=== PATIENT | male | born 1975 | race Caucasian/White ===

== ENCOUNTER 2020-09-17 10:10 | Outpatient (REF) | payer OTHER, SELFPAY ==
[2020-09-17 11:12] LABS: Alanine Aminotransferase 58 U/L (0-40); Albumin Level 4.3 g/dL (3.5-5.0); Alkaline Phosphatase 70 U/L (39-117); Aspartate Amino Transferase 40 U/L (5-37); Bilirubin Direct 0.4 mg/dL (0.0-0.5); Bilirubin Total 1.1 mg/dL (0.0-1.0); Cholesterol 155 mg/dL; HDL Cholesterol 40 mg/dL; LDL Cholesterol Calculated 96 mg/dl; Total Protein 6.7 g/dL (6.5-8.0); Triglycerides 99 mg/dL
[2020-09-17 13:07] LABS: Reflex LDLD? No
== END 2020-09-17 10:11 | disposition home or self-care (01) ==
LOC: HO.LNP 10:10
PROVIDERS: Visit Provider Internal Medicine
DX: E78.5 Hyperlipidemia, unspecified (principal)
CPT/HCPCS: 80061; 80076

== ENCOUNTER 2021-03-16 10:28 | Outpatient (REF) | payer OTHER, SELFPAY ==
[2021-03-16 10:32] LABS: MANUAL DIFF FLAG NO
[2021-03-16 10:59] LABS: Eosinophils Absolute Auto 0.1 X10*3/uL (0.0-0.4); Eosinophils Percent Auto 1.1 % (0-4); Imm Gran Abs Auto 0.01 X10*3/uL (0.00-0.03); Imm Gran Pct Auto 0.2 % (0.0-0.4); Mean Corpuscular HGB Conc 34.5 g/dl (31.0-36.0); Mean Corpuscular Volume 94.6 fL (80.0-98.0); Red Cell Distribution Width 12.2 % (11.0-16.0)
[2021-03-16 11:03] LABS: Appearance Urine CLEAR; Color Urine YELLOW; Glucose Urine UA NEG (NEG); Leukocyte Esterase Urine NEG (NEG); Nitrite Urine NEG (NEG); Specific Gravity - Urine <= 1.005 (1.005-1.025); Urine Blood NEG (NEG); Urine Ketones NEG (NEG); Urine Protein NEG (NEG-TRACE)
[2021-03-16 11:10] LABS: Basophils Percent Auto 0.4 % (0-2); Hemoglobin 15.2 g/dl (14.0-18.0); Lymphocytes Absolute Auto 1.7 X10*3/uL (1.2-4.9); Lymphocytes Percent Auto 32.2 % (20-40); Mean Corpuscular Hemoglobin 32.7 pg (27.0-33.0); Mean Platelet Volume 10.6 fL (9.4-12.4); Monocytes Absolute Auto 0.5 X10*3/uL (0.1-1.2); Monocytes Percent Auto 8.9 % (2-11); Neutrophils Absolute Auto 3.1 x10*3/uL (2.0-8.3); Neutrophils Percent Auto 57.2 % (45-73); Platelet Count 203 X10*3/uL (160-400); Red Blood Count 4.65 X10*6/uL (4.60-5.80); White Blood Count 5.4 X10*3/uL (4.8-10.8)
[2021-03-16 11:42] LABS: Alanine Aminotransferase 44 U/L (0-40); Albumin Level 4.3 g/dL (3.5-5.0); Alkaline Phosphatase 75 U/L (39-117); Anion Gap 13 (12-20); Aspartate Amino Transferase 36 U/L (5-37); Bilirubin Total 1.5 mg/dL (0.0-1.0); Blood Urea Nitrogen 14 mg/dL (9-16); Calcium 9.3 mg/dL (8.4-10.2); Carbon Dioxide 26 mmol/L (22-29); Chloride 107 mmol/L (96-108); Cholesterol 160 mg/dL; Estimated Glomerular Filt Rate > 60; Glucose Fasting 98 mg/dL (60-99); HDL Cholesterol 43 mg/dL; LDL Cholesterol Calculated 91 mg/dl; Potassium 3.9 mmol/L (3.3-5.1); Sodium 142 mmol/L (135-145); Total Protein 6.8 g/dL (6.5-8.0); Triglycerides 134 mg/dL
[2021-03-16 12:05] LABS: PSA,Total (Free>4and<10) 0.67 ng/mL (0.00-4.00)
[2021-03-16 13:47] LABS: Reflex LDLD? No
== END 2021-03-16 10:29 | disposition home or self-care (01) ==
LOC: HO.LNP 10:28
PROVIDERS: PCP Internal Medicine; Visit Provider Internal Medicine
DX: Z00.00 Encounter for general adult medical examination without abnormal findings (principal); Z12.5 Encounter for screening for malignant neoplasm of prostate; E78.2 Mixed hyperlipidemia; E78.5 Hyperlipidemia, unspecified; R79.89 Other specified abnormal findings of blood chemistry
CPT/HCPCS: 80053; 80061; 81003; 84153; 85025

== ENCOUNTER 2022-03-17 10:48 | Outpatient (REF) | payer SELFPAY ==
[2022-03-17 10:52] LABS: MANUAL DIFF FLAG NO
[2022-03-17 11:08] LABS: Basophils Percent Auto 0.5 % (0-2); Eosinophils Absolute Auto 0.1 X10*3/uL (0.0-0.4); Eosinophils Percent Auto 1.5 % (0-4); Hematocrit 44.3 % (42.0-52.0); Hemoglobin 15.2 g/dl (14.0-18.0); Imm Gran Abs Auto 0.01 X10*3/uL (0.00-0.03); Imm Gran Pct Auto 0.2 % (0.0-0.4); Lymphocytes Absolute Auto 2.1 X10*3/uL (1.2-4.9); Lymphocytes Percent Auto 34.2 % (20-40); Mean Corpuscular HGB Conc 34.3 g/dl (31.0-36.0); Mean Corpuscular Hemoglobin 32.1 pg (27.0-33.0); Mean Corpuscular Volume 93.5 fL (80.0-98.0); Mean Platelet Volume 11.1 fL (9.4-12.4); Monocytes Absolute Auto 0.6 X10*3/uL (0.1-1.2); Monocytes Percent Auto 9.8 % (2-11); Neutrophils Absolute Auto 3.3 x10*3/uL (2.0-8.3); Neutrophils Percent Auto 53.8 % (45-73); Platelet Count 190 X10*3/uL (160-400); Red Blood Count 4.74 X10*6/uL (4.60-5.80); White Blood Count 6.2 X10*3/uL (4.8-10.8)
[2022-03-17 11:10] LABS: Appearance Urine Clear; Color Urine Yellow; Glucose Urine UA Negative (Negative); Leukocyte Esterase Urine Negative (Negative); Nitrite Urine Negative (Negative); PH 6.5 (5.0-9.0); Urine Blood Negative (Negative); Urine Ketones Negative (Negative); Urine Protein Negative (Neg-Trace)
[2022-03-17 11:14] LABS: Bacteria Urine None Seen (None Seen); Hyaline Casts Urine 0-2 /LPF (0-2); RBC Urine 0-2 /HPF (0-2); Squamous Epithelial Cell Urine 0-2 /HPF (0-2); WBC Urine 0-5 /HPF (0-5)
[2022-03-17 11:15] LABS: Alanine Aminotransferase 52 U/L (0-40); Albumin Level 4.4 g/dL (3.5-5.0); Alkaline Phosphatase 75 U/L (39-117); Anion Gap 15 (12-20); Aspartate Amino Transferase 38 U/L (5-37); Bilirubin Total 1.6 mg/dL (0.0-1.0); Blood Urea Nitrogen 12 mg/dL (9-16); Calcium 9.3 mg/dL (8.4-10.2); Carbon Dioxide 26 mmol/L (22-29); Chloride 104 mmol/L (96-108); Cholesterol 168 mg/dL; Estimated Glomerular Filt Rate > 60; Glucose Fasting 98 mg/dL (60-99); HDL Cholesterol 40 mg/dL; LDL Cholesterol Calculated 103 mg/dl; Sodium 141 mmol/L (135-145); Triglycerides 126 mg/dL
[2022-03-17 11:38] LABS: PSA,Total (Free>4and<10) 0.61 ng/mL (0.00-4.00)
== END 2022-03-17 10:49 | disposition home or self-care (01) ==
LOC: HO.LNP 10:48
PROVIDERS: Visit Provider Internal Medicine
DX: Z00.00 Encounter for general adult medical examination without abnormal findings (principal); Z12.5 Encounter for screening for malignant neoplasm of prostate; E78.5 Hyperlipidemia, unspecified; R79.89 Other specified abnormal findings of blood chemistry
CPT/HCPCS: 80053; 80061; 81001; 84153; 85025

== ENCOUNTER 2022-09-23 09:09 | Outpatient (REF) | payer BC, SELFPAY ==
[2022-09-23 10:35] LABS: Alanine Aminotransferase 34 U/L (0-40); Albumin Level 4.3 g/dL (3.5-5.0); Alkaline Phosphatase 73 U/L (39-117); Aspartate Amino Transferase 28 U/L (5-37); Bilirubin Direct 0.4 mg/dL (0.0-0.5); Bilirubin Total 1.6 mg/dL (0.0-1.0); Cholesterol 173 mg/dL; HDL Cholesterol 44 mg/dL; LDL Cholesterol Calculated 108 mg/dl; Total Protein 6.8 g/dL (6.5-8.0); Triglycerides 107 mg/dL
== END 2022-09-23 09:10 | disposition home or self-care (01) ==
LOC: HO.LNP 09:09
PROVIDERS: Visit Provider Internal Medicine
DX: E78.2 Mixed hyperlipidemia (principal)
CPT/HCPCS: 80061; 80076

== ENCOUNTER 2022-10-26 15:23 | Emergency (ER) | payer BC, SELFPAY ==
--- NOTE | ~2022-10-26 | CT_ITS ---
EXAMINATION: CT HEAD WITHOUT CONTRAST CLINICAL INFORMATION: Head injury. COMPARISON: None. TECHNIQUE: Contiguous axial imaging was performed from the skull base to vertex without intravenous administration of contrast. Coronal and sagittal reformatted images are performed at the CT scanner. [This CT examination was performed using dose optimization techniques as appropriate, variously including the following: *Automated exposure control *Adjustment of mA and/or kV according to patient size (this includes techniques or standardized protocols for targeted exams where dose is matched to indication/reason for exam; i.e. extremities or head) *Use of iterative reconstruction technique] DLP: 651 mGy-cm. FINDINGS: There is no evidence of acute intracranial hemorrhage or territorial infarction. No abnormal mass-effect or midline shift is seen. Hawthorne to white matter differentiation is well preserved. No extra-axial fluid collections are identified. The ventricles are normal in size. There is no abnormal attenuation within the brain parenchyma. There is no osseous abnormality. The mastoid air cells and visualized portions of the paranasal sinuses are well-aerated. CT/CT head/brain wo IV con IMPRESSION: No acute intracranial pathology.
--- NOTE | ~2022-10-26 | XR_ITS ---
EXAMINATION: XR ELBOW, LEFT CLINICAL INFORMATION: Left elbow pain, fell off a ladder COMPARISON: None available. TECHNIQUE: AP, lateral, and oblique views of the left elbow. FINDINGS: No definite evidence for acute fracture or dislocation; there is small spurring of lateral epicondyle. Radial head and neck appear intact. There is spurring of the coronoid process of the ulna. No appreciable distention of the elbow fat pads. XR/XR elbow LT min 3V IMPRESSION: 1. No definite evidence for acute fracture or dislocation. Degenerative changes. 2. Small spurring of the lateral epicondyle.
--- NOTE | 2022-10-26 15:43 | ED.GENADULT ---
HPI - General Adult General Chief complaint: Fall Stated complaint: fell off ladder, head injury, R elbow inj Time Seen by Provider: 10/26/22 17:39 Source: patient, RN notes reviewed and old records reviewed Mode of arrival: ambulatory History of Present Illness HPI narrative: 47-year-old male with no significant past medical history presenting to the ED complaining of facial laceration and left elbow pain s/p mechanical fall off 4-5 foot ladder around 1400. Denies taking anticoagulation or LOC. Last tetanus unknown. Denies symptoms prior to fall. Admits fell onto left side and hit head. Denies neck/back pain, abdominal pain, CP, incontinence, numbness/tingling, vision loss Onset (ago): hour(s) Related Data Allergies Allergy/AdvReac Type Severity Reaction Status Date / Time No Known Allergies Allergy Unverified 01/23/20 15:11 [No Known Allergies*] Review of Systems Review of Systems: Constitutional: No Fever, No Chills ENT/Mouth: No Ear Pain, No Nasal Congestion, No sore throat, No Rhinorrhea, No Swallowing Difficulty Cardiovascular: No Chest Pain, No SOB Respiratory: No Cough, No Sputum, No Wheezing Gastrointestinal: No Nausea, No Vomiting, No Diarrhea, No Constipation, No Abdominal pain Genitourinary: No Dysuria, No Urinary Frequency, No Hematuria, No Urinary Incontinence/retention Musculoskeletal: + joint pain, No Myalgias, No Joint Swelling, +headache Skin: + Skin Lesions, No rash Neuro: No Weakness, No Numbness, No Paresthesias Yes all other systems are reviewed and are negative Constitutional: Constitutional: Reports as per HPI Neurologic: Denies Abnormal speech present [facility] Past Medical History Attestation statement: The following information was validated with the patient. Source: old records reviewed Physical Exam ED Vital Signs: Vital Signs - 24 hr 10/26/22 15:45 10/26/22 17:38 Temperature 97.9 F Pulse Rate 76 58 Respiratory Rate 16 16 Blood Pressure 118/76 111/69 Pulse Oximetry 97 98 Oxygen Delivery Method Room Air Room Air BMI result Body Mass Index 26.0 Const General: cooperative, healthy appearing and no acute distress Orientation/consciousness: patient oriented x3 Limitations: no limitations HENMT Other: +1.5cm superficial irregular laceration noted to right lateral eyebrow. No active bleeding. No periorbital step-off Head: Yes normal to inspection and Yes atraumatic Ears: hearing grossly normal bilaterally General nose exam: Normal external nose present Face and sinus: Yes normal facial exam Throat: Yes posterior oropharynx normal Eyes General: appearance normal, both eyes and all related structures Pupils: Equal, round and reactive pupils present EOM: EOMs intact bilaterally Neck Other: No midline cervical spinous tenderness or step-off Neck: Yes normal visual inspection and Yes no meningeal signs Resp Effort & Inspection: normal respiratory effort and no respiratory distress Auscultation: clear to auscultation bilaterally Cardio Rate: regular rate Heart sounds: S1 normal heart sound present and S2 normal heart sound present GI Inspection: Yes normal to inspection Palpation (GI): Soft to palpation, nontender, no guarding and not rigid General: Yes no CVA tenderness Back/Spine/Pelvis Other: No midline cervical/thoracic/lumbar spinous tenderness/step-off or deformity Back: no CVA tenderness Skin Rashes: no rashes Wounds: no wounds Neuro General: patient oriented x3, gait normal, tone normal, moves all extremities, no meningeal signs, no focal motor deficits and CN's II-XI intact bilaterally Cranial nerves: Yes CN's II-XII intact bilaterally and Yes Equal, round and reactive pupils present Cognition (Neuro): normal cognition Speech: No Abnormal speech present Gait exam (Neuro): Normal gait present Motor exam (neuro): 5/5 motor strength present throughout Extrem Other: Left elbow without noted deformity. Mild swelling. Mild tenderness. Full range of motion intact with slight discomfort. Neurovascular intact distally. Pronation/supination intact General: Yes normal to inspection Course Course Course Narrative: CT head/brain wo IV con IMPRESSION: No acute intracranial pathology. XR elbow LT min 3V IMPRESSION: 1.? No definite evidence for acute fracture or dislocation. Degenerative changes. 2.? Small spurring of the lateral epicondyle. Results discussed with patient including worrisome signs and symptoms and strict return precautions, and when to return to the emergency department. They verbalized understanding and feel safe for discharge at this time. Medications Administered Discontinued Medications Generic Name Dose Route Start Last Admin Trade Name Freq PRN Reason Stop Dose Admin Diphtheria/Tetanus/Acell Pertussis 0.5 ml 10/26/22 15:48 10/26/22 17:45 Diphth,Pertus(Acell),Tet Adult 0.5 Ml Syringe IM 10/26/22 15:49 0.5 ml .ONCE ONE Administration Procedures Laceration Laceration 1: Site: face Side (If applicable): right Size (cm): 1.5 Description: irregular Depth: simple, single layer Pre-repair: wound explored Skin layer closed with: other (dermabond) Medical Decision Making Medical Decision Making [facility] Narrative: 47-year-old male with no significant past medical history presenting to the ED complaining of facial laceration and left elbow pain s/p mechanical fall off 4-5 foot ladder around 1400. On exam vital signs stable, NAD, nontoxic appearing my physical exam as noted above. Facial laceration noted, underlying structures intact, no raccoon eyes/Cordova sign, left elbow with mild tenderness. Concern for ICH vs fractures vs sprain. No evidence of infection plan: Head CT, x-ray repair wound Please refer to course for remaining clinical decision making, interpretation of labs/imaging results, and discussions with consultants and/or family members. Differential Diagnosis Differential Diagnoses: The differential diagnosis associated with the presentation includes As above Admission/Observation Consideration of admission/observation: Escalation of care including admission/observation considered Lab Data [facility] Lab Attestation statement: I reviewed the patient's lab results. Radiology Impression Discussion of test interpretation with radiology: I have reviewed the radiologist's reading. External Record Review External record reviewed: Inpatient record, Office record, Outpatient record, Prior outpatient labs, Prior outpatient radiology, Primary care record and Outside ED record Tests considered The following testing was considered but not selected: As above Discharge Plan Discharge Clinical Impression: Facial laceration, Elbow pain Patient Disposition: Home, Self-Care Instructions: Laceration (DC), Arm Pain (ED) Additional Instructions: Your head and elbow x-rays are unremarkable Your wound was repaired with skin glue, do not get the area, keep dry and clean Pat dry, do not rub If begins to look infected return to the ED your tetanus was updated Follow-up with your doctor. If symptoms persist or worsening of constant worsening headache, persistent nausea/vomiting or fever return to the ED Referrals: Gordon Cali MD [Primary Care Provider] - Discharge Date/Time: 10/26/22 18:15
[2022-10-26 15:45] VITALS: BP 118/76; PULSE 76; RESP 16; TEMP 36.6; O2SAT 97; BMI 26.0
[2022-10-26 17:38] VITALS: BP 111/69; PULSE 58; RESP 16; O2SAT 98
[2022-10-26] MEDS: Diphth,Pertus(ACell),Tet Adult 0.5 ML SYRINGE IM (17:45)
== END 2022-10-26 18:15 | disposition home or self-care (01) ==
PROVIDERS: Emergency Provider Emergency Medicine Emergency Medical Services; PCP Internal Medicine
DX: S01.81XA Laceration without foreign body of other part of head, initial encounter (principal); W11.XXXA Fall on and from ladder, initial encounter; M25.522 Pain in left elbow; Y93.9 Activity, unspecified; Y92.9 Unspecified place or not applicable; Y99.9 Unspecified external cause status
CPT/HCPCS: 12011; 70450; 73080; 90471; 90715; 99282; 99284

== ENCOUNTER 2023-02-24 11:43 | Day surgery (SDC) | payer BC, SELFPAY ==
--- NOTE | 2023-02-23 11:50 | P.CONAN_ITS ---
Documented by User: Jalyn Chaudhary NP 02/23/23 11:52 HPI - Anesthesia Eval Consult details Narrative: 48yo M for Upper Endoscopy and Colonoscopy [facility] Past Medical History Medical History (Updated 02/23/23 @ 11:51 by Jalyn Chaudhary NP) HLD (hyperlipidemia) Social History Social History Patient Tobacco Use Status: Never used Tobacco Are you DNR?: No Advance Directives: No Advance Directives Information Provided: Yes Recently lost weight without trying: No Nutrition Risks: No Nutritional Risk Poor oral hygiene: No Meds Allergies Allergy/AdvReac Type Severity Reaction Status Date / Time No Known Allergies Allergy Unverified 01/23/20 15:11 [No Known Allergies*] Home Medications Medication Instructions Recorded Confirmed Last Taken Type Fish Oil 02/23/23 02/20/23 History took half dose atorvastatin 10 mg tablet 10 mg PO DAILY 02/23/23 02/24/23 02/23/23 History multivitamin 02/23/23 02/17/23 History Exam Exam Date and Time: February 23, 2023 1150 Assessment and Plan Assessment Anesthesia Assessment: Chart Reviewed Documented by User: Panfilo Black MD 02/24/23 13:35 [facility] Past Medical History Medical History (Updated 02/23/23 @ 11:51 by Jalyn Chaudhary NP) HLD (hyperlipidemia) Family History Family history of problems with anesthesia: No Surgical History History of Problems with Anesthesia: No Social History Social History Patient Tobacco Use Status: Never used Tobacco Are you DNR?: No Advance Directives: No Advance Directives Information Provided: Yes Recently lost weight without trying: No Nutrition Risks: No Nutritional Risk Poor oral hygiene: No Meds Allergies Allergy/AdvReac Type Severity Reaction Status Date / Time No Known Allergies Allergy Unverified 01/23/20 15:11 [No Known Allergies*] Home Medications Medication Instructions Recorded Confirmed Last Taken Type Fish Oil 02/23/23 02/20/23 History took half dose atorvastatin 10 mg tablet 10 mg PO DAILY 02/23/23 02/24/23 02/23/23 History multivitamin 02/23/23 02/17/23 History Exam Airway Mallampati Class: II TM Dist: >3cm Neck ROM: Full Assessment and Plan Assessment Anesthesia Assessment: Anesthesia Plan Discussed Final Anesthetic Review Family History of Problems with Anesthesia: No History of Problems with Anesthesia: No NPO: Yes ASA Class: II Final Preanesthetic Review: No Changes in Pt Med Stat, Meds/Allgs Chart Reviewed, Consent Obtained/Reviewed and Anes Risks/Benef Reviewed Patient Risk: Low Procedure Risk: Low Anesthetic Plan Anesthetic Plan: MAC: Disposition: Standard PACU
[2023-02-24 11:56] VITALS: BMI 25.1
[2023-02-24 12:32] VITALS: BP 117/64; PULSE 89; RESP 18; TEMP 36.4; O2SAT 96
[2023-02-24] MEDS: Lactated Ringers 1,000 ML 100 ML IVCONT (12:34)
[2023-02-24 14:15] VITALS: BP 95/54; PULSE 80; RESP 16; TEMP 36.1; O2SAT 96
--- NOTE | 2023-02-24 14:25 | PM.OP ---
Brief Operative Note Date of Service: 02/24/23 Pre-op diagnosis: Screening, GERD Post-op diagnosis: other (Reflux, R/O Ramos's, Hiatal hernia, Gastritis/Gastric ulcer, Duodenitis, Colon polyp) Procedure: EGD with biopsies, Colonoscopy to the cecum and TI with bx/removal of polyp Surgeon: Jorge Zamudio MD Anesthesia: MAC Was an Leather Finisher used for this Procedure?: No Estimated blood loss (mL): 2.0 Pathology: other (A. Gastric antrum B. Esophagus 34-35cm C. Ascending colon polyp) Condition: stable Disposition: PACU
--- NOTE | 2023-02-24 14:27 | P.CONAN_ITS ---
[facility] Past Medical History Medical History (Updated 02/23/23 @ 11:51 by Jalyn Chaudhary NP) HLD (hyperlipidemia) Family History Family history of problems with anesthesia: No Surgical History History of Problems with Anesthesia: No Social History Social History Patient Tobacco Use Status: Never used Tobacco Meds Allergies Allergy/AdvReac Type Severity Reaction Status Date / Time No Known Allergies Allergy Unverified 01/23/20 15:11 [No Known Allergies*] Active Medications: Current Medications Lactated Ringer's (Lr) 1,000 mls @ 100 mls/hr IVCONT .Q10H ALLISON Last Admin: 02/24/23 12:34 Dose: 100 mls/hr Sodium Biphosphate/Sodium Phosphate (Sodium Phosphate,Luquillo-Dibasic 133 Ml Enema) 133 ml NC ONCE PRN PRN Reason: Poor Colonoscopy Prep Results Home Medications Medication Instructions Recorded Confirmed Last Taken Type Fish Oil 02/23/23 02/20/23 History took half dose atorvastatin 10 mg tablet 10 mg PO DAILY 02/23/23 02/24/23 02/23/23 History multivitamin 02/23/23 02/17/23 History Exam Exam Date and Time: February 24, 2023 1427 Height,Weight and Vital Signs: Height 5 ft 8 in Weight 74.843 kg Last Vital Signs Temp 97 F 02/24/23 14:15 Pulse 80 02/24/23 14:15 Resp 16 02/24/23 14:15 BP 95/54 L 02/24/23 14:15 Pulse Ox 96 02/24/23 14:15 O2 Del Method Room Air 02/24/23 14:15 Airway Mallampati Class: III TM Dist: >3cm Neck ROM: Full Assessment and Plan Assessment Anesthesia Assessment: Anesthesia Plan Discussed and Chart Reviewed Final Anesthetic Review Family History of Problems with Anesthesia: No History of Problems with Anesthesia: No NPO: Yes ASA Class: II Final Preanesthetic Review: No Changes in Pt Med Stat, Meds/Allgs Chart Reviewe d, Consent Obtained/Reviewed and Anes Risks/Benef Reviewed Patient Risk: Low Procedure Risk: Low Anesthetic Plan Anesthetic Plan: MAC: Disposition: Standard PACU
[2023-02-24 14:30] VITALS: BP 102/56; PULSE 66; RESP 16; TEMP 36.2; O2SAT 96
--- NOTE | 2023-02-24 21:07 | OP_ITS ---
DATE OF SERVICE: 02/24/2023 SURGEON: Jorge Zamudio MD INDICATIONS: The patient presents for evaluation of gastroesophageal reflux and colorectal cancer screening. Full consent was obtained from him for this, including risks of bleeding and perforation. PREOPERATIVE DIAGNOSIS: POSTOPERATIVE DIAGNOSIS: PROCEDURE PERFORMED: ESTIMATED BLOOD LOSS: COMPLICATIONS: ANESTHESIA: Monitored anesthesia care. ASSISTANTS: SPECIMENS: PREOPERATIVE DIAGNOSES: Gastroesophageal reflux disease, colorectal cancer screening. POSTOPERATIVE DIAGNOSES: Gastroesophageal reflux disease, colorectal cancer screening, rule out Ramos's esophagus, hiatal hernia, gastritis, gastric ulcers, duodenitis, colon polyp, internal hemorrhoids. PROCEDURES PERFORMED: Esophagogastroduodenoscopy with biopsies, and colonoscopy to the cecum and terminal ileum with biopsy and removal of polyp. DESCRIPTION OF PROCEDURE: The patient was placed in the left lateral decubitus position. The Olympus video gastroscope was passed in the posterior oropharynx and upper esophagus under direct vision. The scope was passed slowly to the distal esophagus. The gastroesophageal junction appeared at 35 cm. Extending from this to 34 cm were areas of some irregularity, edema, and possible Ramos's mucosa. There was no evidence of any ulceration nor any lesions. The scope entered the stomach. There was a small hiatal hernia. The scope was advanced to the pylorus. The duodenum was cannulated to the descending portion. The duodenum including the bulb was carefully inspected. There was some duodenitis in the duodenal bulb with small erosions, but no ulceration nor mass. The scope was withdrawn back into the stomach. In the gastric antrum, along the posterior wall, were 2 approximately 10 mm ulcers with surrounding edema and gastritis. There was no evidence of any mass and they appeared to be very benign. There was no bleeding. There was good peristalsis. The scope was retroflexed, visualizing the proximal stomach carefully, which appeared normal, without any sign of mass or ulceration. The scope was straightened. Biopsies were obtained from the area of the gastric ulcers and gastritis. The scope withdrawn back to the esophagus. Multiple biopsies were obtained between 34 and 35 cm. Proximal to 34 cm, the esophageal mucosa appeared normal. The scope was withdrawn from the patient. He was turned around for the colonoscopy. The digital rectal exam revealed no abnormalities. The Olympus video pediatric colonoscope was then entered into the rectum and advanced easily to the cecum. Once in the cecum, I did identify normal-appearing cecal pouch with appendiceal orifice and a normal-appearing ileocecal valve. The terminal ileum was cannulated and appeared normal. The scope was withdrawn back in the colon. The entire cecum and ileocecal valve appeared normal. The scope was then slowly withdrawn assessing all mucosal surfaces carefully. Preparation was excellent. In the proximal ascending colon, there was an approximately 4 mm polyp, which was biopsied and completely removed with the cold biopsy forceps. I did not visualize any other polyps, colitis, or angiodysplasia. In the rectum, scope was retroflexed visualizing internal hemorrhoids, but no other pathology. The rectal mucosa appeared normal. The scope was straightened and withdrawn from the patient. He tolerated both procedures well and was returned to the recovery area in stable condition. IMPRESSION: 1. Hiatal hernia, gastroesophageal reflux, rule out Ramos's esophagus. 2. Gastric ulcers, rule out Helicobacter pylori. 3. Duodenitis. 4. Colon polyp. 5. Internal hemorrhoids. PLAN: The results of the pathology will be checked. If the polyp is a tubular adenoma, I would recommend a followup colonoscopy in 5 years. If it is only hyperplastic, I would recommend a followup colonoscopy in 10 years. Given the upper endoscopy findings, I shall start him on omeprazole 40 mg daily. If there is evidence of Ramos's esophagus without dysplasia, I would recommend a repeat upper endoscopy within 2 to 3 years. If Helicobacter pylori is present in the gastric biopsies, I would recommend treating that as well. He will be seen in followup as well. He was advised to avoid all aspirin and NSAIDs on a long-term basis. MD ANAMARIA Hodge/SARAH / [id number] MTDD
== END 2023-02-24 15:04 | disposition home or self-care (01) ==
PROVIDERS: PCP Internal Medicine; Visit Provider Internal Medicine
PROC: (CPT 45380; principal; 2023-02-24 12:50)
DX: Z12.11 Encounter for screening for malignant neoplasm of colon (principal); Z80.0 Family history of malignant neoplasm of digestive organs; K63.5 Polyp of colon; K64.8 Other hemorrhoids; K21.9 Gastro-esophageal reflux disease without esophagitis; K25.9 Gastric ulcer, unspecified as acute or chronic, without hemorrhage or perforation; K29.60 Other gastritis without bleeding; K29.80 Duodenitis without bleeding; K44.9 Diaphragmatic hernia without obstruction or gangrene; E78.00 Pure hypercholesterolemia, unspecified; Z79.899 Other long term (current) drug therapy
CPT/HCPCS: 45380; 43239; 88305; 88342

== ENCOUNTER 2023-03-21 11:36 | Outpatient (REF) | payer BC, SELFPAY ==
[2023-03-21 11:40] LABS: MANUAL DIFF FLAG NO
[2023-03-21 12:17] LABS: Appearance Urine Clear; Basophils Percent Auto 0.6 % (0-2); Color Urine Yellow; Eosinophils Absolute Auto 0.2 X10*3/uL (0.0-0.4); Eosinophils Percent Auto 3.9 % (0-4); Glucose Urine UA Negative (Negative); Hematocrit 44.1 % (42.0-52.0); Hemoglobin 15.5 g/dl (14.0-18.0); Imm Gran Abs Auto 0.01 X10*3/uL (0.00-0.03); Imm Gran Pct Auto 0.2 % (0.0-0.4); Leukocyte Esterase Urine Negative (Negative); Lymphocytes Absolute Auto 1.7 X10*3/uL (1.2-4.9); Lymphocytes Percent Auto 31.5 % (20-40); Mean Corpuscular HGB Conc 35.1 g/dl (31.0-36.0); Mean Corpuscular Hemoglobin 32.6 pg (27.0-33.0); Mean Corpuscular Volume 92.6 fL (80.0-98.0); Mean Platelet Volume 10.7 fL (9.4-12.4); Monocytes Absolute Auto 0.6 X10*3/uL (0.1-1.2); Monocytes Percent Auto 10.4 % (2-11); Neutrophils Absolute Auto 2.9 x10*3/uL (2.0-8.3); Neutrophils Percent Auto 53.4 % (45-73); Nitrite Urine Negative (Negative); PH 6.5 (5.0-9.0); Platelet Count 191 X10*3/uL (160-400); Red Blood Count 4.76 X10*6/uL (4.60-5.80); Red Cell Distribution Width 11.9 % (11.0-16.0); Urine Blood Negative (Negative); Urine Ketones Negative (Negative); Urine Protein Negative (Neg-Trace); White Blood Count 5.4 X10*3/uL (4.8-10.8)
[2023-03-21 12:29] LABS: Alanine Aminotransferase 39 U/L (0-40); Albumin Level 4.2 g/dL (3.5-5.0); Alkaline Phosphatase 74 U/L (39-117); Anion Gap 11 (12-20); Aspartate Amino Transferase 36 U/L (5-37); Bilirubin Direct 0.4 mg/dL (0.0-0.5); Bilirubin Total 1.1 mg/dL (0.0-1.0); Blood Urea Nitrogen 11 mg/dL (9-16); Calcium 9.7 mg/dL (8.4-10.2); Carbon Dioxide 30 mmol/L (22-29); Chloride 103 mmol/L (96-108); Cholesterol 171 mg/dL (<200); Estimated Glomerular Filt Rate > 60; Glucose Fasting 102 mg/dL (60-99); HDL Cholesterol 42 mg/dL (>40); LDL Cholesterol Calculated 106 mg/dL (<100); Potassium 3.9 mmol/L (3.3-5.1); Sodium 140 mmol/L (135-145); Total Protein 7.1 g/dL (6.5-8.0); Triglycerides 115 mg/dL (<150)
[2023-03-21 12:45] LABS: PSA,Total (Free>4and<10) 0.85 ng/mL (0.00-4.00)
== END 2023-03-21 11:37 | disposition home or self-care (01) ==
LOC: HO.LNP 11:36
PROVIDERS: Visit Provider Internal Medicine
DX: Z00.00 Encounter for general adult medical examination without abnormal findings (principal); R79.89 Other specified abnormal findings of blood chemistry; E78.2 Mixed hyperlipidemia; Z12.5 Encounter for screening for malignant neoplasm of prostate
CPT/HCPCS: 80053; 80061; 80076; 81003; 82248; 84153; 85025

== ENCOUNTER 2023-03-27 10:41 | Outpatient (REF) | payer BC, SELFPAY ==
[2023-03-28 11:53] LABS: Lyme Abs Screen <0.90 index
== END 2023-03-27 10:42 | disposition home or self-care (01) ==
LOC: HO.LNP 10:41
PROVIDERS: Visit Provider Internal Medicine
DX: S30.861D Insect bite (nonvenomous) of abdominal wall, subsequent encounter (principal); W57.XXXD Bitten or stung by nonvenomous insect and other nonvenomous arthropods, subsequent encounter
CPT/HCPCS: 86617; 86618

== ENCOUNTER 2023-09-22 11:53 | Outpatient (REF) | payer BC, SELFPAY ==
[2023-09-22 12:29] LABS: Alanine Aminotransferase 73 U/L (0-40); Albumin Level 4.3 g/dL (3.5-5.0); Alkaline Phosphatase 77 U/L (39-117); Aspartate Amino Transferase 50 U/L (5-37); Bilirubin Direct 0.4 mg/dL (0.0-0.5); Bilirubin Total 1.3 mg/dL (0.0-1.0); Cholesterol 182 mg/dL (<200); HDL Cholesterol 51 mg/dL (>40); LDL Cholesterol Calculated 102 mg/dL (<100); Total Protein 7.3 g/dL (6.5-8.0); Triglycerides 145 mg/dL (<150)
[2023-09-22 14:49] LABS: Reflex LDLD? No
== END 2023-09-22 11:54 | disposition home or self-care (01) ==
LOC: HO.LNP 11:53
PROVIDERS: Visit Provider Internal Medicine
DX: E78.5 Hyperlipidemia, unspecified (principal)
CPT/HCPCS: 80061; 80076

== ENCOUNTER 2023-10-06 08:56 | Day surgery (SDC) | payer BC, SELFPAY ==
--- NOTE | 2023-10-04 12:31 | HO.ANESPROP2 ---
Documented by User: Jalyn Chaudhary NP 10/04/23 12:31 HPI - Anesthesia Eval Consult details Narrative: 48yo M for Upper Endoscopy [facility] Active Problems Active Problems: All Active Problems Gastric ulcer (Acute) Past Medical History Medical History (Updated 10/04/23 @ 15:46 by Jemma Blair, SEPIDEH) GERD (gastroesophageal reflux disease) HLD (hyperlipidemia) Family History Family history of problems with anesthesia: No Surgical History Surgical History (Updated 10/06/23 @ 09:58 by Luisa Brenner) History of esophagogastroduodenoscopy (EGD) History of Problems with Anesthesia: No Social History Social History Patient Tobacco Use Status: Never used Tobacco Use of substances other than those prescribed or required for medical reasons: No Are you DNR?: No Advance Directives: No Advance Directives Information Provided: Yes Meds Allergies Allergy/AdvReac Type Severity Reaction Status Date / Time No Known Allergies Allergy Verified 10/06/23 09:54 [No Known Allergies*] Home Medications ?Medication ?Instructions ?Recorded ?Confirmed ?Last Taken ?Type Fish Oil 2 cap PO BID 02/23/23 10/06/23 10/05/23 History atorvastatin 10 mg tablet 10 mg PO DAILY 02/23/23 10/06/23 02/23/23 History multivitamin 1 tab PO DAILY 02/23/23 10/06/23 02/17/23 History omeprazole 40 mg capsule,delayed 20 mg PO DAILY 10/06/23 10/06/23 Unknown History release Assessment and Plan Assessment Anesthesia Assessment: Chart Reviewed Final Anesthetic Review Family History of Problems with Anesthesia: No History of Problems with Anesthesia: No Documented by User: Panfilo Black MD 10/06/23 11:17 [facility] Past Medical History Medical History (Updated 10/04/23 @ 15:46 by Jemma Blair RN) GERD (gastroesophageal reflux disease) HLD (hyperlipidemia) Surgical History Surgical History (Updated 10/06/23 @ 09:58 by Luisa Brenner) History of esophagogastroduodenoscopy (EGD) Social History Social History Patient Tobacco Use Status: Never used Tobacco Use of substances other than those prescribed or required for medical reasons: No Are you DNR?: No Advance Directives: No Advance Directives Information Provided: Yes Meds Allergies Allergy/AdvReac Type Severity Reaction Status Date / Time No Known Allergies Allergy Verified 10/06/23 09:54 [No Known Allergies*] Home Medications ?Medication ?Instructions ?Recorded ?Confirmed ?Last Taken ?Type Fish Oil 2 cap PO BID 02/23/23 10/06/23 10/05/23 History atorvastatin 10 mg tablet 10 mg PO DAILY 02/23/23 10/06/23 02/23/23 History multivitamin 1 tab PO DAILY 02/23/23 10/06/23 02/17/23 History omeprazole 40 mg capsule,delayed 20 mg PO DAILY 10/06/23 10/06/23 Unknown History release Exam Airway Mallampati Class: III TM Dist: >3cm Neck ROM: Full Assessment and Plan Assessment Anesthesia Assessment: Anesthesia Plan Discussed Final Anesthetic Review NPO: Yes ASA Class: II Final Preanesthetic Review: No Changes in Pt Med Stat, Meds/Allgs Chart Reviewed, Consent Obtained/Reviewed and Anes Risks/Benef Reviewed Patient Risk: Low Procedure Risk: Low Anesthetic Plan Anesthetic Plan: TIVA Disposition: Standard PACU
[2023-10-04 15:45] VITALS: BMI 27.5
[2023-10-06 10:19] VITALS: BMI 27.5
[2023-10-06 10:21] VITALS: BP 122/73; PULSE 51; RESP 16; TEMP 36.6; O2SAT 97
[2023-10-06] MEDS: Lactated Ringers 1,000 ML 100 ML IVCONT (10:28)
[2023-10-06 11:46] VITALS: BP 126/85; PULSE 79; RESP 16; TEMP 36.1; O2SAT 97
--- NOTE | 2023-10-06 11:52 | PM.OP ---
Brief Operative Note Date of Service: 10/06/23 Pre-op diagnosis: GERD, Hx of gastric ulcers Post-op diagnosis: other (Hiatal hernia, GERD, R/O Ramos's) Procedure: EGD with biopsies Surgeon: Jorge Zamudio MD Anesthesia: MAC Was an Clinical Administrative Coordinator used for this Procedure?: No Estimated blood loss (mL): 2.0 Pathology: other (A. EG Junction at 36cm) Condition: stable Disposition: PACU
[2023-10-06 12:01] VITALS: BP 131/83; PULSE 75; RESP 16; O2SAT 96
[2023-10-06 12:16] VITALS: BP 136/91; PULSE 73; RESP 16; TEMP 36.1; O2SAT 98
--- NOTE | 2023-10-06 12:35 | OP_ITS ---
DATE OF SERVICE: 10/06/2023 SURGEON: Jorge Zamudio MD INDICATIONS: The patient presents for followup of a history of gastric ulcers and chronic reflux. Full consent has been obtained from him for this, including risks of bleeding and perforation. PREOPERATIVE DIAGNOSIS: POSTOPERATIVE DIAGNOSIS: PROCEDURE PERFORMED: Esophagogastroduodenoscopy with biopsies. ESTIMATED BLOOD LOSS: COMPLICATIONS: ANESTHESIA: Monitored anesthesia care. ASSISTANTS: SPECIMENS: PREOPERATIVE DIAGNOSES: History of gastric ulcers and gastroesophageal reflux. POSTOPERATIVE DIAGNOSES: History of gastric ulcers, gastroesophageal reflux, healed gastric ulcers, hiatal hernia, rule out Ramos esophagus. DESCRIPTION OF PROCEDURE: The patient was placed in the left lateral decubitus position. The Olympus video gastroscope was passed in the posterior oropharynx and upper esophagus under direct vision. The scope was passed slowly into the distal esophagus. The gastroesophageal junction appeared at 36 cm. There was some slight irregularity and several short, less than 1 cm, thin projections of possible Ramos mucosa. There was no esophagitis, ulceration, nor any lesions. The scope entered the stomach. There was a small hiatal hernia. The scope was advanced to the pylorus and the duodenum was cannulated to the descending portion. The duodenum including the bulb appeared normal without mass or ulceration. The scope was withdrawn back in the stomach. The gastric antrum and body appeared normal with good peristalsis. There was no sign of any residual ulcer disease. The scope was retroflexed visualizing the proximal stomach carefully, which appeared normal, without any sign of mass or ulceration. The scope was straightened and withdrawn back to the esophagus. Biopsies were obtained at the EG junction at 36 cm from the areas to look for Ramos mucosa. Proximal to this, the esophageal mucosa appeared normal. The scope was withdrawn from the patient. He tolerated the procedure well and was returned to the recovery area in stable condition. IMPRESSION: 1. History of gastroesophageal reflux, rule out Ramos esophagus. 2. Hiatal hernia. 3. Healed gastric ulcers. PLAN: The results of the biopsies will be checked. He just recently went from 40 mg to 20 mg of omeprazole daily and will continue that long-term. I did advise him to let me know if he has increasing reflux on that dose and we could always increase that again to 40 mg. He was advised to avoid all aspirin and NSAIDs long-term given his previous history of gastric ulcers. Of note, previous gastric biopsies have been negative for H pylori. If there is evidence of Ramos mucosa, I would then recommend a repeat upper endoscopy in 3 years. If it is negative for Ramos esophagus, then he will see me in 2027 for a followup colonoscopy and possibly repeat upper endoscopy as well. This has all been discussed with his as well. MD ANAMARIA Hodge/SARAH / [phone]
--- NOTE | 2023-10-06 17:09 | PC.NURSE ---
24 hour preop assessment documented by Dr Zamudio using paper form.
== END 2023-10-06 12:40 | disposition home or self-care (01) ==
PROVIDERS: PCP Internal Medicine; Visit Provider Internal Medicine
PROC: 0DJ08ZZ Inspection of Upper Intestinal Tract, Via Natural or Artificial Opening Endoscopic (ICD-10-PCS; CPT 43235; principal; 2023-10-06 12:00)
DX: K21.00 Gastro-esophageal reflux disease with esophagitis, without bleeding (principal); K44.9 Diaphragmatic hernia without obstruction or gangrene; Z87.19 Personal history of other diseases of the digestive system; Z80.0 Family history of malignant neoplasm of digestive organs; Z79.899 Other long term (current) drug therapy
CPT/HCPCS: 43239; 88305; 88313; J1596; J2704

== ENCOUNTER 2023-11-30 11:14 | Outpatient (REF) | payer BC, SELFPAY ==
[2023-11-30 12:19] LABS: Alanine Aminotransferase 45 U/L (0-40); Albumin Level 4.2 g/dL (3.5-5.0); Alkaline Phosphatase 81 U/L (39-117); Aspartate Amino Transferase 34 U/L (5-37); Bilirubin Direct 0.5 mg/dL (0.0-0.5); Bilirubin Total 1.6 mg/dL (0.0-1.0)
== END 2023-11-30 11:15 | disposition home or self-care (01) ==
LOC: HO.LNP 11:14
PROVIDERS: Visit Provider Internal Medicine
DX: K20.90 Esophagitis, unspecified without bleeding (principal)
CPT/HCPCS: 80076

== ENCOUNTER 2024-03-26 12:17 | Outpatient (REF) | payer BC, SELFPAY ==
[2024-03-26 12:23] LABS: MANUAL DIFF FLAG NO
[2024-03-26 12:35] LABS: Appearance Urine Clear; Basophils Percent Auto 0.2 % (0-2); Color Urine Yellow; Eosinophils Absolute Auto 0.1 X10*3/uL (0.0-0.4); Eosinophils Percent Auto 0.9 % (0-4); Glucose Urine UA Negative (Negative); Hematocrit 44.4 % (42.0-52.0); Hemoglobin 15.4 g/dl (14.0-18.0); Imm Gran Abs Auto 0.01 X10*3/uL (0.00-0.03); Imm Gran Pct Auto 0.2 % (0.0-0.4); Leukocyte Esterase Urine Negative (Negative); Lymphocytes Absolute Auto 1.7 X10*3/uL (1.2-4.9); Mean Corpuscular HGB Conc 34.7 g/dl (31.0-36.0); Mean Corpuscular Hemoglobin 32.6 pg (27.0-33.0); Mean Corpuscular Volume 94.1 fL (80.0-98.0); Mean Platelet Volume 10.7 fL (9.4-12.4); Monocytes Absolute Auto 0.6 X10*3/uL (0.1-1.2); Monocytes Percent Auto 9.8 % (2-11); Neutrophils Absolute Auto 3.5 x10*3/uL (2.0-8.3); Neutrophils Percent Auto 59.9 % (45-73); Nitrite Urine Negative (Negative); Platelet Count 195 X10*3/uL (160-400); Red Blood Count 4.72 X10*6/uL (4.60-5.80); Red Cell Distribution Width 12.5 % (11.0-16.0); Specific Gravity - Urine 1.015 (1.005-1.025); Urine Blood Negative (Negative); Urine Ketones Negative (Negative); Urine Protein Negative (Neg-Trace); White Blood Count 5.8 X10*3/uL (4.8-10.8)
[2024-03-26 12:39] LABS: Bacteria Urine None Seen (None Seen); Hyaline Casts Urine 0-2 /LPF (0-2); RBC Urine 0-2 /HPF (0-2); Squamous Epithelial Cell Urine 0-2 /HPF (0-2); WBC Urine 0-5 /HPF (0-5)
[2024-03-26 12:56] LABS: Alanine Aminotransferase 63 U/L (0-40); Albumin Level 4.3 g/dL (3.5-5.0); Alkaline Phosphatase 77 U/L (39-117); Anion Gap 9 (12-20); Aspartate Amino Transferase 45 U/L (5-37); Bilirubin Total 1.4 mg/dL (0.0-1.0); Blood Urea Nitrogen 10 mg/dL (9-16); Calcium 9.1 mg/dL (8.4-10.2); Carbon Dioxide 29 mmol/L (22-29); Chloride 107 mmol/L (96-108); Cholesterol 155 mg/dL (<200); Estimated Glomerular Filt Rate > 60; Glucose Fasting 103 mg/dL (60-99); HDL Cholesterol 43 mg/dL (>40); LDL Cholesterol Calculated 90 mg/dL (<100); Potassium 3.6 mmol/L (3.3-5.1); Sodium 141 mmol/L (135-145); Triglycerides 111 mg/dL (<150)
[2024-03-26 13:06] LABS: PSA,Total (Free>4and<10) 0.96 ng/mL (0.00-4.00)
== END 2024-03-26 12:18 | disposition home or self-care (01) ==
LOC: HO.LNP 12:17
PROVIDERS: Visit Provider Internal Medicine
DX: Z00.00 Encounter for general adult medical examination without abnormal findings (principal); E78.5 Hyperlipidemia, unspecified; R79.89 Other specified abnormal findings of blood chemistry; Z12.5 Encounter for screening for malignant neoplasm of prostate
CPT/HCPCS: 80053; 80061; 81001; 84153; 85025

== ENCOUNTER 2024-05-17 09:06 | Outpatient (REF) | payer BC, SELFPAY ==
[2024-05-17 11:39] LABS: Blood Urea Nitrogen 12 mg/dL (9-16); Estimated Glomerular Filt Rate > 60
[2024-05-17 12:02] LABS: HIV AB/AG Nonreactive (Nonreactive); HIV Num 1 0.05 S/CO (0.00-0.99)
[2024-05-17 12:37] LABS: CT PCR NOT DETECTED (Not Detect.); NG PCR NOT DETECTED (Not Detect.)
== END 2024-05-17 09:07 | disposition home or self-care (01) ==
LOC: HO.LAB 09:06
PROVIDERS: PCP Internal Medicine; Visit Provider Internal Medicine
DX: Z01.812 Encounter for preprocedural laboratory examination (principal); Z20.2 Contact with and (suspected) exposure to infections with a predominantly sexual mode of transmission
CPT/HCPCS: 82565; 84520; 87389; 87491; 87591

== ENCOUNTER 2024-07-04 10:27 | Outpatient (REF) | payer BC, SELFPAY ==
[2024-07-04 11:28] LABS: Alanine Aminotransferase 53 U/L (0-40); Albumin Level 4.3 g/dL (3.5-5.0); Alkaline Phosphatase 81 U/L (39-117); Aspartate Amino Transferase 44 U/L (5-37); Bilirubin Direct 0.4 mg/dL (0.0-0.5); Bilirubin Total 1.5 mg/dL (0.0-1.0); Cholesterol 250 mg/dL (<200); HDL Cholesterol 39 mg/dL (>40); LDL Cholesterol Calculated 177 mg/dL (<100); Total Protein 7.6 g/dL (6.5-8.0); Triglycerides 171 mg/dL (<150)
--- OUTSIDE RECORDS SUMMARY | 2024-07-04 12:12 | XMS_ITS ---
Author Organization [facility] Address [address] [place] [phone] Care Team Providers Care Digital Manager Name Role Phone Viraj MCGILL, Gordon Primary Care Provider Jorge Cisneros [phone] ALLERGIES No Known Allergies REASON FOR VISIT Patient presents today for gerd,gastric ulcers MEDICATIONS Medication SIG (Take, Route, Frequency, Duration) Notes Start Date End Date Status Omeprazole 20 MG 1 Orally Every morni ng for 30 day(s) 08/29/2023 Active Omeprazole 40 MG 1 every morning Oral ly Once every morning for 30 days 05/19/2023 Active Multivitamin Adult - 1 tablet Orally Onc e a day for 30 day(s) Active Fish Oil Active Atorvastatin Calcium 10 MG TAKE ONE TABL ET BY MOUTH EVERY DAY Oral for 90 Active SOCIAL HISTORY Tobacco Use: Social History Observation Description Date Details (start date - stop date) Never Smoker NA - NA Sex Assigned At : Social History Observation Description Sex Assigned At Unknown Tobacco Use/Smoking Question Answer Notes Patient is a nonsmoker Alcohol Screen Question Answer Notes Did you have a drink contain ing alcohol in the past year? Yes How often did you have a dri nk containing alcohol in the past year? 2 to 4 times a month (2 points) How many drinks did you have on a typical day when you were drinking in the past year? 5 or 6 drinks (2 points) Points 4 Interpretation Positive PROBLEMS Problem Type ICD Code Onset Dates Problem Status W/U Status Risk SNOMED Code Notes Problem Acute gastric ulcer (K25.3) Active confirmed Acute gastric u lcer (02711008) Problem Chronic GERD (K21.9) Active confirmed Gastroesophagea l reflux disease (disorder) (629298077) VITAL SIGNS Blood pressure systolic 00 mm Hg 08/29/19 24 Blood pressure diastolic 00 mm Hg 024 Height 67.5 in 08/29/2023 Weight 178 lbs 08/29/2023 BMI 27.46 kg/m2 08/29/2023 Encounters Encounter Location Date Provider Diagnosis [facility] [address] [place] [address] 08/29/2023 Jorge Zamudio Acute gastric ulcer K25.3 and Chronic GERD K21.9 ASSESSMENTS Encounter Date Diagnosis Assessment Notes Treatment Notes Treatment Clinical Notes 08/29/2023 Acute gastric ulcer (ICD-10 - K25.3) We will switch to the 20mg omeprazole 08/29/2023 Chronic GERD (ICD-10 - K21.9) PLAN OF TREATMENT Medication Medication Name Sig Start Date Stop Date Notes Omeprazole 20 MG 1 Orally Every morning for 30 day(s) 08/07 Treatment Notes Assessment Notes Acute gastric ulcer We will switch to e 20mg omeprazole Future Test Test Name Order Date UPPER GI ENDOSCOPY 08/29/2023 Next Appt Details Follow Up: prn, Reason: Progress Notes * Examination Category Sub-Category Detail Notes General Examination GENERAL APPEARANCE: pleasant , well nourished, well developed, in no acute distress HEAD: EYES: sclera non-icteric EARS: NOSE: THROAT: NECK/THYROID: no cervical lymphade nopathy, neck supple HEART: S1, S2 normal CHEST: LUNGS: clear to auscultatio n bilaterally ABDOMEN: normal bowel sounds, no guarding or rigidity, no guarding or rigidity, no masses palpable, soft, nontender, nondistended NEUROLOGIC: alert and oriented SKIN: nonjaundiced, no spi debby angiomata EXTREMITIES: no edema PERIPHERAL PULSES: BACK: BREASTS: MUSCULOSKELETAL: MALE GENITOURINARY: LYMPH NODES: RECTAL EXAM: FEMALE GENITOURINARY: ORAL CAVITY: mucosa moist
--- OUTSIDE RECORDS SUMMARY | 2024-07-04 12:12 | XMS_ITS ---
Author Organization [facility] Address [address] [place] [address] Care Team Providers Care Functional Support Analyst Name Role Phone Viraj MCGILL, Gordon Primary Care Provider Jorge Cisneros Unavailable [phone] REASON FOR VISIT acute gastric ulcer,gerd PROBLEMS Problem Type ICD Code Onset Dates Problem Status W/U Status Risk SNOMED Code Notes Problem Gastro-esophagea l reflux disease without esophagitis (K21.9) Active confirmed Gastro-esophage al reflux disease without esophagitis (883292056) Encounters Encounter Location Date Provider Diagnosis [facility] [address] [place], [place] [phone] 10/06/2023 Jorge Zamudio Gastro-esophageal reflux disease without esophagitis K21.9 ; Hiatal hernia K44.9 and Gastric ulcer K25.9 ASSESSMENTS Encounter Date Diagnosis Assessment Notes Treatment Notes Treatment Clinical Notes 10/06/2023 Gastro-esophageal reflux disease without esophagitis (ICD-10 - K21.9) 10/06/2023 Hiatal hernia (ICD-10 - K44.9) 10/06/2023 Gastric ulcer (ICD-10 - K25.9) PLAN OF TREATMENT No Information
--- OUTSIDE RECORDS SUMMARY | 2024-07-04 12:12 | XMS_ITS ---
Author Organization Gordon Cali MD Address [address] [place], [place] [phone] Care Team Providers Care Patient Services Representative Name Role Phone Gordon Cali Primary Care Provider Results Component Value Reference Range Notes Liver Panel (Not yet reviewe d by provider) Interpretation: Performing Lab:[facility], [address] [place] [phone] Notes/Report: Bilirubin Total 1.5 0.0-1.0 mg/dL Bilirubin Direct 0.4 0.0-0.5 mg/dL Aspartate Amino Transferase 44 5-37 U/L Alanine Aminotransferase 53 0-40 U/L Total Protein 7.6 6.5-8.0 g/dL Albumin Level 4.3 3.5-5.0 g/dL Alkaline Phosphatase 81 39-117 U/L Lipid Panel (Not yet reviewe d by provider) Interpretation: Performing Lab:[facility], [address] [place] [phone] Notes/Report: Triglycerides 171 <150 mg/dL Desirable Triglyceride: [...] Location Date Provider Diagnosis Gordon Cali MD [address] [place] [phone] 07/04/2024 Gordon Cali Mixed hyperlipidemia E78.2 ; Hyperlipidemia, unspecified E78.5 and Possible exposure to STD Z20.2 Assessments Encounter Date Diagnosis (ICD Code) Assessment Notes Treatment Notes Treatment Clinical Notes Section Notes 07/04/2024 Mixed hyperlipidemia (ICD-10 - E78.2) 07/04/2024 Hyperlipidemia, unspecified (ICD-10 - E78.5) 07/04/2024 Possible exposure to STD (ICD-10 - Z20.2) Plan Of Treatment Pending Test Test Name Order Date Liver Panel 07/04/2024 Lipid Panel 07/04/2024 Next Appt Details Provider Name:Gordon alexander, 07/11/2024 07:45:00 AM, [address] [place] [address], [address], [phone], Provider Name:Gordon alexander, 04/01/2025 07:15:00 AM, [address] [place] [address], [phone], Provider Name:Gordon alexander, 04/08/2025 09:30:00 AM, [address] [place] [address], [phone], Progress Notes * Fabio BORDENDOB: [birth year] (49 yo M)Acc No.[id number]:07/04/2024 Progress Note Patient:Fabio FAN Provider:?Gordon Cali MD :1975???Age:49 Y???Sex:Male Roberto e:07/04/2024 Address:[address] [place] [phone] Subjective: * Chief Complaints: * ???1. FASTING LIPID AND LIVE R PANEL. * Medical History:? Objective: * Vitals:? Assessment: * Assessment: 1.?Mixed hyperlipidemia - E7 8.2 (Primary)???2.?Hyperlipidemia, unspecified - E78.5???3.?Possible exposure to STD - Z20.2??? Plan: * Treatment: * Procedure Codes:?28964 VENIP UNCT, ROUTINE* * * The named appointment provid er may or may not be the originator of this progress note, and it is not deemed complete until electronically signed by the appointment provider. Sign off status: Pending * Provider:?Gordon Cali MD Date:?0 07/04/2024 Generated for Shanda casey/Park/Kendraitting on:?07/04/2024 12:12 PM EST
--- OUTSIDE RECORDS SUMMARY | 2024-07-04 12:13 | XMS_ITS ---
Author Organization [facility] Address [address] [place] [address] Care Team Providers Care Multiple Drill Operator Name Role Phone Viraj MCGILL, Gordon Primary Care Provider Jorge Cisneros [phone] Encounters Encounter Location Date Provider Diagnosis [facility] [address] [place] [address] 08/29/2023 Jorge Zamudio PLAN OF TREATMENT No Information
--- OUTSIDE RECORDS SUMMARY | 2024-07-04 12:13 | XMS_ITS ---
Author Organization Gordon Cali MD Address [address] [place] [phone] Care Team Providers Care Microphone Operator Name Role Phone Gordon Cali Primary Care Provider REASON FOR VISIT Results CT Scan Encounters Encounter Location Date Provider Diagnosis Gordon Cali MD [facility] [address] [place] [phone] 06/11/2024 Gordon aCli Plan Of Treatment Next Appt Details Provider Name:Gordon alexander, 07/11/2024 07:45:00 AM, [address] [place] [address], [address] [place] [address], [phone], Provider Name:Gordon alexander, 04/01/2025 07:15:00 AM, [address] [place] [address], [place] [address], [place], [place], [phone], Provider Name:Gordon alexander, 04/08/2025 09:30:00 AM, [address] [place] [address], [address], [phone], Progress Notes * NANCYIngrid GALAVIZmadhubryannaDOB: [birth year] (49 yo M)Acc No.[id number]:06/11/2024 Patient:?Fabio BORDEN :1975???Age:49 Y???Sex:Male Address:[address] [place] [address] [place] [phone] * true * Date:? Generated for Shanda casey/Park/eTransmitting on:?07/04/2024 12:12 PM EST
--- OUTSIDE RECORDS SUMMARY | 2024-07-04 12:13 | XMS_ITS | Clinical Summary ---
Author Organization [facility] Address [address] [place] [address] Care Team Providers Care Ruby Engineer Name Role Phone Unavailable Primary Care Provider Unavailabl e Source Comments PLEASE NOTE, if this patient is a minor, it may be UNLAWFUL to discuss sensitive information that is contained in these records (such as FAMILY PLANNING, MENTAL HEALTH or SUBSTANCE ABUSE) with the minor patient's parent or other person without the patient's specific authorization.[facility] Immunizations Name Administration Dates Next Due Moderna COVID-19 Vaccine, re d cap blue label, 12+ Primary Series 04/28/2021,09/01/2020,08/05/2020 Social History Tobacco Use Types Packs/Day Years Used Date Smoking Tobacco: Never Assessed Social Connections Answer Date Recorded Social Connections and Isolation 0 08/05/2020 Financial Resource Strain Answer Date R ecorded Financial Resource Strain 0 2020 Stress Answer Date Recorded Stress 0 08/05/2020 Physical Activity Answer Date Recorded Physical Activity 0 08/05/2020 Food Insecurity Answer Date Recorded Food 0 08/05/2020 Transportation Needs Answer Date Record ed Transportation 0 08/05/2020 Housing Stability Answer Date Recorded Housing 0 08/05/2020 Safety and Environment Answer Date Gregory rded Safety 0 08/05/2020 Utilities Answer Date Recorded Utilities 0 08/05/2020 Employment Answer Date Recorded Employment 0 08/05/2020 Sex and Gender Information Value Date Recorded Sex Assigned at Not on file Legal Sex Male 8:24 AM PDT Gender Identity Not on file Sexual Orientation Not on file Plan of Treatment Health Maintenance Due Date Last Done Comments Diabetes Screening 1975 Lipid Screening 1975 Tobacco Screening 1977 Annual Preventive Care Visit 1995 Hypertension Screening (#1) 1995 Imm-Hepatitis B (1 of 3 - 19 + 3-dose series) 01/24/1996 CT Colonography 2022 Colonoscopy 2022 Colorectal Cancer Screening 2022 FIT/gFOBT 2022 Fecal DNA 2022 Flexible Sigmoidoscopy 2022 [id number]-17 ( season) 2024 04/28/2021, 09/01/2020, 08/05/2020 Imm-Influenza (#1) 2024 02/09/2021, 0 01/29/2020, 02/26/2019 Alcohol and Drug Screen 05/08/2024 Depression Annual Screen 05/08/2024 Imm-DTaP/Tdap/Td (2 - Td or Tdap) 02/03/2028 018 HIV Screening Completed 08/03/2020 Hepatitis C Screening Completed 08/03/2020 Insurance [facility]
--- OUTSIDE RECORDS SUMMARY | 2024-07-04 12:13 | XMS_ITS | Clinical Summary ---
Author Organization [facility] [address] Address [address] [place] [address] Care Team Providers Care Pellet Press Operator Name Role Phone Damian Cali MD Primary Care Provider [phone] Social History Tobacco Use Types Packs/Day Years Used Date Smoking Tobacco: Never Assessed Sex and Gender Information Value Date Recorded Sex Assigned at Not on file Legal Sex Male 9:19 AM EDT Gender Identity Not on file Sexual Orientation Not on file Plan of Treatment Health Maintenance Due Date Last Done Comments HIV screening 1990 Hepatitis C screening 1995 Tetanus adult (Td q 10,TDAP once) 1997 Lipid disorder screening 2017 Colon cancer screening, Colonoscopy 2022 Diabetes screening 2022 Influenza vaccine 12/07/2023 Covid-19 vaccine series ( - 2023-25 season) 2024 RSV Discussion (1 - 1-dose 7 5+ series) 01/24/2052 Meningococcal Vaccine Aged Out No eduardo raf eligible based on patient's age to complete this topic Pneumococcal Vaccine (2 - 49 years) Aged Out No longer eligible based on patient's age to complete this topic Insurance CIGNA CIG CIGNA Care Teams Pellet Press Operator Relationship Specialty Start Date End Date Damian Cali MD [address] [place] [phone] PCP - General Internal Medicine 08/06/18
== END 2024-07-04 10:28 | disposition home or self-care (01) ==
LOC: HO.LNP 10:27
PROVIDERS: Visit Provider Internal Medicine
DX: E78.5 Hyperlipidemia, unspecified (principal)
CPT/HCPCS: 80061; 80076

== ENCOUNTER 2024-07-11 10:51 | Outpatient (REF) | payer BC, SELFPAY ==
[2024-07-11 11:56] LABS: HIV AB/AG Nonreactive (Nonreactive); HIV Num 1 0.05 S/CO (0.00-0.99)
--- OUTSIDE RECORDS SUMMARY | 2024-07-11 13:10 | XMS_ITS ---
Author Organization [facility] Address [address] [place] [address] Care Team Providers Care Jet Piercer Operator Name Role Phone Viraj MCGILL, Gordon Primary Care Provider Jorge Cisneros [phone] Allergies No Known Allergies REASON FOR VISIT Patient presents today for gerd,gastric ulcers Medications Medication SIG (Take, Route, Frequency, Duration) [...] MOUTH EVERY DAY Oral for 90 Active Social History Tobacco Use: Social History [...] drinks (2 points) Points 4 Interpretation Positive Section Notes: Nonsmoker, occ alcohol Problems Problem Type SNOMED Code ICD Code Onset Dates Problem Status W/U Status Risk Notes Problem Acute gastric ulcer (05921008) Acute gastric ulcer (K25.3) Active confirmed Problem Gastroesophageal reflux disease (disorder) (188083983) Chronic GERD (K21.9) Active confirmed Vital Signs Blood pressure systolic 00 mm Hg 08/29/19 24 Blood pressure diastolic 00 mm Hg 024 Height 67.5 in 08/29/2023 Weight 178 lbs 08/29/2023 BMI 27.46 kg/m2 08/29/2023 Encounters Encounter Location Date Provider Diagnosis [facility] [address] [place] [address] 08/29/2023 Jorge Zamudio Acute gastric ulcer K25.3 and Chronic GERD K21.9 Assessments Encounter Date Diagnosis (ICD Code) Assessment Notes Treatment Notes Treatment Clinical Notes Section Notes 08/29/2023 Acute gastric ulcer (ICD-10 - K25.3) We will switch to the 20mg omeprazole Overall, Sean appears well. We did review the findings of his 2 procedures from last fall. I did recommend a followup colonoscopy in 2027 due to the family history of both colon cancer in a maternal uncle in his 50s, as well as mothers history of esophageal cancer. I did recommend a followup upper endoscopy this year given the finding of the previous gastric ulcers and changes of gastroesophageal reflux. I advised him that I think it would be important to be sure the ulcers have healed. I did advise him to continue to try to avoid NSAIDs. I will decrease the omeprazole to 20 mg daily. Full consent was obtained for the endoscopy, including risks of bleeding and perforation. The procedure will be done with monitored anesthesia care. We did review that if his upper endoscopy is negative for any residual ulcer disease or Ramos's esophagus, and would probably hold off on any future endoscopies from a surveillance standpoint. However, he is concerned about the family history in his mother and we discussed that we could probably do another upper endoscopy at the time of his next colonoscopy in 2027. Sean was comfortable with this plan. Thank you again for allowing me to participate in Sean's care. I shall continue to keep you advised of his progress. 08/29/2023 Chronic GERD (ICD-10 - K21.9) Overall, Sean appears well. We did review the findings of his 2 procedures from last fall. I did recommend a followup colonoscopy in 2027 due to the family history of both colon cancer in a maternal uncle in his 50s, as well as mothers history of esophageal cancer. I did recommend a followup upper endoscopy this year given the finding of the previous gastric ulcers and changes of gastroesophageal reflux. I advised him that I think it would be important to be sure the ulcers have healed. I did advise him to continue to try to avoid NSAIDs. I will decrease the omeprazole to 20 mg daily. Full consent was obtained for the endoscopy, including risks of bleeding and perforation. The procedure will be done with monitored anesthesia care. We did review that if his upper endoscopy is negative for any residual ulcer disease or Ramos's esophagus, and would probably hold off on any future endoscopies from a surveillance standpoint. However, he is concerned about the family history in his mother and we discussed that we could probably do another upper endoscopy at the time of his next colonoscopy in 2027. Sean was comfortable with this plan. Thank you again for allowing me to participate in Sean's care. I shall continue to keep you advised of his progress. Plan Of Treatment Medication Medication Name Sig Start Date Stop Date Notes Omeprazole 20 MG 1 Orally Every morning for 30 day(s) 08/07 Treatment Notes Assessment Notes Acute gastric ulcer We will switch to th e 20mg omeprazole Future Test Test Name Order Date UPPER GI ENDOSCOPY 08/29/2023 Next Appt Details Follow Up: prn, Reason: Progress Notes * LISA BORDENDOB: [birth year] (48 yo M)Acc No.[id number]:08/29/2023 Progress Notes Patient:?LISA BORDEN Provider:?Jorge Zamudio MD :1975???Age:48 Y???Sex:Male Roberto e:08/29/2023 Address:[address] [place] [address] [facility] Pcp:Gordon Cali MD Subjective: * Chief Complaints: * ???Patient presents today fo r gerd,gastric ulcers * HPI: ???incontinence:? I saw Sean in followup today in regard to his gastroesophageal reflux, history of gastric ulcers, and discussion of colorectal cancer screening. ?I last saw Sean in February 2023, at which time he underwent a screening colonoscopy and an upper endoscopy. The colonoscopy was negative other than a non-adenomatous polyp. His upper endoscopy revealed some changes of reflux but without Ramos's esophagus or erosive esophagitis. There was a small hiatal hernia. He did have 2 approximately 10 mm gastric ulcers but biopsies were negative for neoplasm or H. pylori. He was started on 40 mg of omeprazole at that time. He had been taking some intermittent NSAIDs and has been avoiding those since then. ?He presently reports he has been feeling well from a GI standpoint. He has not been having any symptoms of reflux. He denies any dysphagia, anorexia, early satiety, nausea, nor vomiting. He denies abdominal pain, jaundice, no weight loss. His bowel movements are regular and without any signs of bleeding. ?As you know, he does have a family history of his mother passing away from esophageal cancer and a maternal uncle having of colon cancer in his 50s. * ROS:?General/Constitutional:?Change in appetite?denies.?Chills?denies.?Fatigue?denies.?Ophthalmologic:?Comments?all negative.?ENT:?Comments?all negative.?Respiratory:?hemoptysis?denies.?Cough?denies.?Cardiovascular:?Chest pain?denies.?Orthopnea?denies.?Gastrointestinal:?Comments?See HPI for details.?Genitourinary:?Hematuria?denies.?Dysuria?denies.?Musculoskeletal:?Painful joints?denies.?Weakness?denies.?Skin:?Itching?denies.?Rash?denies.?Neurologic:?Headache?denies.?Seizures?denies.?Psychiatric:?Comments?all negative.? * Medical History:? * Surgical History:?Denies Pas t Surgical History * Hospitalization/Major Diagno stic Procedure:?No Hospitalization History. * Family History:?Father: torrey kaplan, diagnosed with Colon polyps.?Mother: , esophageal cancer.?Maternal uncle: 56 yrs, diagnosed with Colon cancer.? * Social History:?Tobacco Use:?Tobacco Use/Smoking?Patient is a?nonsmoker.?Drugs/Alcohol:?Alcohol Screen?Did you have a drink containing alcohol in the past year??Yes,?How often did you have a drink containing alcohol in the past year??2 to 4 times a month (2 points),?How many drinks did you have on a typical day when you were drinking in the past year??5 or 6 drinks (2 points),?Points?4,?Interpretation?Positive.?Miscellaneous:?Marital status: . Occupation: employment advisor. ???Nonsmoker, occ alcohol. * Medications:?TakingFish Oil Multivitamin Adult - Tablet 1 tablet Orally Once a dayAtorvastatin Calcium 10 MG Tablet TAKE ONE TABLET BY MOUTH EVERY DAY Oral Omeprazole 40 MG Capsule Delayed Release 1 every morning Orally Once every morningTaking Fish Oil Taking Multivitamin Adult - Tablet 1 tablet Orally Once a dayTaking Atorvastatin Calcium 10 MG Tablet TAKE ONE TABLET BY MOUTH EVERY DAY Oral Taking Omeprazole 40 MG Capsule Delayed Release 1 every morning Orally Once every morningDiscontinuedOmeprazole 40 MG Capsule Delayed Release 1 Orally Once a day every morningMedication List reviewed and reconciled with the patientDiscontinued Omeprazole 40 MG Capsule Delayed Release 1 Orally Once a day every morningMedication List reviewed and reconciled with the patient * Allergies:?N.K.D.A.yes[Aller gies Verified] Objective: * Vitals:?Wt: 178 lbs, Ht: 67. 5 in, BMI:27.46 Index, BP: 00/00 mm Hg. * Examination: ???General Examination: ?GENERAL APPEARANCE:?pleasant, well nourished, well developed, in no acute distress.?EYES:?sclera non-icteric.?ORAL CAVITY:?mucosa moist.?NECK/THYROID:?no cervical lymphadenopathy, neck supple.?SKIN:?nonjaundiced, no spider angiomata.?HEART:?S1, S2 normal.?LUNGS:?clear to auscultation bilaterally.?ABDOMEN:?normal bowel sounds, no guarding or rigidity, no guarding or rigidity, no masses palpable, soft, nontender, nondistended.?EXTREMITIES:?no edema.?NEUROLOGIC:?alert and oriented.? Assessment: * Assessment: 1.?Acute gastric ulcer - K25 .3 (Primary)?2.?Chronic GERD - K21.9? Overall, Sean appears well. We did review the findings of his 2 procedures from last fall. I did recommend a followup colonoscopy in 2027 due to the family history of both colon cancer in a maternal uncle in his 50s, as well as mothers history of esophageal cancer. I did recommend a followup upper endoscopy this year given the finding of the previous gastric ulcers and changes of gastroesophageal reflux. I advised him that I think it would be important to be sure the ulcers have healed. I did advise him to continue to try to avoid NSAIDs. I will decrease the omeprazole to 20 mg daily. Full consent was obtained for the endoscopy, including risks of bleeding and perforation. The procedure will be done with monitored anesthesia care. We did review that if his upper endoscopy is negative for any residual ulcer disease or Ramos's esophagus, and would probably hold off on any future endoscopies from a surveillance standpoint. However, he is concerned about the family history in his mother and we discussed that we could probably do another upper endoscopy at the time of his next colonoscopy in 2027. Sean was comfortable with this plan. Thank you again for allowing me to participate in Sean's care. I shall continue to keep you advised of his progress. Plan: * Treatment: Notes: We will switch to the 20mg omeprazole??2.?Chronic GERD? Start Omeprazole Capsule Delayed Release, 20 MG, 1, Orally, Every morning, 30 day(s), 30, Refills 6.?Procedure: UPPER GI ENDOSCOPY (Ordered for 08/29/2023)* with MACsched for 10/06/23 at 12:10 pm * Procedure Codes:?3017F COLOR ECTAL CA SCREEN DOC [id number] TOBACCO [id number]-[id number] BP SCR NOT PRFRM REC REASON NOS * Preventive Medicine:? ??Counseling:?Care goal follow-up plan:?Above Normal BMI Follow-up?Giving encouragement to exercise,?BMI management provided?Yes.? * Follow Up:?prn * * Sign off status: Completed true * Provider:?Jorge Zamudio MD Date:? 024 Generated for Shanda casey/Park/Olivier on:?07/11/2024 01:09 PM EST History and Physical Notes * HPI (History of Present Illness) Category Sub-Category Detail Notes Category Not es incontinence I saw Sean in followup today in regard to his gastroesophageal reflux, history of gastric ulcers, and discussion of colorectal cancer screening. I last saw Sean in February 2023, at which time he underwent a screening colonoscopy and an upper endoscopy. The colonoscopy was negative other than a non-adenomatous polyp. His upper endoscopy revealed some changes of reflux but without Ramos's esophagus or erosive esophagitis. There was a small hiatal hernia. He did have 2 approximately 10 mm gastric ulcers but biopsies were negative for neoplasm or H. pylori. He was started on 40 mg of omeprazole at that time. He had been taking some intermittent NSAIDs and has been avoiding those since then. He presently reports he has been feeling well from a GI standpoint. He has not been having any symptoms of reflux. He denies any dysphagia, anorexia, early satiety, nausea, nor vomiting. He denies abdominal pain, jaundice, no weight loss. His bowel movements are regular and without any signs of bleeding. As you know, he does have a family history of his mother passing away from esophageal cancer and a maternal uncle having of colon cancer in his 50s. Examination Category Sub-Category Detail Notes Category Not es General Examination GENERAL APPEARANCE: pleasant , well [...]
--- OUTSIDE RECORDS SUMMARY | 2024-07-11 13:10 | XMS_ITS ---
Author Organization [facility] Address [address] [place] [address] Care Team Providers Care Paper Novelty Maker Name Role Phone Viraj MCGILL, Gordon Primary Care Provider Jorge Cisneros [phone] REASON FOR VISIT acute gastric ulcer,gerd Problems Problem Type SNOMED Code ICD Code Onset Dates Problem Status W/U Status Risk Notes Problem Gastro-esophagea l reflux disease without esophagitis (472606324) Gastro-esophage al reflux disease without esophagitis (K21.9) Active confirmed Encounters Encounter Location Date Provider Diagnosis [facility] Out[address] [place], [place] [id number] 10/06/2023 Jorge Zamudio Gastro-esophageal reflux disease without [...] * LISA BORDENDOB: [birth year] (49 yo M)Acc No.[id number]:10/06/2023 EGD/MAC Patient:?LISA BORDEN Provider:?Jorge Zamudio MD :1975???Age:48 Y???Sex:Male Roberto e:10/06/2023 Address: [address], [id number] Pcp:Gordon Cali MD Subjective: * Chief Complaints: * ???1. Acute gastric ulcer,ge rd. * Medical History:? Objective: * Vitals:? Assessment: * Assessment: 1.?Gastro-esophageal reflux disease without esophagitis - K21.9 (Primary)???2.?Hiatal hernia - K44.9???3.?Gastric ulcer - K25.9??? Plan: * Treatment: * Procedure Codes:?47659 UPPER GI ENDOSCOPY, BIOPSY * * The named appointment provid er may or may not be the originator of this progress note, and it is not deemed complete until electronically signed by the appointment provider. Sign off status: Pending * Provider:?Jorge Zamudio MD Date:? 024 Generated for Shanda casey/Park/eTjamesonsmitting on:?07/11/2024 01:09 PM EST
--- OUTSIDE RECORDS SUMMARY | 2024-07-11 13:10 | XMS_ITS | Patient Health Record ---
Author Organization [facility] Address [address] [place] [address] Care Team Providers Care Carpet Renovator Name Role Phone Viraj MCGILL, Gordon Primary Care Provider Jorge Cisneros Unavailable [phone] Allergies No Known Allergies Results Component Value Reference Range Notes Pathology Reviewed date:10/17/2023 09:29:03 AM Interpretation: Performing Lab:[facility], [address] [place] [phone] Notes/Report: Name: Sean Borden Age/Sex: 48/M : 1975 Unit#: [id number] Attend Dr: Jorge Zamudio Re10/06/23 Status : [facility] Location: [facility] Disch: SPEC : [id number] RECD : 10/06/23-1253 STATUS: PAT LING NUM: [id number] ARNOLDO: 10/06/23-[address] [facility] [address]: Jorge Zamudio ENTERED: 10/06/23-12 56 SP TYPE: Surgical OTHR DR: Gordon Cali MD ORDERED: HE Stain/3, Gross Micro L4 Diagnosis EG junction, 36 cm, biopsy: - Cardiac-type mucos a with moderate chronic active inflammation; no intestinal metaplasia seen. - Active esophagitis (maximum eosinophil count 1 per high powered field). Clinical History Pre-Op Dx: Gastric ulcer Post-Op Dx: Hiatal h ernia, reflux Microscopic Description Microscopic sections examined. No metaplastic changes are seen, supported by AB/PAS stains Material Received EG junction at 36 Gross Description Received in formalin labeled ?EG junction at 36? are 4 rubbery, gonzalez-pink irregular tissue fragments ranging 0. 2 to 0.3 cm, submitted in toto in a cassette labeled A. CEDS Special studies orde red and performed: AB/PAS stains Copies To: Gordno Cali MD [address] [place] [address] [address] [place] [address] Jorge Zamudio [address] [place] [address] [address] [place] [address] Signed (si gnature on file) Terrance John MD 10/09/23 1506 END OF REPORT Reason For Referral No Information Medications Medication SIG (Take, Route, Frequency, Duration) Notes Start Date End Date Status Omeprazole 20 MG 1 Orally Every morni ng for 30 day(s) 08/29/2023 Active Omeprazole 40 MG 1 every morning Oral ly Once every morning for 30 days 05/19/2023 Active Multivitamin Adult - 1 tablet Orally Onc e a day for 30 day(s) Active Atorvastatin Calcium 10 MG TAKE ONE TABL ET BY MOUTH EVERY DAY Oral for 90 Active Fish Oil Active Social History Tobacco Use: Social History [...] Interpretation Positive Section Notes: Nonsmoker, occ alcohol Nonsmoker, occ alcohol Problems Problem Type SNOMED Code ICD Code Onset Dates Problem Status W/U Status Risk Notes Problem 934934862 Colon cancer screening (Z12.11) Active confirmed Problem Gastro-esophageal reflux disease without esophagitis (280958412) Gastro-esophageal reflux disease without esophagitis (K21.9) Active confirmed Problem Duodenitis (62793039) Duodenitis (K29.80) Active confirmed Problem 445562394 Family history o f colon cancer (Z80.0) Active confirmed Problem Acute gastric ulcer (08419447) Acute gastric ulcer (K25.3) Active confirmed Problem Gastritis (3687776) Gastritis (K29.70) Active c onfirmed Problem Gastric ulcer (758988253) Gastric ulcer (K25.9) Active confirmed Problem 068262079 Family history o f esophageal cancer (Z80.0) Active confirmed Problem 910953792 Gastroesophageal reflux disease, unspecified whether esophagitis present (K21.9) Active confirmed Problem Gastroesophageal reflux disease (disorder) (753379014) Chronic GERD (K21.9) Active confirmed Vital Signs Blood pressure diastolic 00 mm Hg 08/29/2023 Height 67.5 in 08/29/2023 Blood pressure systolic 00 mm Hg 08/29/2023 Weight 178 lbs 08/29/2023 BMI 27.46 kg/m2 08/29/2023 Encounters Encounter Location Date Provider Diagnosis [facility] Outpatient [address] [place], [place] [phone] 10/06/2023 Jorge Zamudio Gastro-esophageal reflux disease without esophagitis K21.9 ; Hiatal hernia K44.9 and Gastric ulcer K25.9 [facility] [address] [place] [phone] 08/29/2023 Jorge Zamudio Acute gastric ulcer K25.3 and Chronic GERD K21.9 [facility] [address] [place] [phone] 08/29/2023 Jorge Zamudio Assessments Encounter Date Diagnosis (ICD Code) Assessment Notes Treatment Notes Treatment Clinical Notes Section Notes 10/06/2023 Gastro-esophage al reflux disease without esophagitis (ICD-10 - K21.9) 10/06/2023 Hiatal hernia (ICD-10 - K44.9) 08/29/2023 Acute gastric ulcer (ICD-10 - K25.3) [...] to keep you advised of his progress. 10/06/2023 Gastric ulcer (ICD-10 - K25.9) Plan Of Treatment Future Test Test Name Order Date UPPER GI ENDOSCOPY 12/02/2022 COLONOSCOPY 12/02/2022 UPPER GI ENDOSCOPY 08/29/2023 Insurance Providers Payer Name Payer Address Payer Phone Subscriber Number Group Number Insured Name Patient Relationship to Insured Coverage Start Date Coverage End Date [facility] [address] [place], [place] [id number] [phone] [id number] TIEN LISA Potts Self - patient is the insured Medical (General) History Medical History History ICD Code Denies [place],DM,CVA,Lung disease,renal dise ase Hypercholesterolemia Screening colonoscopy on Feb was negative other than a non-adenomatous polyp GERD and gastric ulcer--uppe r endoscopy in February of 2023 revealed a small hiatal hernia, changes of reflux but without Ramos's esophagus or erosive esophagitis, and two approximately 10 mm gastric ulcers. Biopsies were negative for H. pylori. He was started on omeprazole 40 mg daily at that time. Surgical History Surgery Date(Month/Year)
--- OUTSIDE RECORDS SUMMARY | 2024-07-11 13:10 | XMS_ITS ---
Author Organization [facility] Address [address] [place] [address] Care Team Providers Care Finish Saw Operator Name Role Phone Viraj MCGILL, Gordon Primary Care Provider Jorge Cisneros [phone] Encounters Encounter Location Date Provider Diagnosis [facility] [address] [place] [address] 08/29/2023 Jorge Zamudio Plan Of Treatment No Information Progress Notes * LISA BORDENDOB: [birth year] (48 yo M)Acc No.[id number]:08/29/2023 Patient:?LISA BORDEN :1975???Age:48 Y???Sex:Male Address:[address] [place], [address] * true * Date:? Generated for Shanda casey/Park/eTransmitting on:?07/11/2024 01:10 PM EST
--- OUTSIDE RECORDS SUMMARY | 2024-07-11 13:10 | XMS_ITS ---
Author Organization Gordon Cali MD Address [address] [place] [phone] Care Team Providers Care Maple Syrup Maker Name Role Phone Gordon Cali Primary Care Provider Results Component Value Reference Range Notes Liver Panel Reviewed date:07/04/2024 04:12:23 PM Interpretation: Performing Lab:[facility], [address] [place] [phone] Notes/Report: Bilirubin Total 1.5 0.0-1.0 mg/dL Bilirubin Direct 0.4 0.0-0.5 mg/dL Aspartate Amino Transferase 44 5-37 U/L Alanine Aminotransferase 53 0-40 U/L Total Protein 7.6 6.5-8.0 g/dL Albumin Level 4.3 3.5-5.0 g/dL Alkaline Phosphatase 81 39-117 U/L Lipid Panel Reviewed date:07/04/2024 04:16:49 PM Interpretation: Performing Lab:[facility], [address] [place] [phone] Notes/Report: Triglycerides 171 <150 mg/dL Desirable Triglyceride: [...] Location Date Provider Diagnosis Gordon Cali MD [address] [place] [phone] 07/04/2024 Gordon Cali Mixed hyperlipidemia E78.2 ; Hyperlipidemia, unspecified E78.5 and Possible exposure to STD Z20.2 Assessments Encounter Date Diagnosis (ICD Code) Assessment Notes Treatment Notes Treatment Clinical Notes Section Notes 07/04/2024 Mixed hyperlipidemia (ICD-10 - E78.2) 07/04/2024 Hyperlipidemia, unspecified (ICD-10 - E78.5) 07/04/2024 Possible exposure to STD (ICD-10 - Z20.2) Plan Of Treatment Next Appt Details Provider Name:Gordon alexander, 10/11/2024 07:30:00 AM, [address] [place] [address], [address], [phone], Provider Name:Gordon alexander, 10/17/2024 07:45:00 AM, [address] [place] [address], [address], [phone], Provider Name:Gordon alexander, 04/01/2025 07:15:00 AM, [address] [place] [address], [address], [phone], Provider Name:Gordon alexander, 04/08/2025 09:30:00 AM, [address], [address], [place], [place], [phone], Progress Notes * Fabio BORDENDOB: [birth year] (49 yo M)Acc No.[id number]:07/04/2024 Progress Note Patient:Fabio FAN Provider:?Gordon Cali MD :1975???Age:49 Y???Sex:Male Roberto e:07/04/2024 Address:[address] [place], [place] [phone] Subjective: * Chief Complaints: * ???1. FASTING LIPID AND LIVE R PANEL. * Medical History:? Objective: * Vitals:? Assessment: * Assessment: 1.?Mixed hyperlipidemia - E7 8.2 (Primary)???2.?Hyperlipidemia, unspecified - E78.5???3.?Possible exposure to STD - Z20.2??? Plan: * Treatment: * Procedure Codes:?02174 VENIP UNCT, ROUTINE* * * The named appointment provid er may or may not be the originator of this progress note, and it is not deemed complete until electronically signed by the appointment provider. Sign off status: Pending * Provider:?Gordon Cali MD Date:?0 07/04/2024 Generated for Shanda casey/Park/Kendraitting on:?07/11/2024 01:10 PM EST
--- OUTSIDE RECORDS SUMMARY | 2024-07-11 13:11 | XMS_ITS ---
Author Organization Gordon Cali MD Address [address] [place] [phone] Care Team Providers Care Block Tester Name Role Phone Gordon Cali Primary Care Provider Allergies No Known Allergies Results Component Value Reference Range Notes HIV Ab/Ag Reviewed date:07/11/2024 12:14:19 PM Interpretation: Performing Lab:[facility], [address] [place] [phone] Notes/Report: HIV AB/AG Nonreactive Nonreactive HIV-1 p24 [...] limit of detection of this assay. The [employer] HIV Ag/Ab Combo assay result and supplemental [...] Externally Twice a day 08/18/2016 Not-Takin g Atorvastatin Calcium 10 MG TAKE ONE [...] Location Date Provider Diagnosis Gordon Cali MD [address] [place] [address] [place] [phone] 07/11/2024 Gordon Cali Possible exposure to STD Z20.2 ; Elevated LFTs R79.89 ; Skin lesion L98.9 and Hyperlipidemia, unspecified E78.5 Assessments Encounter Date Diagnosis (ICD Code) Assessment Notes Treatment Notes Treatment Clinical Notes Section Notes 07/11/2024 Possible exposure to STD (ICD-10 - Z20.2) continuing to monitor STD, following possible exposure 07/11/2024 Elevated LFTs (ICD-10 - R79.89) did not change after stopping the statin so will start and recheck 07/11/2024 Skin lesion (ICD-10 - L98.9) is on upper lip may be a cold sore coming. if it doesn't go away in couploe weeks to return 07/11/2024 Hyperlipidemia, unspecified (ICD-10 - E78.5) will restart statin Plan Of Treatment Treatment Notes Assessment Notes Possible exposure to STD continuing to m onitor STD, following possible exposure Elevated LFTs did not change after stopping the statin so will start and recheck Skin lesion is on upper lip may be a cold sore coming. if it doesn't go away in couploe weeks to return Hyperlipidemia, unspecified will restart statin Future Test Test Name Order Date Liver Panel 10/11/2024 Lipid Panel 10/11/2024 Next Appt Details Follow Up: 3 Months, Reason: Provider Name:Gordon alexander, 10/11/2024 07:30:00 AM, [address], [address], [place], [phone], Provider Name:Gordon vernonr, 10/17/2024 07:45:00 AM, [address], [address], [place], [phone], Provider Name:Gordon vernonr, 04/01/2025 07:15:00 AM, [address], [address], [place], [phone], Provider Name:Gordon vernonr, 04/08/2025 09:30:00 AM, [address] [place] [address], [address], [place], [place], [phone], Progress Notes * Fabio BORDENDOB: [birth year] (49 yo M)Acc No.[id number]:07/11/2024 Progress Notes Patient:?Fabio BORDEN Provider:?Gordon Cali MD :1975???Age:49 Y???Sex:Male Roberto e:07/11/2024 Address:[address] [place] [phone] Subjective: * Chief Complaints: * ???1. 3 MO F/U. * HPI: ???Symptom(s):?patient is a 49 yo male here for 3 month? follow up visit. has been doing well with no symptoms. * ROS:?General/Constitutional:?Denies?Chills.?Denies?Fatigue.?Denies?Fever.?Denies?Headache.?ENT:?Patient denies?decreased sense of smell, any loss of taste, sore throat.?Denies?Sore throat.?Respiratory:?Denies?Cough.?Denies?Shortness of breath at rest.?Denies?Shortness of breath with exertion.?Gastrointestinal:?Denies?Diarrhea.?Denies?Nausea.?Peripheral Vascular:?Patient denies?red and blue toes.? * Medical History:?Esophageal reflux: colonoscopy 02/24/23 repeat 5 years andendoscopy in 5 years, Lft's were normal before going on statins. * Medications:?Taking Fish Oil 1200 MG Capsule 1 capsule Orally Twice a day , Taking Ketoconazole 2 % Shampoo 5 ml Externally Twice a day , Taking Omeprazole 20 MG Capsule Delayed Release 1 capsule 30 minutes before morning meal Orally Once a day , Not-Taking/PRN Atorvastatin Calcium 10 MG Tablet TAKE ONE TABLET BY MOUTH EVERY DAY , Not-Taking/PRN Valtrex 500 MG Tablet 1 tablet Orally twice a day , Not- Taking/PRN Hydrocortisone Acetate 2.5 % Cream 1 application to affected area Externally Twice a day , Medication List reviewed and reconciled with the patient * Allergies:?N.K.D.A. Objective: * Vitals:?Ht: 67.5, Wt: 183, B HI:28.24, BP:118/60, Wt-k.01. * ???Past Orders: ???Lab:Liver Panel (Order Da te - 07/04/2024) (Collection Date & Time - 07/04/2024 07:00 AM) ? Value Reference Range ?Bilirubin Total 1.5 H 0.0- 1.0 - mg/dL ?Bilirubin Direct 0.4 0.0 -0.5 - mg/dL ?Aspartate Amino Transferase 44 H 5-37 - U/L ?Alanine Aminotransferase 53 H 0-40 - U/L ?Total Protein 7.6 6.5-8. 0 - g/dL ?Albumin Level 4.3 3.5-5. 0 - g/dL ?Alkaline Phosphatase 81 39-117 - U/L ???Lab:Lipid Panel (Order Da te - 07/04/2024) (Collection Date & Time - 07/04/2024 07:00 AM) ? Value Reference Range ?Triglycerides 171 H <150 - mg/dL ?Cholesterol 250 H <200 - m g/dL ?LDL Cholesterol Calculated 177 H <100 - mg/dL ?HDL Cholesterol 39 L >40 - mg/dL * Examination: ???General Examination: ?GENERAL APPEARANCE:?alert, well hydrated, in no distress.?SKIN:?abnormal with a red 1/2 inch raised lesion? on upper lip.? Assessment: * Assessment: 1.?Possible exposure to STD - Z20.2???2.?Elevated LFTs - R79.89???3.?Skin lesion - L98.9???4.?Hyperlipidemia, unspecified - E78.5??? Plan: * Treatment: 2.?Elevated LFTs? Notes: did not change after stopping the statin so will start and recheck?? 3.?Skin lesion? Notes: is on upper lip may be a cold sore coming. if it doesn't go away in couploe weeks to return?? 4.?Hyperlipidemia, unspecifi ed? Notes: will restart statin?? * Procedure Codes:?11727 VENIP UNCT, ROUTINE* * Follow Up:?3 Months * * The named appointment provid er may or may not be the originator of this progress note, and it is not deemed complete until electronically signed by the appointment provider. Sign off status: Pending * Provider:?Gordon Cali MD Date:?0 07/11/2024 Generated for Shanda casey/Park/Olivier on:?07/11/2024 01:10 PM EST History and Physical Notes * [...]
--- OUTSIDE RECORDS SUMMARY | 2024-07-11 13:11 | XMS_ITS | Clinical Summary ---
Author Organization [facility] Address [address] [place] [address] Care Team Providers Care Sales And Marketing Representative Name Role Phone Unavailable Primary Care Provider [...] 1975 Lipid Screening 1977 Tobacco Screening 1977 Hypertension Screening (#1) 1995 Imm-Hepatitis B (1 of 3 - 19 + 3-dose series) 01/24/1996 CT Colonography 2022 Colonoscopy 2022 Colorectal Cancer Screening 2022 FIT/gFOBT 2022 Fecal DNA 2022 Flexible Sigmoidoscopy 2022 Bvh-BMOQS-01 ( season) 2024 04/28/2021, 09/01/2020, 08/05/2020 Imm-Influenza (#1) 2024 02/09/2021, 0 01/29/2020, 02/26/2019 Alcohol and Drug Screen 05/08/2024 Depression Annual Screen 05/08/2024 Imm-DTaP/Tdap/Td (2 - Td or Tdap) 02/03/2028 018 HIV Screening Completed 08/03/2020 Hepatitis C Screening Completed 08/03/2020 Insurance [employer]
--- OUTSIDE RECORDS SUMMARY | 2024-07-11 13:11 | XMS_ITS ---
Author Organization Gordon Cali MD Address [address] [place] [phone] Care Team Providers Care Parking Lot Signaler Name Role Phone Gordon Cali Primary Care Provider [phone] REASON FOR V[address] Results CT Scan Encounters Encounter Location Date Provider Diagnosis Gordon Cali MD [facility] [address] [place] [phone] 06/11/2024 Gordon Cali Plan Of Treatment Next Appt Details Provider Name:Gordon alexander, 10/11/2024 07:30:00 AM, [address] [place] [address], [address] [place] [address], [phone], Provider Name:Gordon alexander, 10/17/2024 07:45:00 AM, [address] [place] [address], [address], [phone], Provider Name:Gordon alexander, 04/01/2025 07:15:00 AM, [address] [place] [address], [address], [phone], Provider Name:Gordon Edge benjamin, 04/08/2025 09:30:00 AM, [address], [address], [place], [phone], Progress Notes * Fabio BORDENDOB: [birth year] (49 yo M)Acc No.[id number]:06/11/2024 Patient:?Fabio BORDEN :1975???Age:49 Y???Sex:Male Address:[address] [place] [address] [place] [phone] * true * Date:? Generated for Shanda casey/Park/eTransmitting on:?07/11/2024 01:10 PM EST
--- OUTSIDE RECORDS SUMMARY | 2024-07-11 13:11 | XMS_ITS | Clinical Summary ---
Author Organization [place] [address] [address] Address [address] [place] [address] Care Team Providers Care Rigging And Controls Aircraft Mechanic Name Role Phone Damian Cali MD Primary Care Provider [phone] Social History Tobacco Use Types Packs/Day Years [...] topic Insurance CIGNA CIG CIGNA Care Teams Rigging And Controls Aircraft Mechanic Relationship Specialty Start Date End Date Damian Cali MD [address] [place] [phone] PCP - General Internal Medicine 08/06/18
== END 2024-07-11 10:52 | disposition home or self-care (01) ==
LOC: HO.LNP 10:51
PROVIDERS: Visit Provider Internal Medicine
DX: Z20.2 Contact with and (suspected) exposure to infections with a predominantly sexual mode of transmission (principal)
CPT/HCPCS: 87389

== ENCOUNTER 2024-10-11 12:04 | Outpatient (REF) | payer BC, SELFPAY ==
--- OUTSIDE RECORDS SUMMARY | 2024-10-11 12:30 | XMS_ITS ---
Author Organization [facility] Address [address] [place] [phone] Care Team Providers Care Beet Topper Name Role Phone Viraj MCGILL, Gordon Primary Care Provider Jorge Cisneros [phone] REASON FOR VISIT acute gastric ulcer,gerd Problems Problem Type SNOMED Code ICD Code Onset Dates Problem Status W/U Status Risk Notes Problem Gastro-esophagea l reflux disease without esophagitis (039882040) Gastro-esophage al reflux disease without esophagitis (K21.9) Active confirmed Encounters Encounter Location Date Provider Diagnosis [facility] Outpatient [address] [place], [place] [phone] 10/06/2023 Jorge Zamudio Gastro-esophageal reflux disease without [...] * LISA BORDENDOB: [birth year] (49 yo M)Acc No.[id number]:10/06/2023 EGD/MAC Patient:?LISA BORDEN Provider:?Jorge Zamudio MD :1975???Age:48 Y???Sex:Male Roberto e:10/06/2023 Address: [address], [phone] Pcp:Gordon Cali MD Subjective: * Chief Complaints: * ???1. Acute gastric ulcer,ge rd. * Medical History:? Objective: * Vitals:? Assessment: * Assessment: 1.?Gastro-esophageal reflux disease without esophagitis - K21.9 (Primary)???2.?Hiatal hernia - K44.9???3.?Gastric ulcer - K25.9??? Plan: * Treatment: * Procedure Codes:?75428 UPPER GI ENDOSCOPY, BIOPSY * * The named appointment provid er may or may not be the originator of this progress note, and it is not deemed complete until electronically signed by the appointment provider. Sign off status: Pending * Provider:?Jorge Zamudio MD Date:? 024 Generated for Shanda casey/Park/eTransmitting on:?10/11/2024 12:30 PM EDT
[2024-10-11 13:42] LABS: Albumin Level 4.4 g/dL (3.5-5.0); Alkaline Phosphatase 72 U/L (39-117); Aspartate Amino Transferase 51 U/L (5-37); Bilirubin Direct 0.5 mg/dL (0.0-0.5); Bilirubin Total 1.5 mg/dL (0.0-1.0); Cholesterol 149 mg/dL (<200); HDL Cholesterol 41 mg/dL (>40); LDL Cholesterol Calculated 84 mg/dL (<100); Triglycerides 122 mg/dL (<150)
[2024-10-11 14:06] LABS: Alanine Aminotransferase 56 U/L (0-40)
[2024-10-14 13:59] LABS: RPR Rapid Plasma Reagin NON-REACTIVE (NON-REACTIVE)
== END 2024-10-11 12:05 | disposition home or self-care (01) ==
LOC: HO.LNP 12:04
PROVIDERS: Visit Provider Internal Medicine
DX: Z20.2 Contact with and (suspected) exposure to infections with a predominantly sexual mode of transmission (principal); Z13.6 Encounter for screening for cardiovascular disorders
CPT/HCPCS: 80061; 80076; 86592

== ENCOUNTER 2025-01-17 11:05 | Outpatient (REF) | payer BC, SELFPAY ==
--- OUTSIDE RECORDS SUMMARY | 2023-10-06 06:50 | XMS_ITS ---
Author Organization [facility] Address [address] [place] [id number] Care Team Providers Care Railroad Cook Name Role Phone Viraj MCGILL, Gordon Primary Care Provider Jorge Cisneros [phone] REASON FOR VISIT acute gastric ulcer,gerd Problems Problem Type SNOMED Code ICD Code Onset Dates Problem Status W/U Status Risk Notes Problem Gastro-esophagea l reflux disease without esophagitis (884079966) Gastro-esophage al reflux disease without esophagitis (K21.9) Active confirmed Encounters Encounter Location Date Provider Diagnosis [facility] Outpatient [address], [place] [phone] 10/06/2023 Jorge Zamudio Gastro-esophageal reflux disease without [...] Information Progress Notes * LISA BORDENDOB: [birth year] (49 yo M)Acc No.[id number]:10/06/2023 EGD/MAC Patient: Heidy LISA DIXON Provider: Gwendolyn Zamudio MD :1975 A ge:48 Y S ex:Male Date:10/06/2023 Address: [address] [id number] Pcp:Gordon Cali MD Subjective: * Chief Complaints: * 1 . Acute gastric ulcer,gerd. * Medical History: Objective: * Vitals: Assessment: * Assessment: 1. G dana-esophageal reflux disease without esophagitis - K21.9 (Primary) 2 .?Hiatal hernia - K44.9 3 . G astric ulcer - K25.9 Plan: * Treatment: * Procedure Codes: 4 3239 UPPER GI ENDOSCOPY, BIOPSY * * The named appointment provid er may or may not be the originator of this progress note, and it is not deemed complete until electronically signed by the appointment provider. Sign off status: Pending * Provider: Gwendolyn Zamudio MD Date: 0 10/06/2023 Generated for Shanda casey/Park/Kendraitting on: 0 01/17/2025 12:59 PM EDT
--- OUTSIDE RECORDS SUMMARY | 2024-07-04 03:00 | XMS_ITS ---
Author Organization Gordon Cali MD Address [address] [place] [phone] Care Team Providers Care Lock Installer Name Role Phone Gordon Cali Primary Care Provider Results Component Value Reference Range Notes Liver Panel Reviewed date:07/04/2024 04:12:23 PM Interpretation: Performing Lab:[facility], [address] [place] [phone] Notes/Report: Bilirubin Total 1.5 0.0-1.0 mg/dL Bilirubin Direct 0.4 0.0-0.5 mg/dL Aspartate Amino Transferase 44 5-37 U/L Alanine Aminotransferase 53 0-40 U/L Total Protein 7.6 6.5-8.0 g/dL Albumin Level 4.3 3.5-5.0 g/dL Alkaline Phosphatase 81 39-117 U/L Lipid Panel Reviewed date:07/04/2024 04:16:49 PM Interpretation: Performing Lab:[facility], [address] [place] [phone] Notes/Report: Triglycerides 171 <150 mg/dL Desirable Triglyceride: [...] Location Date Provider Diagnosis Gordon Cali MD [address] [place] [phone] 07/04/2024 Gordon Cali Mixed hyperlipidemia E78.2 ; Hyperlipidemia, unspecified E78.5 and Possible exposure to STD Z20.2 Assessments Encounter Date Diagnosis (ICD Code) Assessment Notes Treatment Notes Treatment Clinical Notes Section Notes 07/04/2024 Mixed hyperlipidemia (ICD-10 - E78.2) 07/04/2024 Hyperlipidemia, unspecified (ICD-10 - E78.5) 07/04/2024 Possible exposure to STD (ICD-10 - Z20.2) Plan Of Treatment Next Appt Details Provider Name:Gordon alexander, 04/01/2025 07:15:00 AM, [address] [place] [address], [address], [phone], Provider Name:Gordon alexander, 04/08/2025 09:30:00 AM, [address] [place] [address], [address], [phone], Progress Notes * Fabio BORDENDOB: [birth year] (49 yo M)Acc No.[id number]:07/04/2024 Progress Note Patient: Heidy Fabio DIXON Provider: Nico Cali MD :1975 A ge:49 Y S ex:Male Date:07/04/2024 Address:[address] [place], [place] [phone] Subjective: * Chief Complaints: * 1 . [...] MD Date: 0 07/04/2024 Generated for Shanda casey/Park/Kendraitting on: 0 01/17/2025 01:00 PM EDT
--- OUTSIDE RECORDS SUMMARY | 2024-07-11 05:00 | XMS_ITS ---
Author Organization Gordon Cali MD Address [address] [place] [phone] Care Team Providers Care Rotating Equipment Engineer Name Role Phone Gordon Cali Primary Care Provider [phone] Allergies No Known Allergies Results Component Value Reference Range Notes HIV Ab/Ag Reviewed date:07/11/2024 12:14:19 PM Interpretation: Performing Lab:[facility], [address] [place] [phone] Notes/Report: HIV AB/AG Nonreactive Nonreactive HIV-1 p24 [...] limit of detection of this assay. The [employer] HIV Ag/Ab Combo assay result and supplemental [...] Date Provider Diagnosis Gordon Cali MD [address] [place] [address] [place] [phone] 07/11/2024 Gordon Cali Elevated LFTs R79.89 ; [...] 3 Months, Reason: Provider Name:Gordon Edge ier, 04/01/2025 07:15:00 AM, [address], [address], [place], [phone], Provider Name:Gordon Edge ier, 04/08/2025 09:30:00 AM, [address], [address], [place], [place], [phone], Progress Notes * Fabio BORDENDOB: [birth year] (49 yo M)Acc No.[id number]:07/11/2024 Progress Notes Patient: Fabio LYONS Provider: Nico Cali MD :1975 A ge:49 Y S ex:Male Date:07/11/2024 Address:[address] [place] [id number] Subjective: * Chief Complaints: * 3 MO [...] MD Date: 0 07/11/2024 Generated for Shanda casey/Park/Kendraitting on: 0 01/17/2025 12:59 PM EDT History and Physical Notes * HPI (History [...]
--- OUTSIDE RECORDS SUMMARY | 2024-10-11 03:30 | XMS_ITS ---
Author Organization Gordon Cali MD Address [address] [place] [phone] Care Team Providers Care Corporate Officer Name Role Phone Gordon Cali Primary Care Provider Results Component Value Reference Range Notes Liver Panel Reviewed date:10/11/2024 06:52:21 PM Interpretation: Performing Lab:[facility], [address] [place] [phone] Notes/Report: Bilirubin Total 1.5 0.0-1.0 mg/dL Bilirubin Direct 0.5 0.0-0.5 mg/dL Aspartate Amino Transferase 51 5-37 U/L Alanine Aminotransferase 56 0-40 U/L Total Protein 7.0 6.5-8.0 g/dL Albumin Level 4.4 3.5-5.0 g/dL Alkaline Phosphatase 72 39-117 U/L Lipid Panel Reviewed date:10/11/2024 06:52:30 PM Interpretation: Performing Lab:[facility], [address] [place] [phone] Notes/Report: Triglycerides 122 <150 mg/dL Desirable Triglyceride: [...] Date Provider Diagnosis Gordon Cali MD [address] [place] [address] [place] [phone] 10/11/2024 Gordon Cali Possible exposure to STD Z20.2 Assessments Encounter Date Diagnosis (ICD Code) Assessment Notes Treatment Notes Treatment Clinical Notes Section Notes 10/11/2024 Possible exposure to STD (ICD-10 - Z20.2) Plan Of Treatment Pending Test Test Name Order Date RPR (SYPHILIS TP) RFLX CONFIRMATION 10/2024 Next Appt Details Provider Name:Gordon alexander, 04/01/2025 07:15:00 AM, [address] [place] [address], [address] [place] [address], [phone], Provider Name:Gordon Edge ier, 04/08/2025 09:30:00 AM, [address] [place] [address], Suite [facility], [place], [place], [phone], Progress Notes * Fabio BORDENDOB: [birth year] (49 yo M)Acc No.[id number]:10/11/2024 Progress Note Patient: Fabio LYONS Provider: Nico Cali MD :1975 A ge:49 Y S ex:Male Date:10/11/2024 Address: [id number] Subjective: * Chief Complaints: * 1 . [...] 0 10/11/2024 Generated for Shanda casey/Park/Kendraitting on: 0 01/17/2025 01:00 PM EDT
--- OUTSIDE RECORDS SUMMARY | 2024-10-17 03:45 | XMS_ITS ---
Author Organization Gordon Cali MD Address [address] [place] [phone] Care Team Providers Care Community Case Manager Name Role Phone Gordon Cali Primary Care [...] kg/m2 10/17/2024 weight is down 4 pounds [facility] 07-11-24 Encounters Encounter Location Date Provider Diagnosis Gordon Cali MD [address] [place] [address] [place] [phone] 10/17/2024 Gordon Cali Hyperlipidemia, unspecified E78.5 and [...] to monitor Next Appt Details Provider Name:Gordon alexander, 04/01/2025 07:15:00 AM, [address] [place] [address], Suite [facility], [place], [place], [phone], Provider Name:Gordon alexander, 04/08/2025 09:30:00 AM, [address] [place] [address], [place] [address], [place], [place], [phone], Progress Notes * Fabio BORDENDOB: [birth year] (49 yo M)Acc No.[id number]:10/17/2024 Progress Notes Patient: Heidy Fabio DIXON Provider: Nico Cali MD :1975 A ge:49 Y S ex:Male Date:10/17/2024 Address:[address] [place] [address] [id number] Subjective: * Chief Complaints: * 3 MO [...] true * Provider: Nico Cali MD Date: 10/17/2024 Generated for Shanda casey/Park/eTransmitting on: 01/17/2025 01:01 PM EDT History and Physical Notes * [...]
--- OUTSIDE RECORDS SUMMARY | 2025-01-17 04:00 | XMS_ITS ---
Author Organization Gordon Cali MD Address [address] [place] [phone] Care Team Providers Care Car Mechanic Helper Name Role Phone Gordon Cali Primary Care Provider Results Component Value Reference Range Notes Liver Panel Reviewed date:01/17/2025 12:34:55 PM Interpretation: Performing Lab:[facility], [address] [place] [phone] Notes/Report: Bilirubin Total 1.7 0.0-1.0 mg/dL Bilirubin Direct 0.4 0.0-0.5 mg/dL Aspartate Amino Transferase 44 5-37 U/L Alanine Aminotransferase 48 0-40 U/L Total Protein 6.9 6.5-8.0 g/dL Albumin Level 4.4 3.5-5.0 g/dL Alkaline Phosphatase 76 39-117 U/L REASON FOR VISIT liver panel Encounters Encounter Location Date Provider Diagnosis Gordon Cali MD [address] [place] [phone] 01/17/2025 Gordon Cali Elevated LFTs R79.89 Assessments Encounter Date Diagnosis (ICD Code) Assessment Notes Treatment Notes Treatment Clinical Notes Section Notes 01/17/2025 Elevated LFTs (ICD-10 - R79.89) Plan Of Treatment Next Appt Details Provider Name:Gordon Edge ier, 04/01/2025 07:15:00 AM, [address], [address], [place], [place], [phone], Provider Name:Gordon Edge ier, 04/08/2025 09:30:00 AM, [address], [address], [place], [place], [phone], Progress Notes * Fabio BORDENDOB: [birth year] (49 yo M)Acc No.[id number]:01/17/2025 Progress Note Patient: Faibo LYONS Provider: Nico Cali MD :1975 A ge:49 Y S ex:Male Date:01/17/2025 Address:[address] [place] [phone] Subjective: * Chief Complaints: * 1 . [...] Pending * Provider: Nico Cali MD Date: 01/17/2025 Generated for Shanda casey/Park/Kendraitting on: 01/17/2025 01:00 PM EDT
[2025-01-17 12:14] LABS: Alanine Aminotransferase 48 U/L (0-40); Albumin Level 4.4 g/dL (3.5-5.0); Alkaline Phosphatase 76 U/L (39-117); Aspartate Amino Transferase 44 U/L (5-37); Total Protein 6.9 g/dL (6.5-8.0)
--- OUTSIDE RECORDS SUMMARY | 2025-01-17 13:00 | XMS_ITS | Clinical Summary ---
Author Organization [facility] Address [address] [facility] ([place], [place]) [address] [place] [phone] Phone Care Team Providers Care Boom Conveyor Operator Name Role Phone Godron Cali MD Primary Care Provider Allergies No known active allergies Medications DOCOSAHEXANOIC ACID/EPA (FISH OIL ORAL) Take by mouth. Active LORATADINE (CLARITIN ORAL) Take by mouth. Active fluticasone propionate (FLONASE) 50 mcg/actuation nasal spray 1 spray by Nasal route daily. Active Family History Medical History Relation Comments Hearing loss Neg Hx Social History Tobacco Use Types Packs/Day Years Used Date Smoking Tobacco: Never Alcohol Use Standard Drinks/Week Comments Yes 0 (1 standard drink = 0.6 oz pur e alcohol) Education Answer Date Recorded Are you interested in more education? Not on ricardo e 09/02/2022 Are you concerned about learning? Not on file 09/02/2022 No 09/02/2022 No 09/02/2022 Digital Access Answer Date Recorded No 09/27/2022 No 09/27/2022 No 09/27/2022 Reliable internet access at home? Not on file 09/27/2022 Device with a working camera? Not on file Sex and Gender Information Value Date Recorded Sex Assigned at Male 07/31/2020 9:08 PM EDT Legal Sex Male 11:39 AM EDT Gender Identity Male 07/31/2020 9:08 PM EDT Sexual Orientation Straight 07/31/2020 9: 08 PM EDT Plan of Treatment Health Maintenance Due Date Last Done Comments LIPID PANEL 1975 DEPRESSION SCREENING 1989 COLOGUARD 2022 COLONOSCOPY 2022 COLORECTAL CANCER SCREENING 2022 FIT TEST 2022 FOBT 2022 SIGMOIDOSCOPY 2022 VIRTUAL COLONOSCOPY 2022 COVID-19 VACCINE (2 - 2023-2 5 season) 2024 08/05/2020 INFLUENZA VACCINE (#1) 2024 0, 02/26/2019 Adult Td,Tdap Booster 02/03/2028 02/02/2018 SMOKING STATUS SCREENING (On ce After 26 Yrs) Completed 08/25/2015 HEPATITIS C SCREENING Completed 08/03/2020 HIV ONE-TIME SCREENING (18-6 5 YEARS) Completed 08/03/2020 HEPATITIS A VACCINES Aged Out No long er eligible based on patient's age to complete this topic HIB VACCINES Aged Out No longer eligi ble based on patient's age to complete this topic MENINGOCOCCAL VACCINES (ACWY) Aged Out No longer eligible based on patient's age to complete this topic MENINGOCOCCAL VACCINES (B) Aged Out N o longer eligible based on patient's age to complete this topic PNEUMOCOCCAL VACCINES (0-49 years) Aged Out No longer eligible b ased on patient's age to complete this topic Medical Devices Not on file Procedures Procedure Name Priority Date/Time Associated Diagnosis Comments HEPATITIS C ANTIBODY, QUALITATIVE Routine 08/03/2020 9:51 AM EDT Fertility testing from Last 3 Months or Most Recently Relevant to Health Maintenance Results * Hepatitis C antibody, qualitative (08/03/2020 9:51 AM EDT) HCV ANTIBODY Negative Negative [facility] Comment:Antibodies to HCV no t detected. Does not exclude the possibility of exposure to HCV. 08/03/2020 9:51 AM EDT 08/03/2020 3:19 PM EDT us Ivon Kelly MD LAB BLOOD ORDERABLES Final Result [facility] [address] [place] [address] from Last 3 Months or Most Recently Relevant to Health Maintenance Insurance CIGNA PPO CIGNA PPO CIGNA PPO Member Subscriber Plan / Payer (Ef fective 2016-Present) Name:aFbio Borden Relation to Subscriber:Self Name:FABIO BORDEN Payer ID:[id number] (NAIC) Type:PPO Address: [id number] [place] [address] [place] [id number] CIGNA PPO CIGNA PPO CIGNA PPO CIGNA PPO CIGGALI PPO CIGNA PPO Care Teams Boom Conveyor Operator Relationship Specialty Start Date End Date Gordon Cali MD [address] [place] [address] [place] [address] PCP - General Internal Medicine 08/17/15 Additional Source Comments The information contained in this document represents components of the legal health record. It is not the complete legal health record.[facility]
--- OUTSIDE RECORDS SUMMARY | 2025-01-17 13:00 | XMS_ITS | Clinical Summary ---
Author Organization [facility] Address [address] [place] [address] Care Team Providers Care Lithoduplicator Operator Name Role Phone Unavailable Primary Care Provider Unavailabl e Source Comments PLEASE NOTE, if this patient is a minor, it may be UNLAWFUL to discuss sensitive information that is contained in these records (such as FAMILY PLANNING, MENTAL HEALTH or SUBSTANCE ABUSE) with the minor patient's parent or other person without the patient's specific authorization.[facility] Immunizations Immunization Administration Dates Next Due Moderna COVID-19 Vaccine, [...] Health Maintenance Due Date Last Done Comments Anxiety Screening 1975 Diabetes Screening 1975 Lipid Screening 1975 Tobacco Screening 1975 Hypertension Screening (#1) 1995 Imm-Hepatitis B (1 of 3 - 19 + 3-dose series) 01/24/1996 CT Colonography 2022 Colonoscopy 2022 Colorectal Cancer Screening 2022 FIT/gFOBT 2022 Fecal DNA 2022 Flexible Sigmoidoscopy 2022 Alcohol and Drug Screen 05/08/2024 Depression Annual Screen 05/08/2024 Tpt-[id number] ( season) 2025 04/28/2021, 09/01/2020, 08/05/2020 Imm-Influenza (#1) 2025 02/09/2021, 0 01/29/2020, 02/26/2019 Imm-DTaP/Tdap/Td (2 - Td or Tdap) 02/03/2028 018 HIV Screening Completed 08/03/2020 Hepatitis C Screening Completed 08/03/2020 Insurance [facility]
--- OUTSIDE RECORDS SUMMARY | 2025-01-17 13:00 | XMS_ITS | Encounter Summary ---
Author Organization [facility] Address [address] [address] Phone Care Team Providers Care Military Aircraft Designer Name Role Phone Gordon Cali MD Primary Care Provider Encounter Details Date Type Department Care Team (Latest Contact Info) Description 08/24/2015 Transcribe Orders [facility] Otology [address] [address] Fransisco Barr MD [address] [place] [address] [place] [address] [email or web address] SNHL (sensorineural hearing loss) (Primary Dx) Social History Tobacco Use Types Packs/Day Years Used Date Smoking Tobacco: Never Assessed Sex and Gender Information Value Date Recorded Sex Assigned at Male 07/31/2020 9:08 PM EDT Legal Sex Male 11:39 AM EDT Gender Identity Male 07/31/2020 9:08 PM EDT Sexual Orientation Straight 07/31/2020 9: 08 PM EDT documented as of this encounter Plan of Treatment Not on file documented as of this encounter Visit Diagnoses Diagnosis SNHL (sensorineural hearing loss)- Primary Unspecified sensorineural hearing loss documented in this encounter Care Teams Military Aircraft Designer Relationship Specialty Start Date End Date Gordon Cali MD [address] [place] [address] [place] [address] PCP - General Internal Medicine 08/17/15 documented as of this encounter Additional Source Comments The information contained in this document represents components of the legal health record. It is not the complete legal health record.[facility]
--- OUTSIDE RECORDS SUMMARY | 2025-01-17 13:00 | XMS_ITS | Clinical Summary ---
Author Organization [facility] Address [address] [place] [address] Care Team Providers Care Geosciences Professor Name Role Phone Damian Cali MD Primary Care Provider [phone] Social History Tobacco Use Types Packs/Day Years [...] cancer screening, Colonoscopy 2022 Diabetes screening 2022 Covid-19 vaccine series (2023- season) 2025 Influenza vaccine 01/06/2025 RSV Immunization (1 - 1-dose 75+ series) 01/24/2052 Meningococcal B Vaccine Aged Out No l onger eligible based on patient's age to complete this topic Meningococcal Vaccine Aged Out No eduardo raf eligible based on patient's age to complete this topic Pneumococcal Vaccine (2 - 49 years) Aged Out No longer eligible based on patient's age to complete this topic Insurance CIG[employer] Member Subscriber Plan / Payer (Ef fective 2016-Present) Name:Fabio Miller Relation to Subscriber:Self Name:Fabio Miller Payer ID:[id number] (NAIC) Type:Not on file Address: [place] [phone] [facility] CIG CIGNA Care Teams Geosciences Professor Relationship Specialty Start Date End Date Damian Cali MD [address] [place] [phone] PCP - General Internal Medicine 08/06/18
--- OUTSIDE RECORDS SUMMARY | 2025-01-17 13:01 | XMS_ITS | Patient Health Record ---
Author Organization Gordon Cali MD Address [address] [place] [phone] Care Team Providers Care Survey Questionnaire Designer Name Role Phone Gordon Cali Primary Care Provider Allergies No Known Allergies Results Component Value Reference Range Notes Complete Blood Count Auto Di ff Reviewed date:03/26/2024 08:02:28 PM Interpretation: Performing Lab:[facility], [address] [place] [phone] Notes/Report: White Blood Count 5.8 4.8-10.8 X10*3/uL Red Blood Count 4.72 4.60-5.80 X10*6/uL Hemoglobin 15.4 14.0-18.0 g/dl Hematocrit 44.4 42.0-52.0 % Mean Corpuscular Volume 94.1 80.0-98.0 fL Mean Corpuscular Hemoglobin 32.6 27.0-33.0 pg Mean Corpuscular HGB Conc 34.7 31.0-36.0 g/dl Red Cell Distribution Width 12.5 11.0-16.0 % Platelet Count 195 160-400 X10*3/uL Mean Platelet Volume 10.7 9.4-12.4 fL Neutrophils Percent Auto 59.9 45-73 % Imm Gran Pct Auto 0.2 0.0-0.4 % Lymphocytes Percent Auto 29.0 20-40 % Monocytes Percent Auto 9.8 2-11 % Eosinophils Percent Auto 0.9 0-4 % Basophils Percent Auto 0.2 0-2 % NRBC Pct Auto 0.0 0.0-0.2 /100WBC Neutrophils Absolute Auto 3.5 2.0-8.3 x10*3/u L Imm Gran Abs Auto 0.01 0.00-0.03 X10*3/uL Lymphocytes Absolute Auto 1.7 1.2-4.9 X10*3/u L Monocytes Absolute Auto 0.6 0.1-1.2 X10*3/uL Eosinophils Absolute Auto 0.1 0.0-0.4 X10*3/u L Basophils Absolute Auto 0.0 0.0-0.2 X10*3/uL NRBC Abs Auto 0.000 0.0-0.012 X10*3/uL Comprehensive [facility]. Panel Fa st Reviewed date:03/26/2024 08:18:18 PM Interpretation: Performing Lab:[facility], [address] [place] [phone] Notes/Report: Sodium 141 135-145 mmol/L Potassium 3.6 3.3-5.1 mmol/L Chloride 107 96-108 mmol/L Carbon Dioxide 29 22-29 mmol/L Anion Gap 9 12-20 Blood Urea Nitrogen 10 9-16 mg/dL Creatinine 1.09 0.5-1.4 mg/dL Estimated Glomerular Filt Rate > 60 Chronic Kidney Disease: Estimated GFR < 60 mL/min/1.73m2 Severe Kidney Disease: Estimated GFR < 15 mL/min/1.73m2 Glucose Fasting 103 60-99 mg/dL A fasting glucose from 100-125 mg/dl is considered impaired (pre-diabetes). Calcium 9.1 8.4-10.2 mg/dL Bilirubin Total 1.4 0.0-1.0 mg/dL Aspartate Amino Transferase 45 5-37 U/L Alanine Aminotransferase 63 0-40 U/L Total Protein 7.0 6.5-8.0 g/dL Albumin Level 4.3 3.5-5.0 g/dL Alkaline Phosphatase 77 39-117 U/L Lipid Panel Reviewed date:03/26/2024 08:02:36 PM Interpretation: Performing Lab:[address] [phone] Notes/Report: Triglycerides 111 <150 mg/dL Desirable Triglyceride: less than 150 mg/dL Borderline High Triglyceride 150-199 mg/dL High Triglyceride: 200-499 mg/dL Very High Triglyceride: greater than or equal to 5OO mg/dL Cholesterol 155 <200 mg/dL Desirable Cholesterol: less than 200 mg/dL Borderline High Cholesterol: 200-239 mg/dL High Cholesterol: greater than 239 mg/dL LDL Cholesterol Calculated 90 <100 mg/dL Desirable LDL: less than 100 mg/dL Near Optimal/Above Optimal LDL: 110-129 mg/dL Borderline High LDL: 130-159 mg/dL High LDL: 160-189 mg/dL Very High LDL: greater than or equal to 190 mg/dL HDL Cholesterol 43 >40 mg/dL Desirable HDL: greater than 40 mg/dL Note: This HDL assay may give artificially low results in patients with liver disease. PSA,Total (Free>4and<10) Reviewed date:03/26/2024 08:02:13 PM Interpretation: Performing Lab:[address] [phone] Notes/Report: PSA,Total (Free>4and<10) 0.96 0.00-4.00 ng/mL A Free PSA was not performed: The percentage of Free PSA can be used to enhance the differentiation of prostate cancer from benign prostatic disease in subjects whose PSA levels are between 4.0 and 10.0 ng/mL. For subjects whose PSA levels are below 4.0 or above 10.0 ng/mL, the risk of prostate cancer is determined on the basis of the PSA alone. Therefore the % Free PSA is recommended only for those subjects whose PSA levels are between 4.0 and 10.0 ng/mL. PSA methodology: Velez Alinity i Chemiluminescent Microparticle Immunoassay (CMIA) UA ClnCatch+Micro w/rflx Cul t Reviewed date:03/26/2024 08:02:53 PM Interpretation: Performing Lab:[address] [place] [address] Notes/Report: [id number] Urine, Clean Catch Color Urine Yellow Appearance Urine Clear PH 6.0 5.0-9.0 Glucose Urine UA Negative Negative mg/dL Urine Blood Negative Negative Specific [place] - Urine 1.015 1.005-1.025 Urine Protein Negative Neg-Trace mg/dL Urine Ketones Negative Negative mg/dL Nitrite Urine Negative Negative Leukocyte Esterase Urine Negative Negative RBC Urine 0-2 0-2 /HPF WBC Urine 0-5 0-5 /HPF Squamous Epithelial Cell Urine 0-2 0-2 /HPF Bacteria Urine None Seen None Seen Hyaline Casts Urine 0-2 0-2 /LPF Liver Panel Reviewed date:07/04/2024 04:12:23 PM Interpretation: Performing Lab:[address] [phone] Notes/Report: Bilirubin Total 1.5 0.0-1.0 mg/dL Bilirubin Direct 0.4 0.0-0.5 mg/dL Aspartate Amino Transferase 44 5-37 U/L Alanine Aminotransferase 53 0-40 U/L Total Protein 7.6 6.5-8.0 g/dL Albumin Level 4.3 3.5-5.0 g/dL Alkaline Phosphatase 81 39-117 U/L Lipid Panel Reviewed date:07/04/2024 04:16:49 PM Interpretation: Performing Lab:[address] [phone] Notes/Report: Triglycerides 171 <150 mg/dL Desirable Triglyceride: [...] low results in patients with liver disease. Liver Panel Reviewed date:10/11/2024 06:52:21 PM Interpretation: Performing Lab:[facility], [address] [place] [phone] Notes/Report: Bilirubin Total 1.5 0.0-1.0 mg/dL Bilirubin Direct 0.5 0.0-0.5 mg/dL Aspartate Amino Transferase 51 5-37 U/L Alanine Aminotransferase 56 0-40 U/L Total Protein 7.0 6.5-8.0 g/dL Albumin Level 4.4 3.5-5.0 g/dL Alkaline Phosphatase 72 39-117 U/L Lipid Panel Reviewed date:10/11/2024 06:52:30 PM Interpretation: Performing Lab:[facility], [address] [place] [phone] Notes/Report: Triglycerides 122 <150 mg/dL Desirable Triglyceride: [...] low results in patients with liver disease. Liver Panel Reviewed date:01/17/2025 12:34:55 PM Interpretation: Performing Lab:[facility], [address] [place] [phone] Notes/Report: Bilirubin Total 1.7 0.0-1.0 mg/dL Bilirubin Direct 0.4 0.0-0.5 mg/dL Aspartate Amino Transferase 44 5-37 U/L Alanine Aminotransferase 48 0-40 U/L Total Protein 6.9 6.5-8.0 g/dL Albumin Level 4.4 3.5-5.0 g/dL Alkaline Phosphatase 76 39-117 U/L Occult Blood, Stool, Guaiac Reviewed date:04/02/2024 09:16:26 AM Interpretation:Negative Performing Lab: Notes/Report: Negative Occult Blood, Stool, Guaiac Neg Blood Urea Nitrogen Reviewed date:05/17/2024 12:38:09 PM Interpretation: Performing Lab:[facility], [address] [place] [phone] Notes/Report: Blood Urea Nitrogen 12 9-16 mg/dL Creatinine Reviewed date:05/17/2024 12:38:29 PM Interpretation: Performing Lab:[facility], [address] [place] [phone] Notes/Report: Creatinine 1.07 0.5-1.4 mg/dL Estimated Glomerular Filt Rate > 60 Chronic Kidney Disease: Estimated GFR < 60 mL/min/1.73m2 Severe Kidney Disease: Estimated GFR < 15 mL/min/1.73m2 HIV Ab/Ag Reviewed date:05/17/2024 12:38:22 PM Interpretation: Performing Lab:[facility], [address] [place] [phone] Notes/Report: HIV AB/AG Nonreactive Nonreactive HIV-1 p24 [...] limit of detection of this assay. The Cardiome PharmaniComfy HIV Ag/Ab Combo assay result and supplemental assay results should be interpreted in conjunction with the patient's clinical presentation, history and other laboratory results. If the results are inconsistent with clinical evidence, additional testing is suggested to confirm the result. HIV Ab/Ag Reviewed date:07/11/2024 12:14:19 PM Interpretation: Performing Lab:[facility], [address] [place] [phone] Notes/Report: HIV AB/AG Nonreactive Nonreactive HIV-1 p24 [...] limit of detection of this assay. The Cardiome Pharmanity HIV Ag/Ab Combo assay result and supplemental assay results should be interpreted in conjunction with the patient's clinical presentation, history and other laboratory results. If the results are inconsistent with clinical evidence, additional testing is suggested to confirm the result. CT NG by PCR Reviewed date:05/17/2024 12:40:47 PM Interpretation: Performing Lab:[facility], [address] [place] [phone] Notes/Report: Urine CT PCR NOT DETECTED Not Detect. A not detected test result does not exclude the possibility of infection because test results can be affected by improper specimen collection, concurrent antibiotic therapy, or the number of organisms in the specimen which may be below the sensitivity of the test. As with many diagnostic tests, results from the Xpert CT/NG assay should be interpreted in conjunction with other laboratory and clinical data available to the clinician. Xpert CT/NG performance has not been evaluated in patients less than 14 years of age. The assay should not be used for the evaluation of suspected sexual abuse or for other medico-legal indications. Additional testing is recommended in any circumstance when false positive or false negative results could lead to adverse medical, social or psychological consequences. NG PCR NOT DETECTED Not Detect. A not detected test result does not exclude the possibility of infection because test results can be affected by improper specimen collection, concurrent antibiotic therapy, or the number of organisms in the specimen which may be below the sensitivity of the test. As with many diagnostic tests, results from the Xpert CT/NG assay should be interpreted in conjunction with other laboratory and clinical data available to the clinician. Xpert CT/NG performance has not been evaluated in patients less than 14 years of age. The assay should not be used for the evaluation of suspected sexual abuse or for other medico-legal indications. Additional testing is recommended in any circumstance when false positive or false negative results could lead to adverse medical, social or psychological consequences. Shayan Stewart Reviewed date:07/04/2024 04:12:02 PM Interpretation: Performing Lab:[facility], [address] [place] [phone] Notes/Report: Hold Gold See Note Specimen held untested for 24 hours; Call to request Chemistry testing. Hold Green Gel Reviewed date:07/11/2024 12:24:01 PM Interpretation: Performing Lab:[facility], [address] [place] [phone] Notes/Report: Hold Green Gel See Note Specimen held untested for 24 hours; Call to request Chemistry testing. RPR Monitor reflex titer Reviewed date:10/15/2024 12:14:48 PM Interpretation: Performing Lab:[facility], [address] [place] [phone] Notes/Report: RPR Rapid Plasma Reagin NON-REACTIVE NON-REACTIVE THIS TEST WAS PERFORMED AT: [facility] [address] [place] [phone] NEO CATHERINE MD Rapid Plasma Reagin Ab Titer TNP Reason For Referral No Information Medications Medication [...] ml Externally Twic e a day Active Immunizations Vaccine Route Administration Date Status Comme nts TDaP IM Intramuscular 02/03/2018 Administered pt was given the vaccine at [facility] in [place]. Tetanus Unknown 02/02/2018 Administered Fluarix Quadrivalent Unknown 02/26/2019 Administered [facility] Fluarix Quadrivalent Unknown 01/29/2020 Administered [facility] Covid Vaccine Unknown 08/05/2020 Administered Moderna Covid Vaccine Unknown 09/01/2020 Administered Moderna Fluarix Quadrivalent Unknown 02/09/2021 Administered [facility] Fluarix Quadrivalent Unknown 02/14/2022 Administered Fluarix Quadrivalent - 150 IM Intramuscular 02/23/2024 Administered Flu Vaccine Unknown 07/20/2014 Refused Flu Vaccine Unknown 07/13/2015 Refused Social History Tobacco Use: Social History Observation [...] Never (0 point) Points 1 Interpretation Negative Problems Problem Type SNOMED Code ICD Code Onset Dates Problem Status W/U Status Risk Notes Problem 229010702 Mixed hyperlipid emia (E78.2) Active confirmed Problem 74392784 Hyperlipidemia, unspecified (E78.5) Active confirmed Problem 107152937 Elevated LFTs (R79.89) Active confirmed Problem 922192709 Gastroesophageal reflux disease without esophagitis (K21.9) Active confirmed Problem 975513049 Low HDL (under 4 0) (E78.6) Active confirmed Problem 63872652 Seborrhea (L21.9) Active confirmed Problem 986868754 Elevated triglycerides with high cholesterol (E78.2) Active confirmed Problem 47451405 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) Active confirmed Problem 40297390 ALAN (obstructive sleep apnea) (G47.33) Active confirmed Problem 851176999 Genital warts (A63.0) Active confirmed Vital Signs Blood pressure diastolic 66 mm Hg 10/17/2024 neva ght is down 4 pounds since 07-11-24 Height 67.5 in 10/17/2024 weight is down 4 pounds since 07-11-24 Blood pressure systolic 104 mm Hg 10/17/2024 weig ht is down 4 pounds since 07-11-24 Weight 179 lbs 10/17/2024 weight is down 4 pounds since 07-11-24 BMI 27.62 kg/m2 10/17/2024 weight is down 4 pounds since 07-11-24 Encounters Encounter Location Date Provider Diagnosis Gordon Cali MD [address] [place] [address] Drive [address] [place] [id number] 03/26/2024 Gordon Cali Blood tests for rout ine general physical examination Z00.00 ; Hyperlipidemia, unspecified E78.5 and Elevated LFTs R79.89 Gordon Cali MD [address] [place] [id number] 07/04/2024 Gordon Cali Mixed hyperlipidemia E78.2 ; Hyperlipidemia, unspecified E78.5 and Possible exposure to STD Z20.2 Gordon Cali MD [address] [place] [id number] 10/11/2024 Gordon Cali Possible exposure to STD Z20.2 Gordon Cali MD [address] [place] [id number] 01/17/2025 Gordon Cali Elevated LFTs R79.89 Gordon Cali MD [address] [place] [id number] 02/23/2024 Gordon Cali Encounter for immunization Z23 Gordon Cali MD [address] [place] [id number] 04/02/2024 Gordon Cali Hyperlipidemia, unspecified E78.5 ; Annual physical exam Z00.00 ; Elevated LFTs R79.89 ; Gastroesophageal reflux disease without esophagitis K21.9 ; Colon cancer screening Z12.11 and Depression screening Z13.31 Gordon Cali MD [address] [place] [id number] 05/17/2024 Gordon Cali Right flank pain R10 .9 ; Possible exposure to STD Z20.2 and Pre-procedural laboratory examination Z01.812 Gordon Cali MD [address] [place] [id number] 07/11/2024 Gordon Cali Elevated LFTs R79.89 ; Skin lesion L98.9 ; Hyperlipidemia, unspecified E78.5 and Possible exposure to STD Z20.2 Gordon Cali MD [address] [place] [id number] 10/17/2024 Gordon Cali Hyperlipidemia, unspecified E78.5 and Elevated LFTs R79.89 Gordon Cali MD [address] [place] [id number] 05/20/2024 Gordon Cali MD [address] [place] [id number] 06/11/2024 Gordon Cali Assessments Encounter Date Diagnosis (ICD Code) Assessment Notes Treatment Notes Treatment Clinical Notes Section Notes 03/26/2024 Blood tests for routine general physical examination (ICD-10 - Z00.00) 03/26/2024 Hyperlipidemia, unspecified (ICD-10 - E78.5) 07/04/2024 Mixed hyperlipidemia (ICD-10 - E78.2) 10/11/2024 Possible exposure to STD (ICD-10 - Z20.2) 01/17/2025 Elevated LFTs (ICD-10 - R79.89) 02/23/2024 Encounter for immunization (ICD-10 - Z23) 04/02/2024 Hyperlipidemia, unspecified (ICD-10 - E78.5) will try stopping meds and recheck in 3 months 04/02/2024 Annual physical exam (ICD-10 - Z00.00) labs reviewed and discussed with patient 05/17/2024 Right flank pain (ICD-10 - R10.9) pending diagnostic testing, faxed order to [facility] 05/17/2024 Possible exposure to STD (ICD-10 - Z20.2) pending diagnostic testing 07/11/2024 Elevated LFTs (ICD-10 - R79.89) did not change after stopping the statin so will start and recheck 07/11/2024 Skin lesion (ICD-10 - L98.9) is on upper lip may be a cold sore coming. if it doesn't go away in couploe weeks to return 10/17/2024 Hyperlipidemia, unspecified (ICD-10 - E78.5) will continue on the meds 03/26/2024 Elevated LFTs (ICD-10 - R79.89) 07/04/2024 Hyperlipidemia, unspecified (ICD-10 - E78.5) 04/02/2024 Elevated LFTs (ICD-10 - R79.89) will try stopping the statin and repeat left in 3 months 05/17/2024 Pre-procedural laboratory examination (ICD-10 - Z01.812) 07/11/2024 Hyperlipidemia, unspecified (ICD-10 - E78.5) will restart statin 10/17/2024 Elevated LFTs (ICD-10 - R79.89) DIid not go to normal off the meds. is most likely the fatty liver, will continue to monitor 07/04/2024 Possible exposure to STD (ICD-10 - Z20.2) 04/02/2024 Gastroesophageal reflux disease without esophagitis (ICD-10 - K21.9) stable, will contiue current regiment 07/11/2024 Possible exposure to STD (ICD-10 - Z20.2) continuing to monitor STD, following possible exposure 04/02/2024 Colon cancer screening (ICD-10 - Z12.11) guaiac negative 04/02/2024 Depression screening (ICD-10 - Z13.31) negative screen Plan Of Treatment Pending Test Test Name Order Date Electrocardiogram (EKG) 09/13/2018 CT ABD & PELVIS WITH CONTRAST 05/17/2024 RPR (SYPHILIS TP) RFLX CONFIRMATION 10/2024 Next Appt Details Provider Name:Gordon Edge ier, 04/01/2025 07:15:00 AM, [address] [place] [address], [address] [place] [address], [phone], Provider Name:Gordon Edge ier, 04/08/2025 09:30:00 AM, [address] [place] [address], [address], [place], [place], [phone], Insurance Providers Payer Name Payer Address Payer Phone Subscriber Number Group Number Insured Name Patient Relationship to Insured Coverage Start Date Coverage End Date [employer] [address] [place], [place] [id number] Fabio Small i Self - patient is the insured Medical (General) History Medical History History ICD Code esophageal reflux: colonosco py 02/24/23 repeat 5 years andendoscopy in 5 years lft's were normal before going on statin s
--- OUTSIDE RECORDS SUMMARY | 2025-01-17 13:01 | XMS_ITS | Patient Health Record ---
Author Organization [facility] Address [address] [place] [phone] Care Team Providers Care Special Systems Technician Name Role Phone Gordon Cali MD Primary Care Provider Jorge Cisneros Unavailable [phone] Allergies No Known Allergies Reason For Referral No Information Medications Medication [...] Problem Status W/U Status Risk Notes Problem 537481550 Colon cancer screening (Z12.11) Active confirmed Problem Gastro-esophageal reflux disease without esophagitis (085723919) Gastro-esophageal reflux disease without esophagitis (K21.9) Active confirmed Problem Duodenitis (83751547) Duodenitis (K29.80) Active confirmed Problem 790401964 Family history o f colon cancer (Z80.0) Active confirmed Problem Acute gastric ulcer (76221491) Acute gastric ulcer (K25.3) Active confirmed Problem Gastritis (6380691) Gastritis (K29.70) Active c onfirmed Problem Gastric ulcer (913297824) Gastric ulcer (K25.9) Active confirmed Problem 741985181 Family history o f esophageal cancer (Z80.0) Active confirmed Problem 275691601 Gastroesophageal reflux disease, unspecified whether esophagitis present (K21.9) Active confirmed Problem Gastroesophageal reflux disease (disorder) (359536350) Chronic GERD (K21.9) Active confirmed Plan Of Treatment Future Test Test Name Order Date UPPER GI ENDOSCOPY 12/02/2022 COLONOSCOPY 12/02/2022 UPPER GI ENDOSCOPY 08/29/2023 Insurance Providers Payer Name Payer Address Payer Phone Subscriber Number Group Number Insured Name Patient Relationship to Insured Coverage Start Date Coverage End Date [facility] [address] [place], [place] [id number] LISA BELCHER Self - patient is the insured Medical (General) History Medical History History ICD Code Denies AK,DM,CVA,Lung disease,renal dise ase Hypercholesterolemia Screening colonoscopy on [...]
== END 2025-01-17 11:06 | disposition home or self-care (01) ==
LOC: HO.LNP 11:05
PROVIDERS: Visit Provider Internal Medicine
DX: R79.89 Other specified abnormal findings of blood chemistry (principal)
CPT/HCPCS: 80076

== ENCOUNTER 2025-04-01 10:50 | Outpatient (REF) | payer BC, SELFPAY ==
--- OUTSIDE RECORDS SUMMARY | 2023-10-06 05:50 | XMS_ITS ---
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 Role Phone Viraj MCGILL, Gordon Primary Care Provider Jorge Cisneros [phone] REASON FOR VISIT acute gastric ulcer,gerd Problems Problem Type SNOMED Code ICD Code Onset Dates Problem Status W/U Status Risk Notes Problem Gastro-esophagea l reflux disease without esophagitis ([id number]) Gastro-esophage al reflux disease without esophagitis (K21.9) Active confirmed Encounters Encounter Location Date Provider Diagnosis [facility] Outpatient [address], [place] [id number] 10/06/2023 Jorge Zamudio Gastro-esophageal reflux disease without esophagitis K21.9 ; Hiatal hernia K44.9 and Gastric ulcer K25.9 Assessments Encounter Date Diagnosis (ICD Code) Assessment Notes Treatment Notes Treatment Clinical Notes Section Notes 10/06/2023 Gastro-esophagea l reflux disease without esophagitis (ICD-10 - K21.9) 10/06/2023 Hiatal hernia (ICD-10 - K44.9) 10/06/2023 Gastric ulcer (ICD-10 - K25.9) Plan Of Treatment No Information Progress Notes * LISA BORDENDOB: [birth year] (50 yo M)Acc No.[id number]:10/06/2023 EGD/MAC Patient: Heidy LISA DIXON Provider: Gwendolyn Zamudio MD :1975 A ge:48 Y S ex:Male Date:10/06/2023 Address: [address] [id number] Pcp:Gordon Cali MD Subjective: * Chief Complaints: * A cute gastric ulcer,gerd Assessment: * Assessment: 1. G dana-esophageal reflux disease without esophagitis - K21.9 (Primary) 2 .?Hiatal hernia - K44.9 3 . G astric ulcer - K25.9 Plan: * Procedure Codes: 4 3239 UPPER GI ENDOSCOPY, BIOPSY Billing Information: * Procedure Codes: 96125 UPPER GI ENDOSCOPY, BIOPSY. * The named appointment provid er may or may not be the originator of this progress note, and it is not deemed complete until electronically signed by the appointment provider. Sign off status: Pending * Provider: Gwendolyn Zamudio MD Date: 0 10/06/2023 Generated for Shanda casey/Park/Kendraitting on: 1 06/01/2024 02:06 PM EST
--- OUTSIDE RECORDS SUMMARY | 2024-04-02 03:30 | XMS_ITS ---
Author Organization Gordon Cali MD Address [address] [place] [phone] Care Team Providers Care Service Supervisor Name Role Phone Gordon Cali Primary Care Provider [phone] Allergies No Known Allergies Results Component Value Reference Range Notes Occult Blood, Stool, Guaiac Reviewed date:04/02/2024 09:16:26 AM Interpretation:Negative Performing Lab: Notes/Report: Negative Occult Blood, Stool, Guaiac Neg REASON FOR VISIT ANNUAL EXAM/ per provider must see Medications Medication SIG (Take, Route, Frequency, Duration) Notes Start Date End Date Status Valtrex 500 MG 1 tablet Orally twic e a day for 3 days 11/27/2017 Not-Taking Hydrocortisone Acetate 2.5 % 1 application to affected area Externally Twice a day 08/18/2016 Not-Augusto molina Atorvastatin Calcium 10 MG TAKE ONE TABL ET BY MOUTH EVERY DAY Active Fish Oil 1200 MG 1 capsule Orally Twi ce a day Active Ketoconazole 2 % 5 ml Externally Twic e a day Active Omeprazole 20 MG 1 capsule 30 minutes before morning meal Orally Once a day Active Social History Tobacco Use: Social History Observation Description Date Details (start date - stop date) Never Smoker NA - NA Tobacco Use/Smoking Question Answer Notes Patient is a nonsmoker Additional Findings: Tobacco Non-User Cu rrent non-smoker, currently using no form of tobacco Alcohol Screen Question Answer Notes Did you have a drink contain ing alcohol in the past year? Yes How often did you have a dri nk containing alcohol in the past year? Monthly or less (1 point) How many drinks did you have on a typical day when you were drinking in the past year? 1 or 2 drinks (0 point) How often did you have 6 or more drinks on one occasion in the past year? Never (0 point) Points 1 Interpretation Negative Vital Signs Blood pressure systolic 110 mm Hg 04/02/20 24 Blood pressure diastolic 70 mm Hg 024 Height 67.5 in 04/02/2024 Weight 184 lbs 04/02/2024 BMI 28.39 kg/m2 04/02/2024 Encounters Encounter Location Date Provider Diagnosis Gordon Cali MD [address] [place] [address] [place] [phone] 04/02/2024 Gordon Cali Hyperlipidemia, unspecified E78.5 ; Annual physical exam Z00.00 ; Elevated LFTs R79.89 ; Gastroesophageal reflux disease without esophagitis K21.9 ; Colon cancer screening Z12.11 and Depression screening Z13.31 Assessments Encounter Date Diagnosis (ICD Code) Assessment Notes Treatment Notes Treatment Clinical Notes Section Notes 04/02/2024 Hyperlipidemia, unspecified (ICD-10 - E78.5) will try stopping meds and recheck in 3 months 04/02/2024 Annual physical exam (ICD-10 - Z00.00) labs reviewed and discussed with patient 04/02/2024 Elevated LFTs (ICD-10 - R79.89) will try stopping the statin and repeat left in 3 months 04/02/2024 Gastroesophageal reflux disease without esophagitis (ICD-10 - K21.9) stable, will contiue current regiment 04/02/2024 Colon cancer screening (ICD-10 - Z12.11) guaiac negative 04/02/2024 Depression screening (ICD-10 - Z13.31) negative screen Plan Of Treatment Treatment Notes Assessment Notes Hyperlipidemia, unspecified will try sto pping meds and recheck in 3 months Annual physical exam labs reviewed and d iscussed with patient Elevated LFTs will try stopping th e statin and repeat left in 3 months Gastroesophageal reflux dise ase without esophagitis stable, will contiue current regiment Colon cancer screening guaiac negative Depression screening negative screen Next Appt Details Follow Up: 3 Months, Reason: Provider Name:Gordon Edge ier, 04/08/2025 09:30:00 AM, [address], [address], [place], [place], [phone], Progress Notes * MICHI FabioDOB: [birth year] (49 yo M)Acc No.[id number]:04/02/2024 Progress Notes Patient: Fabio Cota Provider: Nico Cali MD :1975 A ge:49 Y S ex:Male Date:04/02/2024 Address:[address] [place] [id number] Subjective: * Chief Complaints: * A NNUAL EXAM/ per provider must see * HPI: D epression Screening: PHQ-9 L ittle interest or pleasure in doing things N ot at all, F eeling down, depressed, or hopeless N ot at all, T rouble falling or staying asleep, or sleeping too much N ot at all, F eeling tired or having little energy N ot at all, P oor appetite or overeating N ot at all, F eeling bad about yourself or that you are a failure, or have let yourself or your family down N ot at all, T rouble concentrating on things, such as reading the newspaper or watching television N ot at all, M oving or speaking so slowly that other people could have noticed; or the opposite, being so fidgety or restless that you have been moving around a lot more than usual N ot at all, T houghts that you would be better off or of hurting yourself in some way N ot at all, T otal Score 0 . I nterpretation and Intervention D epression Screening Findings N egative, F ollow-Up for Depression : review of PHQ-9 found negative result, no follow-up needed. C ommunication Needs: Communication Needs D oes the patient have a hearing impairment N o, D oes the patient have a vision impairment? N o, D oes the patient have a cognition impairment? N o. S MARCO A Questions: SDOH Questions I n the past year have you been worried about losing housing? N o, I n the past year have you or any family members you live with been unable to get any of the following when it was really needed? Check all that apply: N one. S ymptom(s): patient is a 49 yo male here for annual visit with review of recent labs and follow up of chronic issues. * ROS: G eneral/Constitutional: Patient denies f atigue , headache. C hange in appetite?denies. C hills d enies. F ever d enies. O phthalmologic: Blurred vision d enies. D ischarge d enies. P ain d enies. E NT: Patient denies d ecreased sense of smell , any loss of taste , sore throat. D ecreased hearing d enies. S ore throat d enies. S wollen glands d enies. E ndocrine: Cold intolerance d enies. E xcessive thirst d enies. H eat intolerance d enies. W eight loss d enies. R espiratory: Cough d enies. S hortness of breath at rest d enies. S hortness of breath with exertion d enies. W heezing d enies. C ardiovascular: Chest pain at rest d enies. C hest pain with exertion?denies. I rregular heartbeat d enies. S hortness of breath d enies. ? G astrointestinal: Abdominal pain d enies. C hange in bowel habits d enies. D iarrhea d enies. N ausea d enies. R ectal bleeding d enies. V omiting d enies . G enitourinary: Blood in urine d enies. D ifficulty urinating d enies. F requent urination d enies. M usculoskeletal: Patient denies m uscle aches. P ainful joints d enies. W eakness d enies. P eripheral Vascular: Patient denies r ed and blue toes. S kin: Dry skin d enies. I tching d enies. D enies?Mole(s), changes in moles, new moles or any lesions of concern. D enies P hotosensitivity. R frantz d enies. N eurologic: Dizziness d enies. F ainting d enies. H eadache?denies. * Medical History: * Surgical History: * Hospitalization/Major Diagno stic Procedure: * Family History: F ather: alive 63 yrs. M other: alive 61 yrs. P aternal Grand Father: . P aternal Grand Mother: alive. M aternal Grand Father: alive. M aternal Grand Mother: . 1 brother(s) , 1 sister(s) . . Father-Healthy Mother-Healthy, No pertinent family medical history, Denies mental health/substance abuse family history, Denies mental health/substance abuse family history, No pertinent family medical history. * Social History: T obacco Use: T obacco Use/Smoking P atient is a n onsmoker, A dditional Findings: Tobacco Non-User C urrent non-smoker, currently using no form of tobacco. D rugs/Alcohol: A lcohol Screen D id you have a drink containing alcohol in the past year? Y es, H ow often did you have a drink containing alcohol in the past year? M onthly or less (1 point), H ow many drinks did you have on a typical day when you were drinking in the past year? 1 or 2 drinks (0 point), H ow often did you have 6 or more drinks on one occasion in the past year? N ever (0 point), P oints 1 , I nterpretation N egative. M iscellaneous: C affeine: yes, frequency:, 1-2 cups per day. no Children. no Community involvements. no Exercise. Housing: owning. Living with: alone. Marital status: . Occupation: works full-time. Pets: dog x1. no Travel outside of the [place]. * Medications: T akingFish Oil 1200 MG Capsule 1 capsule Orally Twice a dayKetoconazole 2 % Shampoo 5 ml Externally Twice a dayAtorvastatin Calcium 10 MG Tablet TAKE ONE TABLET BY MOUTH EVERY DAY Omeprazole 20 MG Capsule Delayed Release 1 capsule 30 minutes before morning meal Orally Once a dayTaking Fish Oil 1200 MG Capsule 1 capsule Orally Twice a dayTaking Ketoconazole 2 % Shampoo 5 ml Externally Twice a dayTaking Atorvastatin Calcium 10 MG Tablet TAKE ONE TABLET BY MOUTH EVERY DAY Taking Omeprazole 20 MG Capsule Delayed Release 1 capsule 30 minutes before morning meal Orally Once a dayNot-Taking/PRNValtrex 500 MG Tablet 1 tablet Orally twice a dayHydrocortisone Acetate 2.5 % Cream 1 application to affected area Externally Twice a dayMedication List reviewed and reconciled with the patientNot-Taking/PRN Valtrex 500 MG Tablet 1 tablet Orally twice a dayNot-Taking/PRN Hydrocortisone Acetate 2.5 % Cream 1 application to affected area Externally Twice a dayMedication List reviewed and reconciled with the patient * Allergies: N .K.D.A.yes[Allergies Verified] Objective: * Vitals: H t: 67.5, Wt:184, BMI:28.39, BP:110/70, Wt-k.46. * Examination: G eneral Examination: GENERAL APPEARANCE: w ell developed, well nourished, in no acute distress. HEAD: n ormocephalic, atraumatic. EYES: p upils equal, round, reactive to light and accommodation, sclera non-icteric. EARS: n ormal. ORAL CAVITY: m ucosa moist. THROAT: c lear. NECK/THYROID: n kem supple, full range of motion, no cervical lymphadenopathy, no bruits. SKIN: w arm and dry, no suspicious lesions. HEART: r egular rate and rhythm, S1, S2 normal, no murmurs.? LUNGS: c lear to auscultation bilaterally. ABDOMEN: s oft, nontender, nondistended, bowel sounds present, normal, no organomegaly , no masses palpable. RECTAL EXAM: n ormal tone, no external hemorrhoids, no masses palpable, prostate normal, stool guaiac negative. MALE GENITOURINARY: n o penile lesions or discharge , uncircumcised , prostate normal , testes descended bilaterally , no testicular mass. EXTREMITIES: n o clubbing, cyanosis, or edema. NEUROLOGIC: n onfocal, motor strength normal upper and lower extremities, sensory exam intact. Assessment: * Assessment: 1. A nnual physical exam - Z00.00 (Primary) 2 . H yperlipidemia, unspecified - E78.5?3. E levated LFTs - R79.89 4 . G astroesophageal reflux disease without esophagitis - K21.9 5 . C olon cancer screening - Z12.11 6 . D epression screening - Z13.31 Plan: * Treatment: 2. H yperlipidemia, unspecified L AB: Liver Panel (Ordered for 07/03/2024) L AB: Lipid Panel (Ordered for 07/03/2024) Notes: will try stopping meds and recheck in 3 months 3. E levated LFTs Notes: will try stopping the statin and repeat left in 3 months 4. G astroesophageal reflux disease without esophagitis Notes: stable, will contiue current regiment 5. C olon cancer screening L AB: Occult Blood, Stool, Guaiac N egative Value Reference Range O ccult Blood, Stool, Guaiac Neg Notes: guaiac negative??6.?Depression screening? Notes: negative screen?? * Procedure Codes: 8 2270 TEST FOR BLOOD, FECES * Follow Up: 3 Months * * Sign off status: Completed true * Provider: Nico Cali MD Date: 06/02/2023 Generated for Shanda casey/Park/Kendraitting on: 06/01/2024 02:07 PM EST History and Physical Notes * HPI (History of Present Illness) Category Sub-Category Detail Notes Category Not es Symptom(s) patient is a 49 yo male here for annual visit with review of recent labs and follow up of chronic issues. Depression Screening PHQ-9 Little inte rest or pleasure in doing things: Not at all Feeling down, depressed, or hopeless: No t at all Trouble falling or staying asleep, or sl eeping too much: Not at all Feeling tired or having little energy: N ot at all Poor appetite or overeating: Not at all Feeling bad about yourself o r that you are a failure, or have let yourself or your family down: Not at all Trouble concentrating on thi ngs, such as reading the newspaper or watching television: Not at all Moving or speaking so slowly that other people could have noticed; or the opposite, being so fidgety or restless that you have been moving around a lot more than usual: Not at all Thoughts that you would be b omar off or of hurting yourself in some way: Not at all Total Score: 0 Interpretation and Intervention Depression Viviane najera Findings: Negative Follow-Up for Depression: : review of PH Q-9 found negative result, no follow-up needed SDOH Questions SDOH Questions In the past year have you been worried about losing housing?: No In the past year have you or any family members you live with been unable to get any of the following when it was really needed? Check all that apply:: None Communication Needs Communication Needs Does the patient have a hearing impairment: No Does the patient have a vision impairmen t?: No Does the patient have a cognition impair ment?: No Examination Category Sub-Category Detail Notes Category Not es General Examination GENERAL APPEARANCE: well dev eloped, well nourished, in no acute distress HEAD: normocephalic, atrau matic EYES: pupils equal, round, reactive to light and accommodation, sclera non-icteric EARS: normal THROAT: clear NECK/THYROID: neck supple, full ra nge of motion, no cervical lymphadenopathy, no bruits HEART: regular rate and rhy thm, S1, S2 normal, no murmurs LUNGS: clear to auscultatio n bilaterally ABDOMEN: soft, nontender, non distended, bowel sounds present, normal, no organomegaly , no masses palpable NEUROLOGIC: nonfocal, motor stre ngth normal upper and lower extremities, sensory exam intact SKIN: warm and dry, no eduardo picious lesions EXTREMITIES: no clubbing, cyanosi s, or edema MALE GENITOURINARY: no penile lesions or discharge , uncircumcised , prostate normal , testes descended bilaterally , no testicular mass RECTAL EXAM: normal tone, no exte rnal hemorrhoids, no masses palpable, prostate normal, stool guaiac negative ORAL CAVITY: mucosa moist
--- OUTSIDE RECORDS SUMMARY | 2024-05-17 03:15 | XMS_ITS ---
Author Organization Gordon Cali MD Address [address] [place] [phone] Care Team Providers Care Sample Wrapper Name Role Phone Gordon Cali Primary Care Provider Allergies No Known Allergies Results Component Value Reference Range Notes Blood Urea Nitrogen Reviewed date:05/17/2024 12:38:09 PM Interpretation: Performing Lab:[facility], [address] [place] [phone] Notes/Report: Blood Urea Nitrogen 12 9-16 mg/dL Creatinine Reviewed date:05/17/2024 12:38:29 PM Interpretation: Performing Lab:[address] [phone] Notes/Report: Creatinine 1.07 0.5-1.4 mg/dL Estimated Glomerular Filt Rate > 60 Chronic Kidney Disease: Estimated GFR < 60 mL/min/1.73m2 Severe Kidney Disease: Estimated GFR < 15 mL/min/1.73m2 HIV Ab/Ag Reviewed date:05/17/2024 12:38:22 PM Interpretation: Performing Lab:[facility], [address] [place] [address], [place] [address] Notes/Report: HIV AB/AG Nonreactive Nonreactive HIV-1 p24 Ag and/or HIV-1/HIV-2 Ab not detected. A test result that is nonreactive does not exclude the possibility of exposure to or infection with HIV-1 and/or HIV-2. Nonreactive results in this assay for individuals with prior exposure to HIV-1 and/or HIV-2 may be due to antigen and antibody levels that are below the limit of detection of this assay. The Voxy HIV Ag/Ab Combo assay result and supplemental assay results should be interpreted in conjunction with the patient's clinical presentation, history and other laboratory results. If the results are inconsistent with clinical evidence, additional testing is suggested to confirm the result. REASON FOR VISIT DISCUSS LABS THAT HE WOULD LIKE DONE Medications Medication SIG (Take, Route, Frequency, Duration) Notes Start Date End Date Status Valtrex 500 MG 1 tablet Orally twic e a day for 3 days 11/27/2017 Not-Taking Hydrocortisone Acetate 2.5 % 1 application to affected area Externally Twice a day 08/18/2016 Not-Takin g Ketoconazole 2 % 5 ml Externally Twic e a day Active Atorvastatin Calcium 10 MG TAKE ONE TABL ET BY MOUTH EVERY DAY Not-Taking Omeprazole 20 MG 1 capsule 30 minutes before morning meal Orally Once a day Active Fish Oil 1200 MG 1 capsule Orally Twi ce a day Active Vital Signs Blood pressure systolic 110 mm Hg 05/17/19 25 Blood pressure diastolic 64 mm Hg 025 Height 67.5 in 05/17/2024 Weight 182 lbs 05/17/2024 BMI 28.08 kg/m2 05/17/2024 weight is down 2 pounds [facility] e 04-02-24 Encounters Encounter Location Date Provider Diagnosis Gordon Cali MD [address] [place], [place] [phone] 05/17/2024 Gordon Cali Right flank pain R10.9 ; Possible exposure to STD Z20.2 and Pre-procedural laboratory examination Z01.812 Assessments Encounter Date Diagnosis (ICD Code) Assessment Notes Treatment Notes Treatment Clinical Notes Section Notes 05/17/2024 Right flank pain (ICD-10 - R10.9) pending diagnostic testing, faxed order to [facility] 05/17/2024 Possible exposure to STD (ICD-10 - Z20.2) pending diagnostic testing 05/17/2024 Pre-procedural laboratory examination (ICD-10 - Z01.812) Plan Of Treatment Treatment Notes Assessment Notes Right flank pain pending diagnostic t esting, faxed order to [facility] Possible exposure to STD pending diagnos tic testing Pending Test Test Name Order Date CT ABD & PELVIS WITH CONTRAST 05/17/2024 RPR (SYPHILIS TP) RFLX CONFIRMATION 05/08 Next Appt Details Follow Up: 6 Weeks, Reason: Provider Name:Gordon Edge ier, 04/08/2025 09:30:00 AM, [address], [address], [place], [place], [phone], Progress Notes * Fabio BORDENDOB: [birth year] (49 yo M)Acc No.[id number]:05/17/2024 Progress Notes Patient: Heidy Fabio montano Provider: Nico Cali MD :1975 A ge:49 Y S ex:Male Date:05/17/2024 Address:[address] [place] [address] [phone] Subjective: * Chief Complaints: * D ISCUSS LABS THAT HE WOULD LIKE DONE * HPI: S ymptom(s): patient is a 49 yo male here for follow up / wants full screen for std's/ had some indiscretions and he did in march. only oral sex./ in april had pain in back on either side. also gets some pain in legs/ pain in back has gone away for weeks. * ROS: G eneral/Constitutional: Denies C hills. D enies F atigue. D enies F ever. D enies H eadache. E NT: Patient denies d ecreased sense of smell , any loss of taste , sore throat. D enies S ore throat. R espiratory: Denies C ough. D enies S hortness of breath at rest. D enies S hortness of breath with exertion. G astrointestinal: Denies D iarrhea. D enies N ausea. M usculoskeletal: Patient denies m uscle aches. P eripheral Vascular: Patient denies r ed and blue toes. * Medical History: * Surgical History: * Hospitalization/Major Diagno stic Procedure: * Medications: T akingFish Oil 1200 MG Capsule 1 capsule Orally Twice a dayKetoconazole 2 % Shampoo 5 ml Externally Twice a dayOmeprazole 20 MG Capsule Delayed Release 1 capsule 30 minutes before morning meal Orally Once a dayTaking Fish Oil 1200 MG Capsule 1 capsule Orally Twice a dayTaking Ketoconazole 2 % Shampoo 5 ml Externally Twice a dayTaking Omeprazole 20 MG Capsule Delayed Release 1 capsule 30 minutes before morning meal Orally Once a dayNot-Taking/PRNAtorvastatin Calcium 10 MG Tablet TAKE ONE TABLET BY MOUTH EVERY DAY Valtrex 500 MG Tablet 1 tablet Orally twice a dayHydrocortisone Acetate 2.5 % Cream 1 application to affected area Externally Twice a dayMedication List reviewed and reconciled with the patientNot-Taking/PRN Atorvastatin Calcium 10 MG Tablet TAKE ONE TABLET BY MOUTH EVERY DAY Not- Taking/PRN Valtrex 500 MG Tablet 1 tablet Orally twice a dayNot-Taking/PRN Hydrocortisone Acetate 2.5 % Cream 1 application to affected area Externally Twice a dayMedication List reviewed and reconciled with the patient * Allergies: N .K.D.A.yes[Allergies Verified] Objective: * Vitals: H t: 67.5, Wt:182, BMI:28.08, BP:110/64 weight is down 2 pounds since 04-02-24. * Examination: G eneral Examination: GENERAL APPEARANCE: a lert, well hydrated, in no distress.? HEAD: n ormocephalic. SKIN: g ood turgor. BACK: n o cva tenderness. Assessment: * Assessment: 1. R ight flank pain - R10.9 (Primary) 2 . P ossible exposure to STD - Z20.2 3 .?Pre-procedural laboratory examination - Z01.812 Plan: * Treatment: 2. P ossible exposure to STD L AB: GC CHLAMYDIA PROBETEC L AB: HIV Ab/Ag L AB: RPR (SYPHILIS TP) RFLX CONFIRMATION (Ordered for 07/15/2024) L AB: HIV Ab/Ag (Ordered for 07/15/2024) Notes: pending diagnostic testing 3. P re-procedural laboratory examination L AB: Blood Urea Nitrogen L AB: Creatinine * Procedure Codes: * Follow Up: 6 Weeks * * Sign off status: Completed true * Provider: Nico Cali MD Date: 0 05/17/2024 Generated for Shanda casey/Park/eTjamesonsmitting on: 06/01/2024 02:07 PM EST History and Physical Notes * HPI (History of Present Illness) Category Sub-Category Detail Notes Category Not es Symptom(s) patient is a 49 yo male here for follow up / wants full screen for std's/ had some indiscretions and he did in march. only oral sex./ in april had pain in back on either side. also gets some pain in legs/ pain in back has gone away for weeks. Examination Category Sub-Category Detail Notes Category Not es General Examination GENERAL APPEARANCE: alert, w ell hydrated, in no distress HEAD: normocephalic SKIN: good turgor BACK: no cva tenderness
--- OUTSIDE RECORDS SUMMARY | 2024-05-20 10:39 | XMS_ITS ---
Author Organization Gordon Cali MD Address [address] [place] [phone] Care Team Providers Care Bag Worker Name Role Phone Gordon Cali Primary Care Provider REASON FOR VISIT lab results Encounters Encounter Location Date Provider Diagnosis Gordon Cali MD [address] [place] [phone] 05/20/2024 Gordon Cali Plan Of Treatment Next Appt Details Provider Name:Gordon Edge ier, 04/08/2025 09:30:00 AM, [address], [address], [place], [place], [phone], Progress Notes * Fabio BORDENDOB: [birth year] (49 yo M)Acc No.[id number]:05/20/2024 Patient: Fabio Cota :1975 A ge:49 Y S ex:Male Address:[address] [place] [address] * true * Date: Generated for Shanda casey/Park/Olivier on: 06/01/2024 02:06 PM EST
--- OUTSIDE RECORDS SUMMARY | 2024-06-11 05:32 | XMS_ITS ---
Author Organization Gordon Cali MD Address [address] [place] [phone] Care Team Providers Care Litigation Specialist Name Role Phone Gordon Cali Primary Care Provider [phone] REASON FOR VISIT Results CT Scan Encounters Encounter Location Date Provider Diagnosis Gordon Cali MD [address] [place] [phone] 06/11/2024 Gordon Cali Plan Of Treatment Next Appt Details Provider Name:Gordon Edge ier, 04/08/2025 09:30:00 AM, [address], [address], [place], [place], [phone], Progress Notes * Fabio BORDENDOB: [birth year] (49 yo M)Acc No.[id number]:06/11/2024 Patient: Fabio LYONS :1975 A ge:49 Y S ex:Male Address:[address] [place], [place] [address] [place] [address] * true * Date: Generated for Shanda casey/Park/Olivier on: 06/01/2024 02:07 PM EST
--- OUTSIDE RECORDS SUMMARY | 2024-07-04 02:00 | XMS_ITS ---
Author Organization Gordon Cali MD Address [address] [place] [phone] Care Team Providers Care Retail Store Clerk Name Role Phone Gordon Cali Primary Care Provider Results Component Value Reference Range Notes Liver Panel Reviewed date:07/04/2024 04:12:23 PM Interpretation: Performing Lab:[facility], [address] [place] [phone] Notes/Report: Bilirubin Total 1.5 0.0-1.0 mg/dL Bilirubin Direct 0.4 0.0-0.5 mg/dL Aspartate Amino Transferase 44 5-37 U/L Alanine Aminotransferase 53 0-40 U/L Total Protein 7.6 6.5-8.0 g/dL Albumin Level 4.3 3.5-5.0 g/dL Alkaline Phosphatase 81 39-117 U/L Lipid Panel Reviewed date:07/04/2024 04:16:49 PM Interpretation: Performing Lab:[facility], [address] [place] [phone] Notes/Report: Triglycerides 171 <150 mg/dL Desirable Triglyceride: less than 150 mg/dL Borderline High Triglyceride 150-199 mg/dL High Triglyceride: 200-499 mg/dL Very High Triglyceride: greater than or equal to 5OO mg/dL Cholesterol 250 <200 mg/dL Desirable Cholesterol: less than 200 mg/dL Borderline High Cholesterol: 200-239 mg/dL High Cholesterol: greater than 239 mg/dL LDL Cholesterol Calculated 177 <100 mg/dL Desirable LDL: less than 100 mg/dL Near Optimal/Above Optimal LDL: 110-129 mg/dL Borderline High LDL: 130-159 mg/dL High LDL: 160-189 mg/dL Very High LDL: greater than or equal to 190 mg/dL HDL Cholesterol 39 >40 mg/dL Desirable HDL: greater than 40 mg/dL Note: This HDL assay may give artificially low results in patients with liver disease. REASON FOR VISIT FASTING LIPID AND LIVER PANEL Encounters Encounter Location Date Provider Diagnosis Gordon Cali MD [address] [place] [address] [place] [phone] 07/04/2024 Gordon Cali Mixed hyperlipidemia E78.2 ; Hyperlipidemia, unspecified E78.5 and Possible exposure to STD Z20.2 Assessments Encounter Date Diagnosis (ICD Code) Assessment Notes Treatment Notes Treatment Clinical Notes Section Notes 07/04/2024 Mixed hyperlipidemia (ICD-10 - E78.2) 07/04/2024 Hyperlipidemia, unspecified (ICD-10 - E78.5) 07/04/2024 Possible exposure to STD (ICD-10 - Z20.2) Plan Of Treatment Next Appt Details Provider Name:Gordon Edge ier, 04/08/2025 09:30:00 AM, [address] [place] [address], [address], [place], [place], [phone], Progress Notes * Fabio BORDENDOB: [birth year] (50 yo M)Acc No.[id number]:07/04/2024 Progress Note Patient: Fabio LYONS Provider: Nico Cali MD :1975 A ge:49 Y S ex:Male Date:07/04/2024 Address:[address] [place] [address] [id number] Subjective: * Chief Complaints: * 1 . FASTING LIPID AND LIVER PANEL. * Medical History: Objective: * Vitals: Assessment: * Assessment: 1. M ixed hyperlipidemia - E78.2 (Primary) 2 . H yperlipidemia, unspecified - E78.5 3 . P ossible exposure to STD - Z20.2 Plan: * Treatment: * Procedure Codes: 3 6415 VENIPUNCT, ROUTINE* * * The named appointment provid er may or may not be the originator of this progress note, and it is not deemed complete until electronically signed by the appointment provider. Sign off status: Pending * Provider: Nico Cali MD Date: 0 07/04/2024 Generated for Shanda casey/Park/Olivier on: 06/01/2024 02:06 PM EST
--- OUTSIDE RECORDS SUMMARY | 2024-07-11 04:00 | XMS_ITS ---
Author Organization [facility]Cli MD Address [address] [place] [phone] Care Team Providers Care Ged Instructor Name Role Phone Gordon Cali Primary Care Provider Allergies No Known Allergies Results Component Value Reference Range Notes HIV Ab/Ag Reviewed date:07/11/2024 12:14:19 PM Interpretation: Performing Lab:[facility], [address] [place] [phone] Notes/Report: HIV AB/AG Nonreactive Nonreactive HIV-1 p24 [...] limit of detection of this assay. The Rh[employer]so HIV Ag/Ab Combo assay result and supplemental assay results should be interpreted in conjunction with the patient's clinical presentation, history and other laboratory results. If the results are inconsistent with clinical evidence, additional testing is suggested to confirm the result. REASON FOR VISIT 3 MO F/U Medications Medication SIG (Take, Route, Frequency, Duration) Notes Start Date End Date Status Hydrocortisone Acetate 2.5 % 1 application to affected area Externally Twice a day 08/18/2016 Not-Takjo g Atorvastatin Calcium 10 MG TAKE ONE TABL ET BY MOUTH EVERY DAY Not-Taking Valtrex 500 MG 1 tablet Orally twic e a day for 3 days 11/27/2017 Not-Taking Ketoconazole 2 % 5 ml Externally Twic e a day Active Omeprazole 20 MG 1 capsule 30 minutes before morning meal Orally Once a day Active Fish Oil 1200 MG 1 capsule Orally Twi ce a day Active Vital Signs Blood pressure systolic 118 mm Hg 07/12/19 25 Blood pressure diastolic 60 mm Hg 025 Height 67.5 in 07/11/2024 Weight 183 lbs 07/11/2024 BMI 28.24 kg/m2 07/11/2024 Encounters Encounter Location Date Provider Diagnosis Gordon Cali MD [address] [place] [address] [place] [phone] 07/11/2024 Gordon Cali Elevated LFTs R79.89 ; Skin lesion L98.9 ; Hyperlipidemia, unspecified E78.5 and Possible exposure to STD Z20.2 Assessments Encounter Date Diagnosis (ICD Code) Assessment Notes Treatment Notes Treatment Clinical Notes Section Notes 07/11/2024 Elevated LFTs (ICD-10 - R79.89) did not change after stopping the statin so will start and recheck 07/11/2024 Skin lesion (ICD-10 - L98.9) is on upper lip may be a cold sore coming. if it doesn't go away in couploe weeks to return 07/11/2024 Hyperlipidemia, unspecified (ICD-10 - E78.5) will restart statin 07/11/2024 Possible exposure to STD (ICD-10 - Z20.2) continuing to monitor STD, following possible exposure Plan Of Treatment Treatment Notes Assessment Notes Elevated LFTs did not change after stopping the statin so will start and recheck Skin lesion is on upper lip may be a cold sore coming. if it doesn't go away in couploe weeks to return Hyperlipidemia, unspecified will restart statin Possible exposure to STD continuing to m onitor STD, following possible exposure Next Appt Details Follow Up: 3 Months, Reason: Provider Name:Gordon Edge ier, 04/08/2025 09:30:00 AM, [address], [address], [place], [phone], Progress Notes * Fabio BORDENDOB: [birth year] (49 yo M)Acc No.[id number]:07/11/2024 Progress Notes Patient: Fabio LYONS Provider: Nico Cali MD :1975 A ge:49 Y S ex:Male Date:07/11/2024 Address:[address] [place] [address] [place], [id number] Subjective: * Chief Complaints: * 3 MO F/U * HPI: S ymptom(s): patient is a 49 yo male here for 3 month follow up visit. has been doing well with no symptoms. * ROS: G eneral/Constitutional: Denies C hills. D enies F atigue. D enies F ever. D enies H eadache. E NT: Patient denies d ecreased sense of smell, any loss of taste, sore throat. D enies S ore throat. R espiratory: Denies C ough. D enies S hortness of breath at rest. D enies S hortness of breath with exertion. G astrointestinal: Denies D iarrhea. D enies N ausea. P eripheral Vascular: Patient denies r ed and blue toes. * Medical History: * Surgical History: * Hospitalization/Major Diagno stic Procedure: * Medications: T akingFish Oil 1200 MG Capsule 1 capsule Orally Twice a day Ketoconazole 2 % Shampoo 5 ml Externally Twice a day Omeprazole 20 MG Capsule Delayed Release 1 capsule 30 minutes before morning meal Orally Once a day Taking Fish Oil 1200 MG Capsule 1 capsule Orally Twice a day Taking Ketoconazole 2 % Shampoo 5 ml Externally Twice a day Taking Omeprazole 20 MG Capsule Delayed Release 1 capsule 30 minutes before morning meal Orally Once a day Not-Taking/PRNAtorvastatin Calcium 10 MG Tablet TAKE ONE TABLET BY MOUTH EVERY DAY Valtrex 500 MG Tablet 1 tablet Orally twice a day Hydrocortisone Acetate 2.5 % Cream 1 application to affected area Externally Twice a day Medication List reviewed and reconciled with the patientNot-Taking/PRN Atorvastatin Calcium 10 MG Tablet TAKE ONE TABLET BY MOUTH EVERY DAY Not- Taking/PRN Valtrex 500 MG Tablet 1 tablet Orally twice a day Not-Taking/PRN Hydrocortisone Acetate 2.5 % Cream 1 application to affected area Externally Twice a day Medication List reviewed and reconciled with the patient * Allergies: N .K.D.A.yes[Allergies Verified] Objective: * Vitals: H t: 67.5, Wt: 183, BMI:28.24, BP:118/60, Wt-k.01. * P ast Orders: L ab:Liver Panel (Order Date - 07/04/2024) (Collection Date & Time - 07/04/2024 07:00 AM) Value Reference Range Bilirubin Total 1.5 H 0.0-1.0 - mg/dL Bilirubin Direct 0.4 0.0-0.5 - mg/dL Aspartate Amino Transferase 44 H 5-37 - U/L Alanine Aminotransferase 53 H 0-40 - U/L Total Protein 7.6 6.5-8.0 - g/dL Albumin Level 4.3 3.5-5.0 - g/dL Alkaline Phosphatase 81 39-117 - U/L L ab:Lipid Panel (Order Date - 07/04/2024) (Collection Date & Time - 07/04/2024 07:00 AM) Value Reference Range Triglycerides 171 H <150 - mg/dL Cholesterol 250 H <200 - mg/dL LDL Cholesterol Calculated 177 H <100 - mg/dL HDL Cholesterol 39 L >40 - mg/dL * Examination: G eneral Examination: GENERAL APPEARANCE: a lert, well hydrated, in no distress.? SKIN: a bnormal with a red 1/2 inch raised lesion on upper lip. Assessment: * Assessment: 1. E levated LFTs - R79.89 (Primary) 2 . S kin lesion - L98.9 ?3. H yperlipidemia, unspecified - E78.5 4 . P ossible exposure to STD - Z20.2 Plan: * Treatment: 2. S kin lesion Notes: is on upper lip may be a cold sore coming. if it doesn't go away in couploe weeks to return? 3. H yperlipidemia, unspecified Notes: will restart statin 4. P ossible exposure to STD L AB: HIV Ab/Ag (Collection Date & Time - 07/11/2024 09:00 AM) L AB: Liver Panel (Ordered for 10/11/2024) L AB: Lipid Panel (Ordered for 10/11/2024) Notes: continuing to monitor STD, following possible exposure * Procedure Codes: 3 6415 VENIPUNCT, ROUTINE* * Follow Up: 3 Months * * Sign off status: Completed true * Provider: Nico Cali MD Date: 0 07/11/2024 Generated for Shanda casey/Park/Olivier on: 06/01/2024 02:06 PM EST History and Physical Notes * HPI (History of Present Illness) Category Sub-Category Detail Notes Category Not es Symptom(s) patient is a 49 yo male here for 3 month follow up visit. has been doing well with no symptoms Examination Category Sub-Category Detail Notes Category Not es General Examination GENERAL APPEARANCE: alert, w ell hydrated, in no distress SKIN: abnormal with a red 1/2 inch raised lesion on upper lip
--- OUTSIDE RECORDS SUMMARY | 2024-10-11 02:30 | XMS_ITS ---
Author Organization Gordon Cali MD Address [address] [place] [phone] Care Team Providers Care Qc Chemist Name Role Phone Gordon Cali Primary Care Provider Results Component Value Reference Range Notes Liver Panel Reviewed date:10/11/2024 06:52:21 PM Interpretation: Performing Lab:[facility], [address] [place] [phone] Notes/Report: Bilirubin Total 1.5 0.0-1.0 mg/dL Bilirubin Direct 0.5 0.0-0.5 mg/dL Aspartate Amino Transferase 51 5-37 U/L Alanine Aminotransferase 56 0-40 U/L Total Protein 7.0 6.5-8.0 g/dL Albumin Level 4.4 3.5-5.0 g/dL Alkaline Phosphatase 72 39-117 U/L Lipid Panel Reviewed date:10/11/2024 06:52:30 PM Interpretation: Performing Lab:[facility], [address] [place] [phone] Notes/Report: Triglycerides 122 <150 mg/dL Desirable Triglyceride: less than 150 mg/dL Borderline High Triglyceride 150-199 mg/dL High Triglyceride: 200-499 mg/dL Very High Triglyceride: greater than or equal to 5OO mg/dL Cholesterol 149 <200 mg/dL Desirable Cholesterol: less than 200 mg/dL Borderline High Cholesterol: 200-239 mg/dL High Cholesterol: greater than 239 mg/dL LDL Cholesterol Calculated 84 <100 mg/dL Desirable LDL: less than 100 mg/dL Near Optimal/Above Optimal LDL: 110-129 mg/dL Borderline High LDL: 130-159 mg/dL High LDL: 160-189 mg/dL Very High LDL: greater than or equal to 190 mg/dL HDL Cholesterol 41 >40 mg/dL Desirable HDL: greater than 40 mg/dL Note: This HDL assay may give artificially low results in patients with liver disease. REASON FOR VISIT HIV AB/AG, LIVER,LIPID PANEL FASTING Encounters Encounter Location Date Provider Diagnosis Gordon Cali MD [address] [place] [address] Drive [address] [place], [place] [phone] 10/11/2024 Gordon Cali Possible exposure to STD Z20.2 Assessments Encounter Date Diagnosis (ICD Code) Assessment Notes Treatment Notes Treatment Clinical Notes Section Notes 10/11/2024 Possible exposure to STD (ICD-10 - Z20.2) Plan Of Treatment Pending Test Test Name Order Date RPR (SYPHILIS TP) RFLX CONFIRMATION 10/2024 Next Appt Details Provider Name:Gordon Edge ier, 04/08/2025 09:30:00 AM, [address], [address], [place], [place], [phone], Progress Notes * Fabio BORDENDOB: [birth year] (50 yo M)Acc No.[id number]:10/11/2024 Progress Note Patient: Heidy ZACK Fabio Provider: Nico Cali MD :1975 A ge:49 Y S ex:Male Date:10/11/2024 Address:[address] [place] [address] [id number] Subjective: * Chief Complaints: * 1 . HIV AB/AG, LIVER,LIPID PANEL FASTING. * Medical History: Objective: * Vitals: Assessment: * Assessment: 1. P ossible exposure to STD - Z20.2 (Primary) Plan: * Treatment: * Procedure Codes: 3 6415 VENIPUNCT, ROUTINE* * * The named appointment provid er may or may not be the originator of this progress note, and it is not deemed complete until electronically signed by the appointment provider. Sign off status: Pending * Provider: Nico Cali MD Date: 0 10/11/2024 Generated for Shanda casey/Park/Kendraitting on: 06/01/2024 02:06 PM EST
--- OUTSIDE RECORDS SUMMARY | 2024-10-17 02:45 | XMS_ITS ---
Author Organization Gordon Cali MD Address [address] [place] [phone] Care Team Providers Care Depalletizer Operator Name Role Phone Gordon Cali Primary Care Provider Allergies No Known Allergies REASON FOR VISIT 3 MO F/U Medications Medication SIG (Take, Route, Frequency, Duration) Notes Start Date End Date Status Hydrocortisone Acetate 2.5 % 1 application to affected area Externally Twice a day 08/18/2016 Not-Takin g Atorvastatin Calcium 10 MG TAKE ONE TABL ET BY MOUTH EVERY DAY for 90 Active Valtrex 500 MG 1 tablet Orally twic e a day for 3 days 11/27/2017 Not-Taking Omeprazole 20 MG 1 capsule 30 minutes before morning meal Orally Once a day Active Ketoconazole 2 % 5 ml Externally Twic e a day Active Fish Oil 1200 MG 1 capsule Orally Twi ce a day Active Vital Signs Blood pressure systolic 104 mm Hg 10/18/19 25 Blood pressure diastolic 66 mm Hg 025 Height 67.5 in 10/17/2024 Weight 179 lbs 10/17/2024 BMI 27.62 kg/m2 10/17/2024 weight is down 4 pounds sin e 07-11-24 Encounters Encounter Location Date Provider Diagnosis Gordon Cali MD [address] [place] [address] [place] [phone] 10/17/2024 Gordon Cali Hyperlipidemia, unspecified E78.5 and Elevated LFTs R79.89 Assessments Encounter Date Diagnosis (ICD Code) Assessment Notes Treatment Notes Treatment Clinical Notes Section Notes 10/17/2024 Hyperlipidemia, unspecified (ICD-10 - E78.5) will continue on the meds 10/17/2024 Elevated LFTs (ICD-10 - R79.89) DIid not go to normal off the meds. is most likely the fatty liver, will continue to monitor Plan Of Treatment Treatment Notes Assessment Notes Hyperlipidemia, unspecified will continu e on the meds Elevated LFTs DIid not go to noe l off the meds. is most likely the fatty liver, will continue to monitor Next Appt Details Provider Name:Gordon Edge ier, 04/08/2025 09:30:00 AM, [address] [place] [address], [address], [place], [place], [phone], Progress Notes * Fabio BORDENDOB: [birth year] (49 yo M)Acc No.[id number]:10/17/2024 Progress Notes Patient: Ingrid LYONSshua Provider: Nico Cali MD :1975 A ge:49 Y S ex:Male Date:10/17/2024 Address:[address] [place] [address] [place], [id number] Subjective: * Chief Complaints: * 3 MO F/U * HPI: S ymptom(s): patient is a 49 yo male here for 3 month follow up visit. * ROS: G eneral/Constitutional: Denies C hills. D enies F atigue. D enies F ever. D enies H eadache. E NT: Denies S ore throat. R espiratory: Denies C ough. D enies S hortness of breath at rest. D enies S hortness of breath with exertion. G astrointestinal: Denies D iarrhea. D enies N ausea. * Medical History: * Surgical History: * Hospitalization/Major Diagno stic Procedure: * Medications: T akingFish Oil 1200 MG Capsule 1 capsule Orally Twice a day Ketoconazole 2 % Shampoo 5 ml Externally Twice a day Omeprazole 20 MG Capsule Delayed Release 1 capsule 30 minutes before morning meal Orally Once a day Atorvastatin Calcium 10 MG Tablet TAKE ONE TABLET BY MOUTH EVERY DAY Taking Fish Oil 1200 MG Capsule 1 capsule Orally Twice a day Taking Ketoconazole 2 % Shampoo 5 ml Externally Twice a day Taking Omeprazole 20 MG Capsule Delayed Release 1 capsule 30 minutes before morning meal Orally Once a day Taking Atorvastatin Calcium 10 MG Tablet TAKE ONE TABLET BY MOUTH EVERY DAY Not-Taking/PRNValtrex 500 MG Tablet 1 tablet Orally twice [...] Objective: * Vitals: H t: 67.5, Wt: 179, BMI:27.62, BP:104/66, Wt-k.19. weight is down 4 pounds since 07-11-24. * P ast Orders: L ab:RPR Monitor reflex titer (Order Date - 10/11/2024) (Collection Date & Time - 10/11/2024 07:30 AM) Value Reference Range RPR Rapid Plasma Reagin NON-REACTIVE NON-REACTIVE - Rapid Plasma Reagin Ab Titer TNP - L ab:Liver Panel (Order Date - 10/11/2024) (Collection Date & Time - 10/11/2024 07:30 AM) Value Reference Range Bilirubin Total 1.5 H 0.0-1.0 - mg/dL Bilirubin Direct 0.5 0.0-0.5 - mg/dL Aspartate Amino Transferase 51 H 5-37 - U/L Alanine Aminotransferase 56 H 0-40 - U/L Total Protein 7.0 6.5-8.0 - g/dL Albumin Level 4.4 3.5-5.0 - g/dL Alkaline Phosphatase 72 39-117 - U/L L ab:Lipid Panel (Order Date - 10/11/2024) (Collection Date & Time - 10/11/2024 07:30 AM) Value Reference Range Triglycerides 122 <150 - mg/dL Cholesterol 149 <200 - mg/dL LDL Cholesterol Calculated 84 <100 - mg/dL HDL Cholesterol 41 >40 - mg/dL * Examination: G eneral Examination: GENERAL APPEARANCE: a lert, well hydrated, in no distress.? HEAD: n ormocephalic. SKIN: g ood turgor. HEART: r egular rate and rhythm, no murmurs, rubs, gallops.? LUNGS: n o wheezes, rales, rhonchi, good air movement, clear to auscultation bilaterally. ABDOMEN: s oft, nontender, nondistended, no rebound tenderness, no organomegaly. Assessment: * Assessment: 1. H yperlipidemia, unspecified - E78.5 (Primary) 2 . E levated LFTs - R79.89 Plan: * Treatment: 2. E levated LFTs L AB: Liver Panel (Ordered for 10/17/2024) Notes: DIid not go to normal off the meds. is most likely the fatty liver, will continue to monitor? * Procedure Codes: * * Sign off status: Completed true * Provider: Nico Cali MD Date: 0 10/17/2024 Generated for Shanda casey/Park/Kendraitting on: 1 06/01/2024 02:07 PM EST History and Physical Notes * HPI (History of Present Illness) Category Sub-Category Detail Notes Category Not es Symptom(s) patient is a 49 yo male here for 3 month follow up visit Examination Category Sub-Category Detail Notes Category Not es General Examination GENERAL APPEARANCE: alert, w ell hydrated, in no distress HEAD: normocephalic HEART: regular rate and rhy thm, no murmurs, rubs, gallops LUNGS: no wheezes, rales, r honchi, good air movement, clear to auscultation bilaterally ABDOMEN: soft, nontender, non distended, no rebound tenderness, no organomegaly SKIN: good turgor
--- OUTSIDE RECORDS SUMMARY | 2025-01-17 03:00 | XMS_ITS ---
Author Organization Gordon Cali MD Address [address] [place] [phone] Care Team Providers Care Data Processing Supervisor Name Role Phone Gordon Cali Primary Care Provider Results Component Value Reference Range Notes Liver Panel Reviewed date:01/17/2025 12:34:55 PM Interpretation: Performing Lab:[facility], [address] [place] [phone] Notes/Report: Bilirubin Total 1.7 0.0-1.0 mg/dL Bilirubin Direct 0.4 0.0-0.5 mg/dL Aspartate Amino Transferase 44 5-37 U/L Alanine Aminotransferase 48 0-40 U/L Total Protein 6.9 6.5-8.0 g/dL Albumin Level 4.4 3.5-5.0 g/dL Alkaline Phosphatase 76 39-117 U/L REASON FOR VISIT liver panel Encounters Encounter Location Date Provider Diagnosis Gordon Cali MD [address] [place] [phone] 01/17/2025 Gordon Cali Elevated LFTs R79.89 Assessments Encounter Date Diagnosis (ICD Code) Assessment Notes Treatment Notes Treatment Clinical Notes Section Notes 01/17/2025 Elevated LFTs (ICD-10 - R79.89) Plan Of Treatment Next Appt Details Provider Name:Gordon Edge ier, 04/08/2025 09:30:00 AM, [address], [address], [place], [place], [phone], Progress Notes * Ingrid BORDENmadhubryannaDOB: [birth year] (50 yo M)Acc No.[id number]:01/17/2025 Progress Note Patient: Fabio LYONS Provider: Nico Cali MD :1975 A ge:49 Y S ex:Male Date:01/17/2025 Address:[address] [place], [place] [phone] Subjective: * Chief Complaints: * 1 . Liver panel. * Medical History: Objective: * Vitals: Assessment: * Assessment: 1. E levated LFTs - R79.89 (Primary) Plan: * Treatment: * Procedure Codes: 3 6415 VENIPUNCT, ROUTINE* * * The named appointment provid er may or may not be the originator of this progress note, and it is not deemed complete until electronically signed by the appointment provider. Sign off status: Pending * Provider: Nico Cali MD Date: 0 01/17/2025 Generated for Shanda casey/Park/Birdsmitting on: 06/01/2024 02:06 PM EST
--- OUTSIDE RECORDS SUMMARY | 2025-04-01 02:15 | XMS_ITS ---
Author Organization Gordon Cali MD Address [address] [place] [phone] Care Team Providers Care Mold Loft Worker Name Role Phone Gordon Cali Primary Care Provider Results Component Value Reference Range Notes Complete Blood Count Auto Di ff (Not yet reviewed by provider) Interpretation: Performing Lab:[facility], [address] [place] [phone] Notes/Report: White Blood Count 6.9 4.8-10.8 X10*3/uL Red Blood Count 4.78 4.60-5.80 X10*6/uL Hemoglobin 15.7 14.0-18.0 g/dl Hematocrit 45.1 42.0-52.0 % Mean Corpuscular Volume 94.4 80.0-98.0 fL Mean Corpuscular Hemoglobin 32.8 27.0-33.0 pg Mean Corpuscular HGB Conc 34.8 31.0-36.0 g/dl Red Cell Distribution Width 12.2 11.0-16.0 % Platelet Count 216 160-400 X10*3/uL Mean Platelet Volume 10.3 9.4-12.4 fL Neutrophils Percent Auto 57.0 45-73 % Imm Gran Pct Auto 0.3 0.0-0.4 % Lymphocytes Percent Auto 32.0 20-40 % Monocytes Percent Auto 8.7 2-11 % Eosinophils Percent Auto 1.6 0-4 % Basophils Percent Auto 0.4 0-2 % NRBC Pct Auto 0.0 0.0-0.2 /100WBC Neutrophils Absolute Auto 3.9 2.0-8.3 x10*3/u L Imm Gran Abs Auto 0.02 0.00-0.03 X10*3/uL Lymphocytes Absolute Auto 2.2 1.2-4.9 X10*3/u L Monocytes Absolute Auto 0.6 0.1-1.2 X10*3/uL Eosinophils Absolute Auto 0.1 0.0-0.4 X10*3/u L Basophils Absolute Auto 0.0 0.0-0.2 X10*3/uL NRBC Abs Auto 0.000 0.0-0.012 X10*3/uL Lipid Panel (Not yet reviewe d by provider) Interpretation: Performing Lab:[address] [phone] Notes/Report: Triglycerides 141 <150 mg/dL Desirable Triglyceride: less than 150 mg/dL Borderline High Triglyceride 150-199 mg/dL High Triglyceride: 200-499 mg/dL Very High Triglyceride: greater than or equal to 5OO mg/dL Cholesterol 174 <200 mg/dL Desirable Cholesterol: less than 200 mg/dL Borderline High Cholesterol: 200-239 mg/dL High Cholesterol: greater than 239 mg/dL LDL Cholesterol Calculated 104 <100 mg/dL Desirable LDL: less than 100 mg/dL Near Optimal/Above Optimal LDL: 110-129 mg/dL Borderline High LDL: 130-159 mg/dL High LDL: 160-189 mg/dL Very High LDL: greater than or equal to 190 mg/dL HDL Cholesterol 42 >40 mg/dL Desirable HDL: greater than 40 mg/dL Note: This HDL assay may give artificially low results in patients with liver disease. UA ClnCatch+Micro w/rflx Cul t (Not yet reviewed by provider) Interpretation: Performing Lab:[facility] [phone] Notes/Report: Urine, Clean Catch Color Urine Yellow Appearance Urine Clear PH 6.5 5.0-9.0 Glucose Urine UA Negative Negative mg/dL Urine Blood Trace Negative Specific [place] - Urine 1.015 1.005-1.025 Urine Protein Negative Neg-Trace mg/dL Urine Ketones Negative Negative mg/dL Nitrite Urine Negative Negative Leukocyte Esterase Urine Negative Negative RBC Urine 0-2 0-2 /HPF WBC Urine 0-5 0-5 /HPF Squamous Epithelial Cell Urine 0-2 0-2 /HPF Bacteria Urine None Seen None Seen Hyaline Casts Urine 0-2 0-2 /LPF Comprehensive [place]. Panel Fa Reviewed date:04/01/2025 12:40:40 PM Interpretation: Performing Lab:[address] [phone] Notes/Report: Sodium 141 135-145 mmol/L Potassium 3.8 3.3-5.1 mmol/L Chloride 105 96-108 mmol/L Carbon Dioxide 29 22-29 mmol/L Anion Gap 11 12-20 Blood Urea Nitrogen 12 9-16 mg/dL Creatinine 1.04 0.5-1.4 mg/dL Estimated Glomerular Filt Rate > 60 Chronic Kidney Disease: Estimated GFR < 60 mL/min/1.73m2 Severe Kidney Disease: Estimated GFR < 15 mL/min/1.73m2 Glucose Fasting 102 60-99 mg/dL A fasting glucose from 100-125 mg/dl is considered impaired (pre-diabetes). Calcium 9.6 8.4-10.2 mg/dL Bilirubin Total 1.0 0.0-1.0 mg/dL Aspartate Amino Transferase 57 5-37 U/L Alanine Aminotransferase 91 0-40 U/L Total Protein 7.2 6.5-8.0 g/dL Albumin Level 4.6 3.5-5.0 g/dL Alkaline Phosphatase 82 39-117 U/L PSA,Total (Free>4and<10) Reviewed date:04/01/2025 12:40:49 PM Interpretation: Performing Lab:[address] [phone] Notes/Report: PSA,Total (Free>4and<10) 0.67 0.00-4.00 ng/mL A Free PSA was not [...] Velez Alinity i Chemiluminescent Microparticle Immunoassay (CMIA) REASON FOR VISIT FASTING LABS Encounters Encounter Location Date Provider Diagnosis Gordon Cali MD [address] [place] [address] [place] [phone] 04/01/2025 Gordon Cali Blood tests for routine general physical examination Z00.00 ; Hyperlipidemia, unspecified E78.5 and Elevated LFTs R79.89 Assessments Encounter Date Diagnosis (ICD Code) Assessment Notes Treatment Notes Treatment Clinical Notes Section Notes 04/01/2025 Blood tests for routine general physical examination (ICD-10 - Z00.00) 04/01/2025 Hyperlipidemia, unspecified (ICD-10 - E78.5) 04/01/2025 Elevated LFTs (ICD-10 - R79.89) Plan Of Treatment Pending Test Test Name Order Date Complete Blood Count Auto Diff Lipid Panel 04/01/2025 UA ClnCatch+Micro w/rflx Cult 04/01/2025 Next Appt Details Provider Name:Gordon Edge ier, 04/08/2025 09:30:00 AM, [address] [place] [address], Suite [facility], [place], [place], [phone], Progress Notes * Fabio BORDENDOB: [birth year] (50 yo M)Acc No.[id number]:04/01/2025 Progress Note Patient: Ingrid LYONSshua Provider: Nico Cali MD :1975 A ge:50 Y S ex:Male Date:04/01/2025 Address:[address] [place] [address] [phone] Subjective: * Chief Complaints: * 1 . FASTING LABS. * Medical History: Objective: * Vitals: Assessment: * Assessment: 1. B lood tests for routine general physical examination - Z00.00 (Primary) 2 .?Hyperlipidemia, unspecified - E78.5 3 . E levated LFTs - R79.89 Plan: * Treatment: 2. H yperlipidemia, unspecified L AB: Complete Blood Count Auto Diff (Collection Date & Time - 04/01/2025 07:15 AM) L AB: Lipid Panel (Collection Date & Time - 04/01/2025 07:15 AM) L AB: UA ClnCatch+Micro w/rflx Cult (Collection Date & Time - 04/01/2025 07:15 AM) L AB: Comprehensive [place]. Panel Fast (Collection Date & Time - 04/01/2025 07:15 AM) L AB: PSA,Total (Free>4and<10) (Collection Date & Time - 04/01/2025 07:15 AM) 3. E levated LFTs L AB: Complete Blood Count Auto Diff (Collection Date & Time - 04/01/2025 07:15 AM) L AB: Lipid Panel (Collection Date & Time - 04/01/2025 07:15 AM) L AB: UA ClnCatch+Micro w/rflx Cult (Collection Date & Time - 04/01/2025 07:15 AM) L AB: Comprehensive [place]. Panel Fast (Collection Date & Time - 04/01/2025 07:15 AM) L AB: PSA,Total (Free>4and<10) (Collection Date & Time - 04/01/2025 07:15 AM) * Procedure Codes: 3 6415 VENIPUNCT, ROUTINE* * * The named appointment provid er may or may not be the originator of this progress note, and it is not deemed complete until electronically signed by the appointment provider. Sign off status: Pending * Provider: Nico Cali MD Date: 06/01/2024 Generated for Shanda casey/Park/Olivier on: 06/01/2024 02:05 PM EST
[2025-04-01 10:55] LABS: MANUAL DIFF FLAG NO
[2025-04-01 11:13] LABS: Hematocrit 45.1 % (42.0-52.0); Hemoglobin 15.7 g/dl (14.0-18.0); Imm Gran Abs Auto 0.02 X10*3/uL (0.00-0.03); Imm Gran Pct Auto 0.3 % (0.0-0.4); Lymphocytes Absolute Auto 2.2 X10*3/uL (1.2-4.9); Mean Corpuscular HGB Conc 34.8 g/dl (31.0-36.0); Mean Corpuscular Hemoglobin 32.8 pg (27.0-33.0); Mean Corpuscular Volume 94.4 fL (80.0-98.0); NRBC Abs Auto 0.000 X10*3/uL (0.0-0.012); NRBC Pct Auto 0.0 /100WBC (0.0-0.2); Platelet Count 216 X10*3/uL (160-400); Red Blood Count 4.78 X10*6/uL (4.60-5.80); White Blood Count 6.9 X10*3/uL (4.8-10.8)
[2025-04-01 11:15] LABS: Appearance Urine Clear; Glucose Urine UA Negative (Negative); PH 6.5 (5.0-9.0); Specific Gravity - Urine 1.015 (1.005-1.025); UMIC TRIGGER UACC YES
[2025-04-01 11:27] LABS: Alanine Aminotransferase 91 U/L (0-40); Albumin Level 4.6 g/dL (3.5-5.0); Alkaline Phosphatase 82 U/L (39-117); Anion Gap 11 (12-20); Aspartate Amino Transferase 57 U/L (5-37); Blood Urea Nitrogen 12 mg/dL (9-16); Calcium 9.6 mg/dL (8.4-10.2); Carbon Dioxide 29 mmol/L (22-29); Chloride 105 mmol/L (96-108); Cholesterol 174 mg/dL (<200); Estimated Glomerular Filt Rate > 60; HDL Cholesterol 42 mg/dL (>40); Potassium 3.8 mmol/L (3.3-5.1); Sodium 141 mmol/L (135-145); Total Protein 7.2 g/dL (6.5-8.0); Triglycerides 141 mg/dL (<150)
[2025-04-01 11:43] LABS: PSA,Total (Free>4and<10) 0.67 ng/mL (0.00-4.00)
--- OUTSIDE RECORDS SUMMARY | 2025-04-01 14:06 | XMS_ITS | Clinical Summary ---
Author Organization [facility] Address [address] [place] [address] Care Team Providers Care Salvage Grinder Name Role Phone Damian Cali MD Primary Care Provider [phone] Social History Tobacco Use Types Packs/Day Years [...] Colonoscopy 2022 Diabetes screening 2022 Influenza vaccine 12/06/2024 Covid-19 vaccine series ( - 2024- season) 2025 RSV Immunization (1 - 1-dose 75+ series) [...] Payer ID:[id number] (NAIC) Type:Not on file Address: [place] [id number] [facility] CIG CIGNA Care Teams Salvage Grinder Relationship Specialty Start Date End Date Damian Cali MD [address] [place] [phone] PCP - General Internal Medicine 08/06/18
--- OUTSIDE RECORDS SUMMARY | 2025-04-01 14:07 | XMS_ITS | Patient Health Record ---
Author Organization Gordon Cali MD Address [address] [place], [place] [phone] Care Team Providers Care Escort Vehicle Driver Name Role Phone Gordon Cali Primary Care Provider Allergies No Known Allergies Results Component Value Reference Range Notes Liver Panel Reviewed date:07/04/2024 04:12:23 PM Interpretation: Performing Lab:[facility], [address] [place] [phone] Notes/Report: Bilirubin Total 1.5 0.0-1.0 mg/dL Bilirubin Direct 0.4 0.0-0.5 mg/dL Aspartate Amino Transferase 44 5-37 U/L Alanine Aminotransferase 53 0-40 U/L Total Protein 7.6 6.5-8.0 g/dL Albumin Level 4.3 3.5-5.0 g/dL Alkaline Phosphatase 81 39-117 U/L Lipid Panel Reviewed date:07/04/2024 04:16:49 PM Interpretation: Performing Lab:[facility], [address] [place] [phone] Notes/Report: Triglycerides 171 <150 mg/dL Desirable Triglyceride: [...] Panel Reviewed date:10/11/2024 06:52:21 PM Interpretation: Performing Lab:[facility], [address] [place] [phone] Notes/Report: Bilirubin Total 1.5 0.0-1.0 mg/dL Bilirubin Direct 0.5 0.0-0.5 mg/dL Aspartate Amino Transferase 51 5-37 U/L Alanine Aminotransferase 56 0-40 U/L Total Protein 7.0 6.5-8.0 g/dL Albumin Level 4.4 3.5-5.0 g/dL Alkaline Phosphatase 72 39-117 U/L Lipid Panel Reviewed date:10/11/2024 06:52:30 PM Interpretation: Performing Lab:[facility], [address] [place] [phone] Notes/Report: Triglycerides 122 <150 mg/dL Desirable Triglyceride: [...] Panel Reviewed date:01/17/2025 12:34:55 PM Interpretation: Performing Lab:[facility], [address] [place] [phone] Notes/Report: Bilirubin Total 1.7 0.0-1.0 mg/dL Bilirubin Direct 0.4 0.0-0.5 mg/dL Aspartate Amino Transferase 44 5-37 U/L Alanine Aminotransferase 48 0-40 U/L Total Protein 6.9 6.5-8.0 g/dL Albumin Level 4.4 3.5-5.0 g/dL Alkaline Phosphatase 76 39-117 U/L Complete Blood Count Auto Di ff (Not yet reviewed by provider) Interpretation: Performing Lab:[facility], [address] [place] [phone] Notes/Report: White Blood Count 6.9 4.8-10.8 X10*3/uL [...] yet reviewe d by provider) Interpretation: Performing Lab:[address] [phone] Notes/Report: Triglycerides 141 <150 mg/dL Desirable Triglyceride: [...] (Not yet reviewed by provider) Interpretation: Performing Lab:[address] [phone] Notes/Report: Urine, Clean Catch Color Urine Yellow Appearance Urine Clear PH 6.5 5.0-9.0 Glucose Urine UA Negative Negative mg/dL Urine Blood Trace Negative Specific [place] - Urine 1.015 1.005-1.025 Urine Protein Negative Neg-Trace mg/dL Urine Ketones Negative Negative mg/dL Nitrite Urine Negative Negative Leukocyte Esterase Urine Negative Negative RBC Urine 0-2 0-2 /HPF WBC Urine 0-5 0-5 /HPF Squamous Epithelial Cell Urine 0-2 0-2 /HPF Bacteria Urine None Seen None Seen Hyaline Casts Urine 0-2 0-2 /LPF Comprehensive [place]. Panel [facility] Reviewed date:04/01/2025 12:40:40 PM Interpretation: Performing Lab:[facility], [address] [place] [phone] Notes/Report: Sodium 141 135-145 mmol/L Potassium 3.8 [...] (Free>4and<10) Reviewed date:04/01/2025 12:40:49 PM Interpretation: Performing Lab:[facility], [address] [place] [phone] Notes/Report: PSA,Total (Free>4and<10) 0.67 0.00-4.00 ng/mL A [...] Velez Alinity i Chemiluminescent Microparticle Immunoassay (CMIA) Occult Blood, Stool, Guaiac Reviewed date:04/02/2024 09:16:26 AM Interpretation:Negative Performing Lab: Notes/Report: Negative Occult Blood, Stool, Guaiac Neg Blood Urea Nitrogen Reviewed date:05/17/2024 12:38:09 PM Interpretation: Performing Lab:[facility], [address] [place] [phone] Notes/Report: Blood Urea Nitrogen 12 9-16 mg/dL Creatinine Reviewed date:05/17/2024 12:38:29 PM Interpretation: Performing Lab:[address] [phone] Notes/Report: Creatinine 1.07 0.5-1.4 mg/dL Estimated Glomerular Filt Rate > 60 Chronic Kidney Disease: Estimated GFR < 60 mL/min/1.73m2 Severe Kidney Disease: Estimated GFR < 15 mL/min/1.73m2 HIV Ab/Ag Reviewed date:05/17/2024 12:38:22 PM Interpretation: Performing Lab:[address] [phone] Notes/Report: HIV AB/AG Nonreactive Nonreactive HIV-1 p24 [...] limit of detection of this assay. The [employer] HIV Ag/Ab Combo assay result and supplemental assay results should be interpreted in conjunction with the patient's clinical presentation, history and other laboratory results. If the results are inconsistent with clinical evidence, additional testing is suggested to confirm the result. HIV Ab/Ag Reviewed date:07/11/2024 12:14:19 PM Interpretation: Performing Lab:[address] [phone] Notes/Report: HIV AB/AG Nonreactive Nonreactive HIV-1 p24 [...] limit of detection of this assay. The [employer] HIV Ag/Ab Combo assay result and supplemental assay results should be interpreted in conjunction with the patient's clinical presentation, history and other laboratory results. If the results are inconsistent with clinical evidence, additional testing is suggested to confirm the result. CT NG by PCR Reviewed date:05/17/2024 12:40:47 PM Interpretation: Performing Lab:[address] [phone] Notes/Report: Urine CT PCR NOT DETECTED Not [...] Stewart Reviewed date:07/04/2024 04:12:02 PM Interpretation: Performing Lab:[facility], [address] [place] [phone] Notes/Report: Shayan Stewart See Note Specimen held untested for 24 hours; Call to request Chemistry testing. Hold Green Gel Reviewed date:07/11/2024 12:24:01 PM Interpretation: Performing Lab:[facility], [address] [place] [phone] Notes/Report: Hold Green Gel See Note Specimen held untested for 24 hours; Call to request Chemistry testing. RPR Monitor reflex titer Reviewed date:10/15/2024 12:14:48 PM Interpretation: Performing Lab:[facility], [address] [place] [phone] Notes/Report: RPR Rapid Plasma Reagin NON-REACTIVE NON-REACTIVE THIS TEST WAS PERFORMED AT: [facility] [address] [place] [phone] NEO CATHERINE MD Rapid Plasma Reagin Ab [...] Administered pt was given the vaccine at [facility] in [place]. Tetanus Unknown 02/02/2018 Administered Fluarix Quadrivalent Unknown [...] Problem Status W/U Status Risk Notes Problem [id number] Mixed hyperlipid emia (E78.2) Active confirmed Problem 59344419 Hyperlipidemia, unspecified (E78.5) Active confirmed Problem 926257938 Elevated LFTs (R79.89) Active confirmed Problem 895084700 Gastroesophageal reflux disease without esophagitis (K21.9) Active confirmed Problem 475452816 Low HDL (under 4 0) (E78.6) Active confirmed Problem 39035454 Seborrhea (L21.9) Active confirmed Problem 389081271 Elevated triglycerides with high cholesterol (E78.2) Active confirmed Problem 31562974 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) Active confirmed Problem 46968392 ALAN (obstructive sleep apnea) (G47.33) Active confirmed Problem 911487836 Genital warts (A63.0) Active confirmed Vital Signs [...] Location Date Provider Diagnosis Gordon Cali MD [address] [place] [address] Drive [address] [place], [place] [phone] 07/04/2024 Gordon Cali Mixed hyperlipidemia E78.2 ; Hyperlipidemia, unspecified E78.5 and Possible exposure to STD Z20.2 Gordon Cali MD [address] [place] [id number] 10/11/2024 Gordon Cali Possible exposure to STD Z20.2 Gordon Cali MD [address] [place] [id number] 01/17/2025 Gordon Cali Elevated LFTs R79.89 Gordon Cali MD [address] [place] [id number] 04/01/2025 Gordon Cali Blood tests for rout ine general physical examination Z00.00 ; Hyperlipidemia, unspecified E78.5 and Elevated LFTs R79.89 Gordon Cali MD [address] [place] [id number] 04/02/2024 Gordon Cali Hyperlipidemia, unspecified E78.5 ; Annual physical exam Z00.00 ; Elevated LFTs R79.89 ; Gastroesophageal reflux disease without esophagitis K21.9 ; Colon cancer screening Z12.11 and Depression screening Z13.31 Gordon Cali MD [address] [place] [id number] 05/17/2024 Gordon Cali Right flank pain R10 .9 ; Possible exposure to STD Z20.2 and Pre-procedural laboratory examination Z01.812 Gordon Cali MD [address] [place] [id number] 07/11/2024 Gordon Cali Elevated LFTs R79.89 ; Skin lesion L98.9 ; Hyperlipidemia, unspecified E78.5 and Possible exposure to STD Z20.2 Gordon Cali MD [address] [place] [id number] 10/17/2024 Gordon Cali Hyperlipidemia, unspecified E78.5 and Elevated LFTs R79.89 Gordon Cali MD [address] [place] [id number] 05/20/2024 Gordon Cali MD [address] [place] [id number] 06/11/2024 Gordon Cali Assessments Encounter Date Diagnosis (ICD Code) Assessment Notes Treatment Notes Treatment Clinical Notes Section Notes 07/04/2024 Mixed hyperlipidemia (ICD-10 - E78.2) 10/11/2024 Possible exposure to STD (ICD-10 - Z20.2) 01/17/2025 Elevated LFTs (ICD-10 - R79.89) 04/01/2025 Blood tests for routine general physical examination (ICD-10 - Z00.00) 04/02/2024 Hyperlipidemia, unspecified (ICD-10 - E78.5) will [...] - E78.5) will continue on the meds 07/04/2024 Hyperlipidemia, unspecified (ICD-10 - E78.5) 04/01/2025 Hyperlipidemia, unspecified (ICD-10 - E78.5) 04/02/2024 Elevated [...] Possible exposure to STD (ICD-10 - Z20.2) 04/01/2025 Elevated LFTs (ICD-10 - R79.89) 04/02/2024 Gastroesophageal reflux disease without esophagitis (ICD-10 [...] CT ABD & PELVIS WITH CONTRAST 05/17/2024 Complete Blood Count Auto Diff Lipid Panel 04/01/2025 UA ClnCatch+Micro w/rflx Cult 04/01/2025 RPR (SYPHILIS TP) RFLX CONFIRMATION 06/0 10/2024 Next Appt Details Provider Name:Gordon Edge ier, 04/08/2025 09:30:00 AM, [address] [place] [address], [address], [place], [place], [phone], Insurance Providers Payer Name Payer Address Payer Phone Subscriber Number Group Number Insured Name Patient Relationship to Insured Coverage Start Date Coverage End Date [employer] [facility] [address] [place], [place] [id number] [phone] [id number] Fabio Small i Self - patient is the insured Medical (General) History Medical History History ICD Code esophageal reflux: colonosco py 02/24/23 repeat 5 years andendoscopy in 5 years lft's were normal before going on statin s
--- OUTSIDE RECORDS SUMMARY | 2025-04-01 14:07 | XMS_ITS | Clinical Summary ---
Author Organization [facility] Address [address] [facility] [address] [place] [phone] Phone Care Team Providers Care Superintendent Recreation Name Role Phone Gordon Cali MD Primary Care Provider Allergies No [...] FOBT 2022 SIGMOIDOSCOPY 2022 VIRTUAL COLONOSCOPY 2022 INFLUENZA VACCINE (#1) 2024 0, 02/26/2019 COVID-19 VACCINE (2 - 2024-2 6 season) 2025 08/05/2020 Adult Td,Tdap Booster 02/03/2028 02/02/2018 SMOKING STATUS SCREENING (On ce After 26 Yrs) Completed 08/25/2015 HEPATITIS C SCREENING Completed 08/03/2020 , 08/03/2020 HIV ONE-TIME SCREENING (18-6 5 YEARS) [...] 9:51 AM EDT) HCV ANTIBODY Negative Negative [facility] Comment:Antibodies to HCV no t detected. Does not exclude the possibility of exposure to HCV. 08/03/2020 9:51 AM EDT 08/03/2020 3:19 PM EDT us Ivon Kelly MD LAB BLOOD BKR ORDERABLES Fi nal Result [address] [phone] from Last 3 Months or Most Recently Relevant to Health Maintenance Insurance CIGNA PPO CIGNA PPO CIGNA PPO CIGNA PPO CIGNA PPO CIGNA PPO CIGNA PPO CIGNA PPO CIGNA PPO Care Teams Superintendent Recreation Relationship Specialty Start Date End Date Gordon Cali MD [address] [place] [address] [place] [address] PCP - General Internal Medicine 08/17/15 Additional Source Comments The information contained in this document represents components of the legal health record. It is not the complete legal health record.[facility]
--- OUTSIDE RECORDS SUMMARY | 2025-04-01 14:07 | XMS_ITS | Encounter Summary ---
Author Organization [facility] Address [address] [facility] [address] [place] [phone] Phone Care Team Providers Care Tongue Lining Stitcher Name Role Phone Gordon Cali MD Primary Care Provider Encounter Details Date Type Department Care Team (Latest Contact Info) Description 08/24/2015 Transcribe Orders [facility] [address] [address] Fransisco Barr MD [address] [place] [id number] [email or web address] SNHL (sensorineural hearing loss) (Primary Dx) Social [...] loss documented in this encounter Care Teams Tongue Lining Stitcher Relationship Specialty Start Date End Date Gordon Cali MD [address] [place] [address] [place] [address] PCP - General Internal Medicine 08/17/15 documented as of this encounter Additional Source Comments The information contained in this document represents components of the legal health record. It is not the complete legal health record.[facility]
--- OUTSIDE RECORDS SUMMARY | 2025-04-01 14:07 | XMS_ITS | Patient Health Record ---
Author Organization [facility] Address [address] [place] [id number] Care Team Providers Care Marine Gear Keeper Name Role Phone Gordon Cali MD Primary Care Provider Jorge Cisneros Unavailable [phone] Allergies No Known Allergies Reason For Referral No Information Medications Medication SIG (Take, Route, Frequency, Duration) Notes Start Date End Date Status Omeprazole 20 MG Capsule Delayed Release 1 Orally Every morning; Duration: 30 day(s) 08/29/2023 Active Omeprazole 40 MG Capsule Delayed Release 1 every morning Orally Once every morning; Duration: 30 days 05/19/2023 Active Multivitamin Adult - Tablet 1 tablet Ora lly Once a day; Duration: 30 day(s) Active Atorvastatin Calcium 10 MG Tablet TAKE ONE TABLET BY MOUTH EVERY DAY Oral; Duration: 90 Active Fish Oil Active Social History Tobacco Use: Social History Observation Description Date Details (start date - stop date) Never Smoker NA - NA Social History Drugs/Alcohol: Social Info Question Answer Notes Alcohol Screen Did you have a drink containing alcohol in the past year? Yes How often did you have a drink containing alcohol in the past year? 2 to 4 times a month (2 points) How many drinks did you have on a typical day when you were drinking in the past year? 5 or 6 drinks (2 points) Points 4 Interpretation Positive Tobacco Use: Social Info Question Answer Notes Tobacco Use/Smoking Patient is a nonsmoker Additional Details Category Social Info Options Details Miscellaneous: Marital status: Occupation: Financial adviso r Section Notes: Nonsmoker, occ alcohol Nonsmoker, occ alcohol Problems Problem Type SNOMED Code ICD Code Onset Dates Problem Status W/U Status Risk Notes Problem Colon cancer screening (780709160) Colon cancer screening (Z12.11) Active confirmed Problem Gastro-esophageal reflux disease without esophagitis (070513080) Gastro-esophageal reflux disease without esophagitis (K21.9) Active confirmed Problem Duodenitis (28477113) Duodenitis (K29.80) Active confirmed Problem Family History of Cancer of Colon (Situation) (758712756) Family history of colon cancer (Z80.0) Active confirmed Problem Acute gastric ulcer (69053133) Acute gastric ulcer (K25.3) Active confirmed Problem Gastritis (2290565) Gastritis (K29.70) Active c onfirmed Problem Gastric ulcer (060535459) Gastric ulcer (K25.9) Active confirmed Problem Family history of malignant neoplasm of gastrointestinal tract (067687468) Family history of esophageal cancer (Z80.0) Active confirmed Problem Gastroesophageal reflux disease (814063534) Gastroesophageal reflux disease, unspecified whether esophagitis present (K21.9) Active confirmed Problem Gastroesophageal reflux disease (disorder) (131949230) Chronic GERD (K21.9) Active confirmed Plan Of Treatment Future Test Test Name Order Date UPPER GI ENDOSCOPY 12/02/2022 COLONOSCOPY 12/02/2022 UPPER GI ENDOSCOPY 08/29/2023 Insurance Providers Payer Name Payer Address Payer Phone Subscriber Number Group Number Insured Name Patient Relationship to Insured Coverage Start Date Coverage End Date [facility] [address] [place], [place] [id number] [phone] [id number] TIEN Potts LISA Self - patient is the insured Medical (General) History Medical History History ICD Code Denies PR,DM,CVA,Lung disease,renal dise ase Hypercholesterolemia Screening colonoscopy on [...]
== END 2025-04-01 10:51 | disposition home or self-care (01) ==
LOC: HO.LNP 10:50
PROVIDERS: Visit Provider Internal Medicine
DX: Z00.00 Encounter for general adult medical examination without abnormal findings (principal); Z12.5 Encounter for screening for malignant neoplasm of prostate; R79.89 Other specified abnormal findings of blood chemistry; E78.5 Hyperlipidemia, unspecified
CPT/HCPCS: 80053; 80061; 81001; 84153; 85025

== ENCOUNTER 2025-04-08 12:14 | Outpatient (REF) | payer BC, SELFPAY ==
[2025-04-08 12:26] LABS: Appearance Urine Clear; Glucose Urine UA Negative (Negative); PH 6.5 (5.0-9.0); Specific Gravity - Urine 1.015 (1.005-1.025)
--- OUTSIDE RECORDS SUMMARY | 2025-04-08 14:17 | XMS_ITS | Encounter Summary ---
Author Organization [facility] Address [address] [facility] [address] [place] [phone] Phone Care Team Providers Care Load Dispatcher Local Name Role Phone Gordon Cali MD Primary Care Provider Encounter Details Date Type Department Care Team (Latest Contact Info) Description 08/24/2015 Transcribe Orders [facility] Otology Main [address] [address] Fransisco Barr MD [address] [place] [phone] [email or web address] (sensorineural hearing loss) (Primary Dx) Social [...] loss documented in this encounter Care Teams Load Dispatcher Local Relationship Specialty Start Date End Date Gordon Cali MD [address] [place] [address] [place] [address] PCP - General Internal Medicine 08/17/15 documented as of this encounter Additional Source Comments The information contained in this document represents components of the legal health record. It is not the complete legal health record.[facility]
--- OUTSIDE RECORDS SUMMARY | 2025-04-08 14:17 | XMS_ITS | Clinical Summary ---
Author Organization [facility] Address [address] [address] [place] [phone] Phone Care Team Providers Care Whipped Topping Supervisor Name Role Phone Gordon Cali MD Primary [...] 9:51 AM EDT) HCV ANTIBODY Negative Negative [facility] Comment:Antibodies to HCV no t detected. Does not exclude the possibility of exposure to HCV. 08/03/2020 9:51 AM EDT 08/03/2020 3:19 PM EDT us Ivon Kelly MD LAB BLOOD BKR ORDERABLES Fi nal Result [address] [address] from Last 3 Months or Most Recently Relevant to Health Maintenance Insurance [employer]IG[employer] PPO CIGNA PPO CIGNA PPO CIGNA PPO [employer]IG[employer] PPO [employer]IG[employer] PPO [employer]IG[employer] PPO [employer] PPO [employer]IG[employer] PPO Care Teams Whipped Topping Supervisor Relationship Specialty Start Date End Date Gordon Cali MD [address] [place] [address] [place] [address] PCP - General Internal Medicine 08/17/15 Additional Source Comments The information contained in this document represents components of the legal health record. It is not the complete legal health record.[facility]
--- OUTSIDE RECORDS SUMMARY | 2025-04-08 14:17 | XMS_ITS | Clinical Summary ---
Author Organization [facility] Address [address] [place] [address] Care Team Providers Care Erp Programmer Name Role Phone Damian Cali MD Primary Care Provider [phone] Social History Tobacco Use Types Packs/Day Years [...] vaccine 12/06/2024 Covid-19 vaccine series ( - 2024-26 season) 2025 RSV Immunization (1 - 1-dose [...] Payer ID:[id number] (NAIC) Type:Not on file Address: [place] [id number] [facility] CIG CIGNA Care Teams Erp Programmer Relationship Specialty Start Date End Date Damian Cali MD [address] [place] [phone] PCP - General Internal Medicine 08/06/18
== END 2025-04-08 12:15 | disposition home or self-care (01) ==
LOC: HO.LNP 12:14
PROVIDERS: Visit Provider Internal Medicine
DX: R31.9 Hematuria, unspecified (principal)
CPT/HCPCS: 81001